=== PATIENT | male | born 1960 | race African-American/Black ===

== ENCOUNTER 2017-03-28 16:10 | Inpatient (IN) | payer OTHER ==
[2017-03-28 16:56] VITALS: BMI 30.6
[2017-03-28] MEDS ORDERED: guaiFENesin/D-METHORPHAN HB 10 ML UNIT-DOSE CUPS PO PRN (17:16)
[2017-03-28] MEDS ORDERED: MAGNESIUM HYDROX 2400MG/30ML ORAL SUSPENSION 30 ML CUP PO PRN (17:16)
[2017-03-28] MEDS ORDERED: chlordiazePOXIDE HCL 25 MG CAPSULE PO PRN (17:16)
[2017-03-28] MEDS ORDERED: MAGNESIUM CITRATE 300 ML BOTTLE PO PRN (17:16)
[2017-03-28] MEDS ORDERED: MAG HYDROX/AL HYDROX/SIMETH 30 ML UNIT-DOSE CUP PO PRN (17:16)
[2017-03-28] MEDS ORDERED: chlordiazePOXIDE HCL 25 MG CAPSULE PO ONE (17:16)
[2017-03-28] MEDS ORDERED: IBUPROFEN 400 MG TABLET (FP) PO PRN (17:16)
[2017-03-28] MEDS ORDERED: ACETAMINOPHEN 325 MG TABLET (FP) PO PRN (17:16)
[2017-03-28] MEDS ORDERED: P-EPHED 60MG/TRIPROLIDI 2.5MG TABLET PO PRN (17:16)
[2017-03-28] MEDS ORDERED: LOPERAMIDE HCL 2 MG CAPSULE PO PRN (17:16)
[2017-03-28] MEDS ORDERED: hydrOXYzine PAMOATE 50 MG CAPSULE (FP) PO PRN (17:16)
[2017-03-28] MEDS ORDERED: MENTHOL/PHENOL 1 EACH UD MM PRN (17:16)
--- NOTE | 2017-03-28 17:27 | HP ---
CIWA Score - CIWA Score Nausea/Vomitin Muscle Tremors: 4-Moderate,w/Arms Extend Anxiety: 4-Mod. Anxious/Guarded Agitation: 4-Moderately Restless Paroxysmal Sweats: 3 Orientation: 0-Oriented Tacttile Disturbances: 0-None Auditory Disturbances: 0-None Visual Disturbances: 0-None Headache: 0-None Present CIWA-Ar Total Score: 18 Admission ROS BHS - HPI Chief Complaint: Withdrawal sx. Allergies/Adverse Reactions: Allergies Allergy/AdvReac Type Severity Reaction Status Date / Time Penicillins Allergy Severe Rash Verified 07/05/14 11:50 History of Present Illness: 56 y/o man with a long hx. of alcoholism is admitted for detox. Pt. has been in previous detox, reports 3 yrs. sobriety which included residential. Exam Limitations: No Limitations - Ebola screening Have you traveled outside of the country in the last 21 days: No (N) Have you had contact with anyone from an Ebola affected area: No Have you been sick,other than usual withdrawal symptoms: No Do you have a fever: No - Review of Systems Constitutional: Diaphoresis EENT: reports: No Symptoms Reported Respiratory: reports: No Symptoms reported Cardiac: reports: No Symptoms Reported GI: reports: Nausea, Abdominal cramping : reports: No Symptoms Reported Musculoskeletal: reports: Joint Pain Integumentary: reports: Sweating Neuro: reports: Tingling, Tremors Endocrine: reports: No Symptoms Reported Hematology: reports: No Symptoms Reported Psychiatric: reports: No Sypmtoms Reported Other Systems: Reviewed and Negative Patient History - Patient Medical History Hx Anemia: No Hx Asthma: No Hx Chronic Obstructive Pulmonary Disease (COPD): No Hx Cancer: No Hx Cardiac Disorders: No Hx Congestive Heart Failure: No Hx Hypertension: Yes (ON NORVASC) Hx Hypercholesterolemia: No Hx Pacemaker: No HX Cerebrovascular Accident: No Hx Seizures: No Hx Dementia: No Hx Diabetes: No Hx Gastrointestinal Disorders: No Hx Liver Disease: No Hx Genitourinary Disorders: No Hx Sexually Transmitted Disorders: No Hx Renal Disease (ESRD): No Hx Thyroid Disease: No Hx Human Immunodeficiency Virus (HIV): No Hx Hepatitis C: No Hx Depression: No Hx Suicide Attempt: No Hx Bipolar Disorder: No Hx Schizophrenia: No - Patient Surgical History Past Surgical History: No Hx Neurologic Surgery: No Hx Cataract Extraction: No Hx Cardiac Surgery: No Hx Lung Surgery: No Hx Breast Surgery: No Hx Breast Biopsy: No Hx Abdominal Surgery: No Hx Appendectomy: No Hx Cholecystectomy: No Hx Genitourinary Surgery: No Hx Section: No Hx Orthopedic Surgery: No - PPD History Previous Implant?: Yes Documented Results: Negative w/proof Implanted On Prior [facility] Admission?: Yes Date: 07/07/14 Results: 0 mm PPD to be Administered?: Yes - Smoking Cessation Smoking history: Former smoker (quit 30 yrs. ago) Have you smoked in the past 12 months: No Hx Chewing Tobacco Use: No Initiated information on smoking cessation: No - Substance & Tx. History Hx Alcohol Use: Yes Hx Substance Use: No Substance Use Type: Alcohol Hx Substance Use Treatment: Yes (Detox 11/2014) - Substances Abused Alcohol Route: Oral Frequency: Daily Amount used: vodka 1-2 pints Age of first use: 16 Date of Last Use: 03/28/17 Family Disease History - Family Disease History Family Disease History: Diabetes: Mother Admission Physical Exam [facility] - Vital Signs Vital Signs: Vital Signs - 24 hr 03/28/17 16:53 Temperature 98.2 F Pulse Rate 90 Respiratory 20 Rate Blood Pressure 155/85 - Physical General Appearance: Yes: Tremorous, Irritable, Sweating, Anxious HEENTM: Yes: Within Normal Limits Respiratory: Yes: Chest Non-Tender, Lungs Clear, Normal Breath Sounds Neck: Yes: Supple Breast: Yes: Breast Exam Deferred Cardiology: Yes: Regular Rhythm, Regular Rate, S1, S2 Abdominal: Yes: Normal Bowel Sounds, Non Tender, Flat Genitourinary: Yes: Within Normal Limits Back: Yes: Within Normal Limits Musculoskeletal: Yes: Within Normal Limits Extremities: Yes: Tremors Neurological: Yes: Fully Oriented, Alert Integumentary: Yes: Diaphoresis Lymphatic: Yes: Within Normal Limits - Diagnostic (1) Alcohol dependence with uncomplicated withdrawal Current Visit: Yes Status: Acute (2) Arthritis of both knees Current Visit: Yes Status: Acute (3) Essential hypertension Current Visit: Yes Status: Chronic Cleared for Admission [facility] - Detox or Rehab [facility] Level of Care: Medically Managed Detox Regimen/Protocol: Librium [facility] Breath Alcohol Content Breath Alcohol Content: 0 Urine Drug Screen - Results Drug Screen Negative: Yes Urine Drug Screen Results: BZO-Benzodiazepines
[2017-03-28] MEDS: amLODIPine BESYLATE 10 MG TABLET (FP) PO SCH (19:31)
[2017-03-28] MEDS: THIAMINE HCL 100 MG TABLET (FP) PO SCH (22:36)
[2017-03-28] MEDS: chlordiazePOXIDE HCL 25 MG CAPSULE PO SCH (22:36)
[2017-03-29] MEDS: chlordiazePOXIDE HCL 25 MG CAPSULE PO SCH ×4 (05:58→22:42)
[2017-03-29 10:32] LABS: HEMATOCRIT 38.6 % (35.4-49); HEMOGLOBIN 12.1 GM/dL (11.7-16.9); MCH 21.8 pg (25.7-33.7); MCHC 31.2 g/dl (32.0-35.9); MEAN CELL VOLUME 69.7 fl (80-96); MEAN PLT VOLUME 9.1 fl (7.5-11.1); PLATELET COUNT 176 K/MM3 (134-434); RBC 5.54 M/mm3 (4.00-5.60); RDW 17.3 % (11.9-15.9); WHITE BLOOD COUNT 4.2 K/mm3 (4.0-10.0)
[2017-03-29 10:34] LABS: ALBUMIN 3.5 g/dl (3.4-5.0); ANION GAP 8 (8-16); BLOOD UREA NITROGEN 20 mg/dL (7-18); CALCIUM 8.3 mg/dL (8.5-10.1); CHLORIDE 104 mmol/L (98-107); CO2 26 mmol/L (21-32); CREATININE 0.9 mg/dL (0.7-1.3); GLUCOSE,RANDOM 73 mg/dL (74-106); POTASSIUM 3.7 mmol/L (3.5-5.1); SGOT/AST 51 U/L (15-37); SGPT/ALT 72 U/L (12-78); SODIUM 138 mmol/L (136-145)
[2017-03-29 10:35] LABS: ALK PHOS 74 U/L (45-117); BILIRUBIN,TOTAL 0.4 mg/dL (0.2-1.0); TOT PROT 7.1 g/dl (6.4-8.2)
[2017-03-29] MEDS: amLODIPine BESYLATE 10 MG TABLET (FP) PO SCH (10:38)
[2017-03-29] MEDS: PRENATAL VITAMINS W/ FOLIC ACID TABLET (FP) PO SCH (10:38)
[2017-03-29 12:33] LABS: URINE APPEARANCE CLEAR; URINE BILIRUBIN NEGATIVE (NEGATIVE); URINE BLOOD NEGATIVE (NEGATIVE); URINE COLOR LTYELLOW; URINE GLUCOSE (UA) NEGATIVE (NEGATIVE); URINE KETONE NEGATIVE (NEGATIVE); URINE LEUK ESTERASE NEGATIVE (NEGATIVE); URINE NITRITE NEGATIVE (NEGATIVE); URINE PROTEIN NEGATIVE (NEGATIVE); URINE UROBILINOGEN NEGATIVE mg/dL (0.2-1.0)
--- NOTE | 2017-03-29 12:51 | EKG ---
Test Reason : Blood Pressure : / mmHG Vent. Rate : 090 BPM Atrial Rate : 090 BPM P-R Int : 182 ms QRS Dur : 088 ms QT Int : 362 ms P-R-T Axes : 059 005 036 degrees QTc Int : 442 ms NORMAL SINUS RHYTHM NORMAL ECG NO PREVIOUS ECGS AVAILABLE Confirmed by Yohannes Coe ([id number]) on 03/29/2017 12:51:20 PM Referred By: Confirmed By:Yohannes Coe
--- NOTE | 2017-03-29 17:05 | PN ---
[facility] CIWA - CIWA Score Nausea/Vomitin Muscle Tremors: 3 Anxiety: 3 Agitation: 3 Paroxysmal Sweats: 3 Orientation: 0-Oriented Tacttile Disturbances: 1-Very Mild Itch/Numbness Auditory Disturbances: 0-None Visual Disturbances: 0-None Headache: 0-None Present CIWA-Ar Total Score: 15 [facility] Progress Note (SOAP) Subjective: Sweating, nausea, anxious, interrupted sleep Objective: 03/29/17 17:02 Last Vital Signs Temp Pulse Resp BP Pulse Ox 98.6 F 84 18 126/83 03/29/17 13:32 03/29/17 13:32 03/29/17 13:32 03/29/17 13:32 Laboratory Tests 03/29/17 03/29/17 03/29/17 07:40 07:40 07:40 WBC 4.2 D RBC 5.54 Hgb 12.1 Hct 38.6 MCV 69.7 L MCH 21.8 L MCHC 31.2 L RDW 17.3 H Plt Count 176 MPV 9.1 Sodium 138 Potassium 3.7 Chloride 104 Carbon Dioxide 26 Anion Gap 8 BUN 20 H D Creatinine 0.9 Creat Clearance w eGFR > 60 Random Glucose 73 L D Calcium 8.3 L Total Bilirubin 0.4 D AST 51 H D ALT 72 D Alkaline Phosphatase 74 Total Protein 7.1 Albumin 3.5 Urine Color Urine Appearance Urine pH Ur Specific [place] Urine Protein Urine Glucose (UA) Urine Ketones Urine Blood Urine Nitrite Urine Bilirubin Urine Urobilinogen Ur Leukocyte Esterase RPR Titer Nonreactive 03/29/17 10:56 WBC RBC Hgb Hct MCV MCH MCHC RDW Plt Count MPV Sodium Potassium Chloride Carbon Dioxide Anion Gap BUN Creatinine Creat Clearance w eGFR Random Glucose Calcium Total Bilirubin AST ALT Alkaline Phosphatase Total Protein Albumin Urine Color Ltyellow Urine Appearance Clear Urine pH 6.0 Ur Specific [place] 1.019 Urine Protein Negative Urine Glucose (UA) Negative Urine Ketones Negative Urine Blood Negative Urine Nitrite Negative Urine Bilirubin Negative Urine Urobilinogen Negative Ur Leukocyte Esterase Negative RPR Titer Labs noted: bun 20 Assessment: 03/29/17 17:04 Withdrawal symptoms Noted with azotemia Plan: Continue detox Azotemia: encouraged to drink lots of water
[2017-03-29] MEDS: THIAMINE HCL 100 MG TABLET (FP) PO SCH (22:42)
[2017-03-30] MEDS: chlordiazePOXIDE HCL 25 MG CAPSULE PO SCH ×3 (05:51→17:31)
[2017-03-30] MEDS: amLODIPine BESYLATE 10 MG TABLET (FP) PO SCH (10:35)
[2017-03-30] MEDS: PRENATAL VITAMINS W/ FOLIC ACID TABLET (FP) PO SCH (10:35)
--- NOTE | 2017-03-30 12:23 | PN ---
[facility] CIWA - CIWA Score Nausea/Vomitin-No Nausea/No Vomiting Muscle Tremors: 4-Moderate,w/Arms Extend Anxiety: 4-Mod. Anxious/Guarded Agitation: 3 Paroxysmal Sweats: 1-Minimal Palms Moist Orientation: 0-Oriented Tacttile Disturbances: 3-Moderate Itch/Numb/Burn Auditory Disturbances: 0-None Visual Disturbances: 0-None Headache: 0-None Present CIWA-Ar Total Score: 15 [facility] Progress Note (SOAP) Subjective: SLIGHT ANXIETY,SWEATS,FATIGUE. Objective: 03/30/17 12:22 Vital Signs Temperature 98.2 F 03/30/17 09:48 Pulse Rate 91 H 03/30/17 09:48 Respiratory Rate 18 03/30/17 09:48 Blood Pressure 123/79 03/30/17 09:48 O2 Sat by Pulse Oximetry (%) Laboratory Last Values WBC 4.2 K/mm3 (4.0-10.0) D 03/29/17 07:40 RBC 5.54 M/mm3 (4.00-5.60) 03/29/17 07:40 Hgb 12.1 GM/dL (11.7-16.9) 03/29/17 07:40 Hct 38.6 % (35.4-49) 03/29/17 07:40 MCV 69.7 fl (80-96) L 03/29/17 07:40 MCH 21.8 pg (25.7-33.7) L 03/29/17 07:40 MCHC 31.2 g/dl (32.0-35.9) L 03/29/17 07:40 RDW 17.3 % (11.9-15.9) H 03/29/17 07:40 Plt Count 176 K/MM3 (134-434) 03/29/17 07:40 MPV 9.1 fl (7.5-11.1) 03/29/17 07:40 Sodium 138 mmol/L (136-145) 03/29/17 07:40 Potassium 3.7 mmol/L (3.5-5.1) 03/29/17 07:40 Chloride 104 mmol/L (98-107) 03/29/17 07:40 Carbon Dioxide 26 mmol/L (21-32) 03/29/17 07:40 Anion Gap 8 (8-16) 03/29/17 07:40 BUN 20 mg/dL (7-18) H D 03/29/17 07:40 Creatinine 0.9 mg/dL (0.7-1.3) 03/29/17 07:40 Creat Clearance w eGFR > 60 (>60) 03/29/17 07:40 Random Glucose 73 mg/dL (74-106) L D 03/29/17 07:40 Calcium 8.3 mg/dL (8.5-10.1) L 03/29/17 07:40 Total Bilirubin 0.4 mg/dL (0.2-1.0) D 03/29/17 07:40 AST 51 U/L (15-37) H D 03/29/17 07:40 ALT 72 U/L (12-78) D 03/29/17 07:40 Alkaline Phosphatase 74 U/L (45-117) 03/29/17 07:40 Total Protein 7.1 g/dl (6.4-8.2) 03/29/17 07:40 Albumin 3.5 g/dl (3.4-5.0) 03/29/17 07:40 Urine Color Ltyellow 03/29/17 10:56 Urine Appearance Clear 03/29/17 10:56 Urine pH 6.0 (5.0-8.0) 03/29/17 10:56 Ur Specific [place] 1.019 (1.001-1.035) 03/29/17 10:56 Urine Protein Negative (NEGATIVE) 03/29/17 10:56 Urine Glucose (UA) Negative (NEGATIVE) 03/29/17 10:56 Urine Ketones Negative (NEGATIVE) 03/29/17 10:56 Urine Blood Negative (NEGATIVE) 03/29/17 10:56 Urine Nitrite Negative (NEGATIVE) 03/29/17 10:56 Urine Bilirubin Negative (NEGATIVE) 03/29/17 10:56 Urine Urobilinogen Negative mg/dL (0.2-1.0) 03/29/17 10:56 Ur Leukocyte Esterase Negative (NEGATIVE) 03/29/17 10:56 RPR Titer Nonreactive (NONREACTIVE) 03/29/17 07:40 Assessment: 03/30/17 12:22 WITHDRAWAL SX Plan: CONTINUE DETOX.
--- NOTE | 2017-03-30 12:24 | CONSULT ---
[facility] Psychiatric Consult - Data Date of interview: 03/30/17 Admission source: [facility] Identifying data: Pt. is a 56 year old male, single, father of two, currently working and collecting SSI. [facility] Pt. admitted to for Alcohol dependence. Substance Abuse History: - Substance & Tx. History. Hx Alcohol Use: Yes. Hx Substance Use: No. Substance Use Type: Alcohol. Hx Substance Use Treatment: Yes (Detox 11/2014). - Substances Abused. Alcohol. Route: Oral. Frequency : Daily. Amount used: vodka 1-2 pints. Age of first use: 16. Date of Last Use : Medical History: Hypertension. Psychiatric History: Pt. reports approximately 12 psychiatric hospitalizations, most recently hospitalized at [facility] in 2015 for depression and at [facility] in 2014. Pt. has also been hospitalized at [place] and at [facility] in [place]. States he has a diagnosis of Bipolar disorder and schizophrenia but is Medication nonadherent. Reports previously taking seroquel 3-4 months ago. Pt. denies OPC. States his PCP prescribes him xanax and ambien. Pt. denies h/o suicide attempt. Physical/Sexual Abuse/Trauma History: Denies. Mental Status Exam - Mental Status Exam Alert and Oriented to: Time, Place, Person Cognitive Function: Good Patient Appearance: Well Groomed Mood: Hopeful Affect: Mood Congruent Patient Behavior: Appropriate, Cooperative Speech Pattern: Clear, Appropriate Voice Loudness: Normal Thought Process: Goal Oriented Thought Disorder: Not Present Hallucinations: Denies Suicidal Ideation: Denies Homicidal Ideation: Denies Insight/Judgement: Poor Sleep: Poorly Appetite: Good Muscle strength/Tone: Normal Gait/Station: Normal Psychiatric Findings - Problem List (Gilbert 1, 2,3) (1) Alcohol dependence with uncomplicated withdrawal Current Visit: Yes Status: Acute (2) Insomnia Current Visit: Yes Status: Acute (3) Bipolar disorder Current Visit: No Status: Chronic Comment: Self reports. (4) Schizophrenia Current Visit: No Status: Chronic Comment: Self reports. - Initial Treatment Plan Initial Treatment Plan: Psychoeducation provided. Detoxification in progress. Ambien 10mg qhs prn ordered. Verbal consent given. Benefits and side effects ( sleep walking) discussed. Will continue to monitor patient.
[2017-03-30] MEDS: chlordiazePOXIDE 5 MG CAPSULE PO SCH (22:37)
[2017-03-30] MEDS: ZOLPIDEM TARTRATE 10 MG TABLET (PARK CARE ONLY) PO PRN (22:37)
[2017-03-30] MEDS: THIAMINE HCL 100 MG TABLET (FP) PO SCH (22:38)
[2017-03-31] MEDS: chlordiazePOXIDE 5 MG CAPSULE PO SCH ×3 (05:42→17:21)
[2017-03-31] MEDS: amLODIPine BESYLATE 10 MG TABLET (FP) PO SCH (10:50)
[2017-03-31] MEDS: PRENATAL VITAMINS W/ FOLIC ACID TABLET (FP) PO SCH (10:50)
--- NOTE | 2017-03-31 15:33 | PN ---
S Progress Note (SOAP) Subjective: OOB AMBULATING WITH STEADY GAIT. NAD. SLIGHT ANXIETY BUT REPORTS DETOX PROCEEDING WELL. Objective: 03/31/17 15:33 Vital Signs Temperature 98.7 F 03/31/17 13:54 Pulse Rate 87 03/31/17 13:54 Respiratory Rate 18 03/31/17 13:54 Blood Pressure 145/99 03/31/17 13:54 O2 Sat by Pulse Oximetry (%) Laboratory Last Values WBC 4.2 K/mm3 (4.0-10.0) D 03/29/17 07:40 RBC 5.54 M/mm3 (4.00-5.60) 03/29/17 07:40 Hgb 12.1 GM/dL (11.7-16.9) 03/29/17 07:40 Hct 38.6 % (35.4-49) 03/29/17 07:40 MCV 69.7 fl (80-96) L 03/29/17 07:40 MCH 21.8 pg (25.7-33.7) L 03/29/17 07:40 MCHC 31.2 g/dl (32.0-35.9) L 03/29/17 07:40 RDW 17.3 % (11.9-15.9) H 03/29/17 07:40 Plt Count 176 K/MM3 (134-434) 03/29/17 07:40 MPV 9.1 fl (7.5-11.1) 03/29/17 07:40 Sodium 138 mmol/L (136-145) 03/29/17 07:40 Potassium 3.7 mmol/L (3.5-5.1) 03/29/17 07:40 Chloride 104 mmol/L (98-107) 03/29/17 07:40 Carbon Dioxide 26 mmol/L (21-32) 03/29/17 07:40 Anion Gap 8 (8-16) 03/29/17 07:40 BUN 20 mg/dL (7-18) H D 03/29/17 07:40 Creatinine 0.9 mg/dL (0.7-1.3) 03/29/17 07:40 Creat Clearance w eGFR > 60 (>60) 03/29/17 07:40 Random Glucose 73 mg/dL (74-106) L D 03/29/17 07:40 Calcium 8.3 mg/dL (8.5-10.1) L 03/29/17 07:40 Total Bilirubin 0.4 mg/dL (0.2-1.0) D 03/29/17 07:40 AST 51 U/L (15-37) H D 03/29/17 07:40 ALT 72 U/L (12-78) D 03/29/17 07:40 Alkaline Phosphatase 74 U/L (45-117) 03/29/17 07:40 Total Protein 7.1 g/dl (6.4-8.2) 03/29/17 07:40 Albumin 3.5 g/dl (3.4-5.0) 03/29/17 07:40 Urine Color Ltyellow 03/29/17 10:56 Urine Appearance Clear 03/29/17 10:56 Urine pH 6.0 (5.0-8.0) 03/29/17 10:56 Ur Specific [place] 1.019 (1.001-1.035) 03/29/17 10:56 Urine Protein Negative (NEGATIVE) 03/29/17 10:56 Urine Glucose (UA) Negative (NEGATIVE) 03/29/17 10:56 Urine Ketones Negative (NEGATIVE) 03/29/17 10:56 Urine Blood Negative (NEGATIVE) 03/29/17 10:56 Urine Nitrite Negative (NEGATIVE) 03/29/17 10:56 Urine Bilirubin Negative (NEGATIVE) 03/29/17 10:56 Urine Urobilinogen Negative mg/dL (0.2-1.0) 03/29/17 10:56 Ur Leukocyte Esterase Negative (NEGATIVE) 03/29/17 10:56 RPR Titer Nonreactive (NONREACTIVE) 03/29/17 07:40 Assessment: 03/31/17 15:33 WITHDRAWAL SX Plan: CONTINUE DETOX
[2017-03-31] MEDS: THIAMINE HCL 100 MG TABLET (FP) PO SCH (22:25)
[2017-03-31] MEDS: ZOLPIDEM TARTRATE 10 MG TABLET (PARK CARE ONLY) PO PRN (22:25)
[2017-03-31 22:26] VITALS: PULSE 93
[2017-03-31] MEDS: chlordiazePOXIDE HCL 10 MG CAPSULE PO SCH (22:27)
[2017-04-01] MEDS: chlordiazePOXIDE HCL 10 MG CAPSULE PO SCH (05:23)
[2017-04-01 06:20] VITALS: BP 156/94; TEMP 97.8
--- NOTE | 2017-04-01 08:32 | DS ---
[facility] Detox Discharge Summary Admission Date: 03/28/17 Discharge Date: 04/01/17 - History Present History: Alcohol Dependence Additional Comments: DETOX COMPLETED. ALERT O X3. NAD. PT REPORTS HAS OWN PMD AND HAS APPOINTMENT IN 2 WEEKS.. INSTRUCTED PT TO FOLLOW UP WITH PMD NEEDED. NORVASC 10 MG PO DAILY RX FOR #30 SENT TO PT'SPHARMACY TILL HE CAN GET TO HIS DOCTOR. Pertinent Past History: HTN ARTHRITIS - Physical Exam Results Vital Signs: Vital Signs Temperature 97.8 F 04/01/17 06:19 Pulse Rate 93 H 04/01/17 06:19 Respiratory Rate 18 04/01/17 06:19 Blood Pressure 156/94 04/01/17 06:19 O2 Sat by Pulse Oximetry (%) Pertinent Admission Physical Exam Findings: WITHDRAWAL SX Laboratory Last Values WBC 4.2 K/mm3 (4.0-10.0) D 03/29/17 07:40 RBC 5.54 M/mm3 (4.00-5.60) 03/29/17 07:40 Hgb 12.1 GM/dL (11.7-16.9) 03/29/17 07:40 Hct 38.6 % (35.4-49) 03/29/17 07:40 MCV 69.7 fl (80-96) L 03/29/17 07:40 MCH 21.8 pg (25.7-33.7) L 03/29/17 07:40 MCHC 31.2 g/dl (32.0-35.9) L 03/29/17 07:40 RDW 17.3 % (11.9-15.9) H 03/29/17 07:40 Plt Count 176 K/MM3 (134-434) 03/29/17 07:40 MPV 9.1 fl (7.5-11.1) 03/29/17 07:40 Sodium 138 mmol/L (136-145) 03/29/17 07:40 Potassium 3.7 mmol/L (3.5-5.1) 03/29/17 07:40 Chloride 104 mmol/L (98-107) 03/29/17 07:40 Carbon Dioxide 26 mmol/L (21-32) 03/29/17 07:40 Anion Gap 8 (8-16) 03/29/17 07:40 BUN 20 mg/dL (7-18) H D 03/29/17 07:40 Creatinine 0.9 mg/dL (0.7-1.3) 03/29/17 07:40 Creat Clearance w eGFR > 60 (>60) 03/29/17 07:40 Random Glucose 73 mg/dL (74-106) L D 03/29/17 07:40 Calcium 8.3 mg/dL (8.5-10.1) L 03/29/17 07:40 Total Bilirubin 0.4 mg/dL (0.2-1.0) D 03/29/17 07:40 AST 51 U/L (15-37) H D 03/29/17 07:40 ALT 72 U/L (12-78) D 03/29/17 07:40 Alkaline Phosphatase 74 U/L (45-117) 03/29/17 07:40 Total Protein 7.1 g/dl (6.4-8.2) 03/29/17 07:40 Albumin 3.5 g/dl (3.4-5.0) 03/29/17 07:40 Urine Color Ltyellow 03/29/17 10:56 Urine Appearance Clear 03/29/17 10:56 Urine pH 6.0 (5.0-8.0) 03/29/17 10:56 Ur Specific [place] 1.019 (1.001-1.035) 03/29/17 10:56 Urine Protein Negative (NEGATIVE) 03/29/17 10:56 Urine Glucose (UA) Negative (NEGATIVE) 03/29/17 10:56 Urine Ketones Negative (NEGATIVE) 03/29/17 10:56 Urine Blood Negative (NEGATIVE) 03/29/17 10:56 Urine Nitrite Negative (NEGATIVE) 03/29/17 10:56 Urine Bilirubin Negative (NEGATIVE) 03/29/17 10:56 Urine Urobilinogen Negative mg/dL (0.2-1.0) 03/29/17 10:56 Ur Leukocyte Esterase Negative (NEGATIVE) 03/29/17 10:56 RPR Titer Nonreactive (NONREACTIVE) 03/29/17 07:40 - Treatment Hospital Course: Detox Protocol Followed, Detoxed Safely, Responded well, Discharged Condition Good - Medication Discharge Medications: Ambulatory Orders Amlodipine Besylate [Norvasc -] 10 mg PO DAILY #30 tablet 04/01/17 - Diagnosis (1) Alcohol dependence with uncomplicated withdrawal Status: Acute (2) Arthritis of both knees Status: Chronic (3) Essential hypertension Status: Chronic - AMA Did Patient Leave Against Medical Advice: No
== END 2017-04-01 08:38 | disposition home or self-care (01) | DRG 897 ==
LOC: YASAS 16:10 → Y3N 17:11
PROVIDERS: ADMIT Internal Medicine; ATTEND Internal Medicine
PROC: HZ2ZZZZ Detoxification Services for Substance Abuse Treatment (ICD-10-PCS; principal; 2017-03-28)
DX: F10.230 Alcohol dependence with withdrawal, uncomplicated (principal); F31.9 Bipolar disorder, unspecified; F20.9 Schizophrenia, unspecified; I10 Essential (primary) hypertension; M13.862 Other specified arthritis, left knee; M13.861 Other specified arthritis, right knee; G47.00 Insomnia, unspecified; R79.89 Other specified abnormal findings of blood chemistry; Z88.0 Allergy status to penicillin; Z87.891 Personal history of nicotine dependence
CPT/HCPCS: 36415; 80053; 81003; 85027; 86593; 93005; 93010

== ENCOUNTER 2017-05-24 18:04 | Inpatient (IN) | payer MEDICARE, OTHER ==
[2017-05-24 18:29] VITALS: BMI 30.7
--- NOTE | 2017-05-24 20:26 | HP ---
CIWA Score - CIWA Score Nausea/Vomitin Muscle Tremors: 4-Moderate,w/Arms Extend Anxiety: 4-Mod. Anxious/Guarded Agitation: 4-Moderately Restless Paroxysmal Sweats: 1-Minimal Palms Moist Orientation: 0-Oriented Tacttile Disturbances: 1-Very Mild Itch/Numbness Auditory Disturbances: 0-None Visual Disturbances: 0-None Headache: 0-None Present CIWA-Ar Total Score: 17 Admission ROS S - HPI Chief Complaint: Alcohol withdrawal symptoms Allergies/Adverse Reactions: Allergies Allergy/AdvReac Type Severity Reaction Status Date / Time Penicillins Allergy Severe Rash Verified 07/05/14 11:50 History of Present Illness: 56 years old male with a long history of alcohol dependence is seeking admission to detox. Patient has been in previous detox, last at [facility] 2017 - 04/01/2017 and he reports insignificant period of sobriety. Patient has medical history of HTN, depression and arthritis of both knees. He denies suicide attempt and suicidal ideation at this point. Exam Limitations: No Limitations - Ebola screening Have you traveled outside of the country in the last 21 days: No Have you had contact with anyone from an Ebola affected area: No Have you been sick,other than usual withdrawal symptoms: No Do you have a fever: No - Review of Systems Constitutional: Chills, Loss of Appetite, Malaise, Night Sweats, Changes in sleep EENT: reports: No Symptoms Reported Respiratory: reports: Cough Cardiac: reports: No Symptoms Reported GI: reports: Nausea, Poor Appetite, Poor Fluid Intake, Abdominal cramping : reports: No Symptoms Reported Musculoskeletal: reports: Back Pain, Joint Pain, Joint Stiffness Integumentary: reports: Dryness, Flushing Endocrine: reports: Flushing Hematology: reports: No Symptoms Reported Psychiatric: reports: Orientated x3, Anxious Other Systems: Reviewed and Negative Patient History - Patient Medical History Hx Anemia: No Hx Asthma: No Hx Chronic Obstructive Pulmonary Disease (COPD): No Hx Cancer: No Hx Cardiac Disorders: No Hx Congestive Heart Failure: No Hx Hypertension: Yes (Amlodipine ) Hx Hypercholesterolemia: No Hx Pacemaker: No HX Cerebrovascular Accident: No Hx Seizures: No Hx Dementia: No Hx Diabetes: No Hx Gastrointestinal Disorders: No Hx Liver Disease: No Hx Genitourinary Disorders: No Hx Sexually Transmitted Disorders: No Hx Renal Disease (ESRD): No Hx Thyroid Disease: No Hx Human Immunodeficiency Virus (HIV): No (Negative 2017) Hx Hepatitis C: No (Negative 2017) Hx Depression: Yes (Not on medication) Hx Suicide Attempt: No (Denies suicidal ideation at this time) Hx Bipolar Disorder: No Hx Schizophrenia: No Other Medical History: Insomnia -on Ambien; Arthritis of both knees - not on medication - Patient Surgical History Past Surgical History: No Hx Neurologic Surgery: No Hx Cataract Extraction: No Hx Cardiac Surgery: No Hx Lung Surgery: No Hx Abdominal Surgery: No Hx Appendectomy: No Hx Cholecystectomy: No Hx Genitourinary Surgery: No Hx Orthopedic Surgery: No Anesthesia Reaction: No - PPD History Previous Implant?: Yes Documented Results: Negative w/o proof Implanted On Prior [facility] Admission?: Yes Date: 03/30/17 Results: 0 mm PPD to be Administered?: No - Reproductive History Patient is a Female of Child Bearing Age (11 -55 yrs old): No (MALE) - Smoking Cessation Smoking history: Former smoker Have you smoked in the past 12 months: No If you are a former smoker, when did you quit?: 10 YEARS Hx Chewing Tobacco Use: No Initiated information on smoking cessation: No - Substance & Tx. History Hx Alcohol Use: Yes Hx Substance Use: No Hx Substance Use Treatment: Yes ([facility] - 03/28/2015 - 04/01/2017) - Substances Abused Alcohol Route: Oral Frequency: Daily Amount used: 1QUART VODKA AND 4/16OZ BEER Age of first use: 16 Date of Last Use: 05/24/17 Family Disease History - Family Disease History Family Disease History: Diabetes: Mother Admission Physical Exam [facility] - Vital Signs Vital Signs: Vital Signs - 24 hr 05/24/17 18:04 Temperature 97.8 F Pulse Rate 99 H Respiratory 19 Rate Blood Pressure 138/79 - Physical General Appearance: Yes: Moderate Distress, Tremorous, Irritable, Sweating, Anxious HEENTM: Yes: EOMI, Normal ENT Inspection, Normal Voice, MARYSE, Other (partial upper and lower dentures) Respiratory: Yes: Lungs Clear, Normal Breath Sounds, No Respiratory Distress Neck: Yes: Supple Breast: Yes: Breast Exam Deferred Cardiology: Yes: Regular Rhythm, Regular Rate, S1, S2 Abdominal: Yes: Normal Bowel Sounds, Soft Genitourinary: Yes: Within Normal Limits Back: Yes: Normal Inspection Musculoskeletal: Yes: Back pain (lower), Joint Stiffness, Muscle Pain Extremities: Yes: Tremors Neurological: Yes: Alert, Normal Mood/Affect Integumentary: Yes: Warm Lymphatic: Yes: Within Normal Limits - Diagnostic (1) Depression Current Visit: Yes Status: Chronic (2) Alcohol dependence with uncomplicated withdrawal Current Visit: Yes Status: Chronic (3) Arthritis of both knees Current Visit: Yes Status: Chronic (4) Essential hypertension Current Visit: Yes Status: Chronic Cleared for Admission [facility] - Detox or Rehab [facility] Level of Care: Medically Managed Detox Regimen/Protocol: Librium [facility] Breath Alcohol Content Breath Alcohol Content: 0 Urine Drug Screen - Results Drug Screen Negative: No Urine Drug Screen Results: TCA-Tricyclic Antidepress
[2017-05-24] MEDS ORDERED: ACETAMINOPHEN 325 MG TABLET (FP) PO PRN (20:41)
[2017-05-24] MEDS ORDERED: chlordiazePOXIDE HCL 25 MG CAPSULE PO PRN (20:41)
[2017-05-24] MEDS ORDERED: MAGNESIUM HYDROX 2400MG/30ML ORAL SUSPENSION 30 ML CUP PO PRN (20:41)
[2017-05-24] MEDS ORDERED: IBUPROFEN 400 MG TABLET (FP) PO PRN (20:41)
[2017-05-24] MEDS ORDERED: P-EPHED 60MG/TRIPROLIDI 2.5MG TABLET PO PRN (20:41)
[2017-05-24] MEDS ORDERED: LOPERAMIDE HCL 2 MG CAPSULE PO PRN (20:41)
[2017-05-24] MEDS ORDERED: MAGNESIUM CITRATE 300 ML BOTTLE PO PRN (20:41)
[2017-05-24] MEDS ORDERED: MAG HYDROX/AL HYDROX/SIMETH 30 ML UNIT-DOSE CUP PO PRN (20:41)
[2017-05-24] MEDS: THIAMINE HCL 100 MG TABLET (FP) PO SCH (22:09)
[2017-05-24] MEDS: chlordiazePOXIDE HCL 25 MG CAPSULE PO SCH (22:09)
[2017-05-24] MEDS: guaiFENesin/D-METHORPHAN HB 10 ML UNIT-DOSE CUPS PO PRN (22:10)
--- NOTE | 2017-05-24 23:00 | EKG ---
Test Reason : Blood Pressure : / mmHG Vent. Rate : 088 BPM Atrial Rate : 088 BPM P-R Int : 172 ms QRS Dur : 092 ms QT Int : 366 ms P-R-T Axes : 073 005 036 degrees QTc Int : 442 ms NORMAL SINUS RHYTHM NORMAL ECG WHEN COMPARED WITH ECG OF 28-MAR-2017 19:32, NO SIGNIFICANT CHANGE WAS FOUND Confirmed by DEDRA WILL MD ([id number]) on 05/24/2017 10:59:29 PM Referred By: Davi Shah Confirmed By:DEDRA WILL MD
[2017-05-25] MEDS: chlordiazePOXIDE HCL 25 MG CAPSULE PO SCH ×4 (05:02→22:16)
--- NOTE | 2017-05-25 10:11 | PN ---
S CIWA - CIWA Score Nausea/Vomitin-No Nausea/No Vomiting Muscle Tremors: 3 Anxiety: 4-Mod. Anxious/Guarded Agitation: 3 Paroxysmal Sweats: 2 Orientation: 0-Oriented Tacttile Disturbances: 1-Very Mild Itch/Numbness Auditory Disturbances: 0-None Visual Disturbances: 0-None Headache: 0-None Present CIWA-Ar Total Score: 13 [facility] Progress Note (SOAP) Subjective: ANXIETY,IRRITABILITY,SWEATS,INTERMITTENT SLEEP. Objective: 05/25/17 10:10 Vital Signs Temperature 96.8 F L 05/25/17 09:02 Pulse Rate 93 H 05/25/17 09:02 Respiratory Rate 20 05/25/17 09:02 Blood Pressure 133/81 05/25/17 09:02 O2 Sat by Pulse Oximetry (%) LABS PENDING Assessment: 05/25/17 10:11 WITHDRAWAL SX Plan: CONTINUE DETOX
[2017-05-25] MEDS: PRENATAL VITAMINS W/ FOLIC ACID TABLET (FP) PO SCH (10:27)
[2017-05-25] MEDS: amLODIPine BESYLATE 10 MG TABLET (FP) PO SCH (10:27)
[2017-05-25] MEDS: guaiFENesin/D-METHORPHAN HB 10 ML UNIT-DOSE CUPS PO PRN ×2 (10:28→17:13)
[2017-05-25 10:30] LABS: HEMOGLOBIN 10.6 GM/dL (11.7-16.9); MCH 21.3 pg (25.7-33.7); MEAN CELL VOLUME 66.7 fl (80-96); PLATELET COUNT 211 K/MM3 (134-434); RBC 4.96 M/mm3 (4.00-5.60); RDW 17.6 % (11.9-15.9); WHITE BLOOD COUNT 2.4 K/mm3 (4.0-10.0)
[2017-05-25 10:31] LABS: URINE APPEARANCE CLEAR; URINE BILIRUBIN NEGATIVE (NEGATIVE); URINE BLOOD NEGATIVE (NEGATIVE); URINE COLOR LTYELLOW; URINE GLUCOSE (UA) NEGATIVE (NEGATIVE); URINE KETONE NEGATIVE (NEGATIVE); URINE LEUK ESTERASE NEGATIVE (NEGATIVE); URINE NITRITE NEGATIVE (NEGATIVE); URINE PROTEIN NEGATIVE (NEGATIVE); URINE UROBILINOGEN 4.0 E.U/dl mg/dL (0.2-1.0)
[2017-05-25 10:38] LABS: ALBUMIN 3.2 g/dl (3.4-5.0); ALK PHOS 65 U/L (45-117); ANION GAP 10 (8-16); BILIRUBIN,TOTAL 0.4 mg/dL (0.2-1.0); BLOOD UREA NITROGEN 12 mg/dL (7-18); CALCIUM 8.1 mg/dL (8.5-10.1); CHLORIDE 101 mmol/L (98-107); CO2 29 mmol/L (21-32); CREATININE 0.8 mg/dL (0.7-1.3); GLUCOSE,RANDOM 95 mg/dL (74-106); POTASSIUM 3.5 mmol/L (3.5-5.1); SGOT/AST 28 U/L (15-37); SGPT/ALT 24 U/L (12-78); SODIUM 140 mmol/L (136-145); TOT PROT 6.6 g/dl (6.4-8.2)
--- NOTE | 2017-05-25 11:56 | CONSULT ---
[facility] Psychiatric Consult - Data Date of interview: 05/25/17 Admission source: [facility] Identifying data: Readmission to [facility] for this 56 y/o AA male seeking detox treatment on for alcohol dependence.Patient is ,a father of two,domiciled and currently employed (as per self-report). Substance Abuse History: Discussed in this session.Mr Vu admits to consuming one quart of vodka on a daily basis.Endorses a 40 year history of alcohol dependence. Further details in current [facility] report : Smoking history: Former smoker. Have you smoked in the past 12 months: No. If you are a former smoker, when did you quit?: 10 YEARS. Hx Chewing Tobacco Use: No. Initiated information on smoking cessation: No. - Substance & Tx. History. Hx Alcohol Use: Yes. Hx Substance Use: No. Hx Substance Use Treatment: Yes ([facility] - 2015 - 04/01/2017). - Substances Abused. Alcohol. Route: Oral. Frequency : Daily. Amount used: 1QUART VODKA AND 4/16OZ BEER. Age of first use: 16. Date of Last Use: 05/24/17 Medical History: Hypertension and arthritis of both knees. Psychiatric History: Patient denies history of psychiatric hospitalizations or OPD care.Mr Vu denies history of suicide attempts as well.However,a review of records indicates a different profile as evidenced by notes from previous [facility] clinicians reporting " a history of 12 psychiatric hospitalizations, most recently hospitalized at [facility] in 2016 for depression and at [facility] in 2015 ". According to existing records, the patient is also known to [facility] and [facility] in [facility].Reportedly diagnosed with " Bipolar disorder and Schizophrenia " and treated in the past with seroquel.Chronic non-adherence to medications has been reported. Past exposure to xanax and zolpidem (from his primary care physician).In this interview, the patient declares his disinterest for ambien and requests switch to hydroxyzine to address chronic insomnia. Physical/Sexual Abuse/Trauma History: Patient denies. Additional Comment: Urine Drug Screen Results: TCA-Tricyclic Antidepressant.Noted. Mental Status Exam - Mental Status Exam Alert and Oriented to: Time, Place, Person Cognitive Function: Good Patient Appearance: Well Groomed Mood: Hopeful, Euthymic Affect: Appropriate, Normal Range Patient Behavior: Appropriate, Cooperative Speech Pattern: Clear, Appropriate Voice Loudness: Normal Thought Process: Goal Oriented Thought Disorder: Not Present Hallucinations: Denies Suicidal Ideation: Denies Homicidal Ideation: Denies Insight/Judgement: Poor Sleep: Poorly, Difficulty falling asleep Appetite: Good Muscle strength/Tone: Normal Gait/Station: Normal Psychiatric Findings - Problem List ([place] 1, 2,3) (1) Alcohol dependence with uncomplicated withdrawal Current Visit: Yes Status: Acute (2) Bipolar disorder Current Visit: Yes Status: Chronic Comment: As per records.Denied by patient in this encounter.Not on medications.OPD care : none. (3) Insomnia Current Visit: Yes Status: Acute - Initial Treatment Plan Initial Treatment Plan: Psychoeducation.Records are revisited.Sleep hygiene.Detoxification in progress.Patient is made aware of the benefits of psychopharmacotherapy + OPD care and the risks that he takes by abstaining from treatment.Mr Vu stood by his decision to take only vistail at bedtime.Side effects/benefits discussed.Vistaril 50 mg po hs prn.Observation.
[2017-05-25] MEDS: THIAMINE HCL 100 MG TABLET (FP) PO SCH (22:16)
[2017-05-25] MEDS: hydrOXYzine PAMOATE 50 MG CAPSULE (FP) PO PRN (22:17)
[2017-05-26] MEDS: chlordiazePOXIDE HCL 25 MG CAPSULE PO SCH ×3 (05:58→17:19)
[2017-05-26] MEDS: PRENATAL VITAMINS W/ FOLIC ACID TABLET (FP) PO SCH (10:06)
[2017-05-26] MEDS: amLODIPine BESYLATE 10 MG TABLET (FP) PO SCH (10:06)
--- NOTE | 2017-05-26 10:46 | PN ---
[facility] CIWA - CIWA Score Nausea/Vomitin-No Nausea/No Vomiting Muscle Tremors: 2 Anxiety: 4-Mod. Anxious/Guarded Agitation: 3 Paroxysmal Sweats: 1-Minimal Palms Moist Orientation: 0-Oriented Tacttile Disturbances: 3-Moderate Itch/Numb/Burn Auditory Disturbances: 0-None Visual Disturbances: 0-None Headache: 0-None Present CIWA-Ar Total Score: 13 BHS Progress Note (SOAP) Subjective: PT C/O SLIGHT ANXIETY,COUGH WITH BROWN SPUTUM. Objective: 05/26/17 10:44 Vital Signs Temperature 98.9 F 05/26/17 09:13 Pulse Rate 110 H 05/26/17 09:13 Respiratory Rate 18 05/26/17 09:13 Blood Pressure 152/87 05/26/17 09:13 O2 Sat by Pulse Oximetry (%) Laboratory Last Values WBC 2.4 K/mm3 (4.0-10.0) L D 05/25/17 07:00 RBC 4.96 M/mm3 (4.00-5.60) 05/25/17 07:00 Hgb 10.6 GM/dL (11.7-16.9) L D 05/25/17 07:00 Hct 33.0 % (35.4-49) L 05/25/17 07:00 MCV 66.7 fl (80-96) L 05/25/17 07:00 MCH 21.3 pg (25.7-33.7) L 05/25/17 07:00 MCHC 32.0 g/dl (32.0-35.9) 05/25/17 07:00 RDW 17.6 % (11.9-15.9) H 05/25/17 07:00 Plt Count 211 K/MM3 (134-434) 05/25/17 07:00 MPV 9.0 fl (7.5-11.1) 05/25/17 07:00 Sodium 140 mmol/L (136-145) 05/25/17 07:00 Potassium 3.5 mmol/L (3.5-5.1) 05/25/17 07:00 Chloride 101 mmol/L (98-107) 05/25/17 07:00 Carbon Dioxide 29 mmol/L (21-32) 05/25/17 07:00 Anion Gap 10 (8-16) 05/25/17 07:00 BUN 12 mg/dL (7-18) D 05/25/17 07:00 Creatinine 0.8 mg/dL (0.7-1.3) 05/25/17 07:00 Creat Clearance w eGFR > 60 (>60) 05/25/17 07:00 Random Glucose 95 mg/dL (74-106) D 05/25/17 07:00 Calcium 8.1 mg/dL (8.5-10.1) L 05/25/17 07:00 Total Bilirubin 0.4 mg/dL (0.2-1.0) 05/25/17 07:00 AST 28 U/L (15-37) D 05/25/17 07:00 ALT 24 U/L (12-78) D 05/25/17 07:00 Alkaline Phosphatase 65 U/L (45-117) 05/25/17 07:00 Total Protein 6.6 g/dl (6.4-8.2) 05/25/17 07:00 Albumin 3.2 g/dl (3.4-5.0) L 05/25/17 07:00 Urine Color Ltyellow 05/25/17 08:30 Urine Appearance Clear 05/25/17 08:30 Urine pH 7.0 (5.0-8.0) 05/25/17 08:30 Ur Specific [place] 1.013 (1.001-1.035) 05/25/17 08:30 Urine Protein Negative (NEGATIVE) 05/25/17 08:30 Urine Glucose (UA) Negative (NEGATIVE) 05/25/17 08:30 Urine Ketones Negative (NEGATIVE) 05/25/17 08:30 Urine Blood Negative (NEGATIVE) 05/25/17 08:30 Urine Nitrite Negative (NEGATIVE) 05/25/17 08:30 Urine Bilirubin Negative (NEGATIVE) 05/25/17 08:30 Urine Urobilinogen 4.0 e.u/dl mg/dL (0.2-1.0) 05/25/17 08:30 Ur Leukocyte Esterase Negative (NEGATIVE) 05/25/17 08:30 RPR Titer Nonreactive (NONREACTIVE) 05/25/17 07:00 Assessment: 05/26/17 10:45 SLIGHT WITHDRAWAL SX Plan: CONTINUE DETOX ROBITUSSIN DM PRN INCREASE PO FLUIDS
[2017-05-26] MEDS: guaiFENesin/D-METHORPHAN HB 10 ML UNIT-DOSE CUPS PO PRN (20:32)
[2017-05-26] MEDS: chlordiazePOXIDE 5 MG CAPSULE PO SCH (22:29)
[2017-05-26] MEDS: THIAMINE HCL 100 MG TABLET (FP) PO SCH (22:29)
[2017-05-26] MEDS: hydrOXYzine PAMOATE 50 MG CAPSULE (FP) PO PRN (22:30)
[2017-05-27] MEDS: chlordiazePOXIDE 5 MG CAPSULE PO SCH ×3 (05:07→18:14)
[2017-05-27] MEDS: guaiFENesin/D-METHORPHAN HB 10 ML UNIT-DOSE CUPS PO PRN (05:07)
[2017-05-27] MEDS: MENTHOL/PHENOL 1 EACH UD MM PRN (05:08)
[2017-05-27] MEDS: amLODIPine BESYLATE 10 MG TABLET (FP) PO SCH (10:07)
[2017-05-27] MEDS: PRENATAL VITAMINS W/ FOLIC ACID TABLET (FP) PO SCH (10:07)
--- NOTE | 2017-05-27 12:34 | PN ---
S Progress Note (SOAP) Subjective: REPORTS DETOX PROCEEDING WELL. DECREASED ANXIETY,SWEATS. Objective: 05/27/17 12:33 Vital Signs Temperature 98.3 F 05/27/17 09:28 Pulse Rate 93 H 05/27/17 09:28 Respiratory Rate 16 05/27/17 09:28 Blood Pressure 131/83 05/27/17 09:28 O2 Sat by Pulse Oximetry (%) Laboratory Last Values WBC 2.4 K/mm3 (4.0-10.0) L D 05/25/17 07:00 RBC 4.96 M/mm3 (4.00-5.60) 05/25/17 07:00 Hgb 10.6 GM/dL (11.7-16.9) L D 05/25/17 07:00 Hct 33.0 % (35.4-49) L 05/25/17 07:00 MCV 66.7 fl (80-96) L 05/25/17 07:00 MCH 21.3 pg (25.7-33.7) L 05/25/17 07:00 MCHC 32.0 g/dl (32.0-35.9) 05/25/17 07:00 RDW 17.6 % (11.9-15.9) H 05/25/17 07:00 Plt Count 211 K/MM3 (134-434) 05/25/17 07:00 MPV 9.0 fl (7.5-11.1) 05/25/17 07:00 Sodium 140 mmol/L (136-145) 05/25/17 07:00 Potassium 3.5 mmol/L (3.5-5.1) 05/25/17 07:00 Chloride 101 mmol/L (98-107) 05/25/17 07:00 Carbon Dioxide 29 mmol/L (21-32) 05/25/17 07:00 Anion Gap 10 (8-16) 05/25/17 07:00 BUN 12 mg/dL (7-18) D 05/25/17 07:00 Creatinine 0.8 mg/dL (0.7-1.3) 05/25/17 07:00 Creat Clearance w eGFR > 60 (>60) 05/25/17 07:00 Random Glucose 95 mg/dL (74-106) D 05/25/17 07:00 Calcium 8.1 mg/dL (8.5-10.1) L 05/25/17 07:00 Total Bilirubin 0.4 mg/dL (0.2-1.0) 05/25/17 07:00 AST 28 U/L (15-37) D 05/25/17 07:00 ALT 24 U/L (12-78) D 05/25/17 07:00 Alkaline Phosphatase 65 U/L (45-117) 05/25/17 07:00 Total Protein 6.6 g/dl (6.4-8.2) 05/25/17 07:00 Albumin 3.2 g/dl (3.4-5.0) L 05/25/17 07:00 Urine Color Ltyellow 05/25/17 08:30 Urine Appearance Clear 05/25/17 08:30 Urine pH 7.0 (5.0-8.0) 05/25/17 08:30 Ur Specific [place] 1.013 (1.001-1.035) 05/25/17 08:30 Urine Protein Negative (NEGATIVE) 05/25/17 08:30 Urine Glucose (UA) Negative (NEGATIVE) 05/25/17 08:30 Urine Ketones Negative (NEGATIVE) 05/25/17 08:30 Urine Blood Negative (NEGATIVE) 05/25/17 08:30 Urine Nitrite Negative (NEGATIVE) 05/25/17 08:30 Urine Bilirubin Negative (NEGATIVE) 05/25/17 08:30 Urine Urobilinogen 4.0 e.u/dl mg/dL (0.2-1.0) 05/25/17 08:30 Ur Leukocyte Esterase Negative (NEGATIVE) 05/25/17 08:30 RPR Titer Nonreactive (NONREACTIVE) 05/25/17 07:00 Assessment: 05/27/17 12:34 NAD Plan: CONTINUE DETOX
[2017-05-27] MEDS: THIAMINE HCL 100 MG TABLET (FP) PO SCH (22:11)
[2017-05-27] MEDS: chlordiazePOXIDE HCL 10 MG CAPSULE PO SCH (22:11)
[2017-05-27] MEDS: hydrOXYzine PAMOATE 50 MG CAPSULE (FP) PO PRN (22:11)
[2017-05-28] MEDS: chlordiazePOXIDE HCL 10 MG CAPSULE PO SCH (05:29)
[2017-05-28] MEDS: MENTHOL/PHENOL 1 EACH UD MM PRN (05:29)
[2017-05-28 06:22] VITALS: BP 120/78; PULSE 76; TEMP 97
--- NOTE | 2017-05-28 12:41 | DS ---
[facility] Detox Discharge Summary Admission Date: 05/24/17 Discharge Date: 05/28/17 - History Present History: Alcohol Dependence Additional Comments: DETOX COMPLETED. - Physical Exam Results Vital Signs: Vital Signs Temperature 97.0 F L 05/28/17 06:22 Pulse Rate 76 05/28/17 06:22 Respiratory Rate 19 05/28/17 06:22 Blood Pressure 120/78 05/28/17 06:22 O2 Sat by Pulse Oximetry (%) - Treatment Hospital Course: Detox Protocol Followed, Detoxed Safely, Responded well, Discharged Condition Good - Medication Discharge Medications: Ambulatory Orders Amlodipine Besylate [Norvasc -] 10 mg PO DAILY #30 tablet 04/01/17 - Diagnosis (1) Alcohol dependence with uncomplicated withdrawal Status: Acute (2) Arthritis of both knees Status: Chronic (3) Essential hypertension Status: Chronic - AMA Did Patient Leave Against Medical Advice: No
--- NOTE | 2017-05-28 12:42 | PN ---
BHS Progress Note (SOAP) Subjective: DETOX COMPLETED. Objective: 05/28/17 12:42 Vital Signs Temperature 97.0 F L 05/28/17 06:22 Pulse Rate 76 05/28/17 06:22 Respiratory Rate 19 05/28/17 06:22 Blood Pressure 120/78 05/28/17 06:22 O2 Sat by Pulse Oximetry (%) Laboratory Last Values WBC 2.4 K/mm3 (4.0-10.0) L D 05/25/17 07:00 RBC 4.96 M/mm3 (4.00-5.60) 05/25/17 07:00 Hgb 10.6 GM/dL (11.7-16.9) L D 05/25/17 07:00 Hct 33.0 % (35.4-49) L 05/25/17 07:00 MCV 66.7 fl (80-96) L 05/25/17 07:00 MCH 21.3 pg (25.7-33.7) L 05/25/17 07:00 MCHC 32.0 g/dl (32.0-35.9) 05/25/17 07:00 RDW 17.6 % (11.9-15.9) H 05/25/17 07:00 Plt Count 211 K/MM3 (134-434) 05/25/17 07:00 MPV 9.0 fl (7.5-11.1) 05/25/17 07:00 Sodium 140 mmol/L (136-145) 05/25/17 07:00 Potassium 3.5 mmol/L (3.5-5.1) 05/25/17 07:00 Chloride 101 mmol/L (98-107) 05/25/17 07:00 Carbon Dioxide 29 mmol/L (21-32) 05/25/17 07:00 Anion Gap 10 (8-16) 05/25/17 07:00 BUN 12 mg/dL (7-18) D 05/25/17 07:00 Creatinine 0.8 mg/dL (0.7-1.3) 05/25/17 07:00 Creat Clearance w eGFR > 60 (>60) 05/25/17 07:00 Random Glucose 95 mg/dL (74-106) D 05/25/17 07:00 Calcium 8.1 mg/dL (8.5-10.1) L 05/25/17 07:00 Total Bilirubin 0.4 mg/dL (0.2-1.0) 05/25/17 07:00 AST 28 U/L (15-37) D 05/25/17 07:00 ALT 24 U/L (12-78) D 05/25/17 07:00 Alkaline Phosphatase 65 U/L (45-117) 05/25/17 07:00 Total Protein 6.6 g/dl (6.4-8.2) 05/25/17 07:00 Albumin 3.2 g/dl (3.4-5.0) L 05/25/17 07:00 Urine Color Ltyellow 05/25/17 08:30 Urine Appearance Clear 05/25/17 08:30 Urine pH 7.0 (5.0-8.0) 05/25/17 08:30 Ur Specific [place] 1.013 (1.001-1.035) 05/25/17 08:30 Urine Protein Negative (NEGATIVE) 05/25/17 08:30 Urine Glucose (UA) Negative (NEGATIVE) 05/25/17 08:30 Urine Ketones Negative (NEGATIVE) 05/25/17 08:30 Urine Blood Negative (NEGATIVE) 05/25/17 08:30 Urine Nitrite Negative (NEGATIVE) 05/25/17 08:30 Urine Bilirubin Negative (NEGATIVE) 05/25/17 08:30 Urine Urobilinogen 4.0 e.u/dl mg/dL (0.2-1.0) 05/25/17 08:30 Ur Leukocyte Esterase Negative (NEGATIVE) 05/25/17 08:30 RPR Titer Nonreactive (NONREACTIVE) 05/25/17 07:00 Assessment: 05/28/17 12:42 DETOX PROCEEDED WELL Plan: PT D/C'D TODAY
== END 2017-05-28 09:25 | disposition home or self-care (01) | DRG 897 ==
LOC: YASAS 18:04 → Y3N 20:11
PROVIDERS: ADMIT Internal Medicine; ATTEND Internal Medicine
PROC: HZ2ZZZZ Detoxification Services for Substance Abuse Treatment (ICD-10-PCS; principal; 2017-05-24)
DX: F10.230 Alcohol dependence with withdrawal, uncomplicated (principal); F31.9 Bipolar disorder, unspecified; G47.00 Insomnia, unspecified; I10 Essential (primary) hypertension; M13.862 Other specified arthritis, left knee; M13.861 Other specified arthritis, right knee
CPT/HCPCS: 36415; 80053; 81003; 85027; 86593; 93005; 93010

== ENCOUNTER 2017-06-15 21:55 | Inpatient (IN) | payer MEDICARE, OTHER ==
[2017-06-15 23:47] VITALS: BMI 29.9
--- NOTE | 2017-06-16 00:57 | HP ---
CIWA Score - CIWA Score Nausea/Vomitin Muscle Tremors: 4-Moderate,w/Arms Extend Anxiety: 3 Agitation: 4-Moderately Restless Paroxysmal Sweats: 1-Minimal Palms Moist Orientation: 1-Uncertain about Date Tacttile Disturbances: 0-None Auditory Disturbances: 0-None Visual Disturbances: 0-None Headache: 2-Mild CIWA-Ar Total Score: 18 Admission ROS BHS - HPI Chief Complaint: Alcohol withdrawal symptoms Allergies/Adverse Reactions: Allergies Allergy/AdvReac Type Severity Reaction Status Date / Time Penicillins Allergy Severe Rash Verified 06/16/17 02:13 History of Present Illness: 56 years old male with a long history of alcohol dependence is seeking admission to detox. Patient has been in previous detox and reports insignificant period of sobriety. He has medical history of HTN, arthritis of both knees, and depression. Denies suicidal ideation at this time. Exam Limitations: No Limitations - Ebola screening Have you traveled outside of the country in the last 21 days: No Have you had contact with anyone from an Ebola affected area: No Have you been sick,other than usual withdrawal symptoms: No Do you have a fever: No - Review of Systems Constitutional: Chills, Malaise, Night Sweats, Changes in sleep EENT: reports: No Symptoms Reported Respiratory: reports: No Symptoms reported Cardiac: reports: No Symptoms Reported GI: reports: Nausea, Poor Fluid Intake : reports: No Symptoms Reported Musculoskeletal: reports: Back Pain Integumentary: reports: Dryness Neuro: reports: Tingling, Tremors Endocrine: reports: No Symptoms Reported Hematology: reports: No Symptoms Reported Psychiatric: reports: Agitated, Anxious Other Systems: Reviewed and Negative Patient History - Patient Medical History Hx Anemia: No Hx Asthma: No Hx Chronic Obstructive Pulmonary Disease (COPD): No Hx Cancer: No Hx Cardiac Disorders: No Hx Congestive Heart Failure: No Hx Hypertension: Yes (Amlodipine ) Hx Hypercholesterolemia: No Hx Pacemaker: No HX Cerebrovascular Accident: No Hx Seizures: No Hx Dementia: No Hx Diabetes: No Hx Gastrointestinal Disorders: No Hx Liver Disease: No Hx Genitourinary Disorders: No Hx Sexually Transmitted Disorders: No Hx Renal Disease (ESRD): No Hx Thyroid Disease: No Hx Human Immunodeficiency Virus (HIV): No (Negative 2017) Hx Hepatitis C: No (Negative 2017) Hx Depression: Yes (Not on medication) Hx Suicide Attempt: No (Denies suicidal ideation at this time) Hx Bipolar Disorder: No Hx Schizophrenia: No Other Medical History: arthritis of both knees- Not on medication - Patient Surgical History Past Surgical History: No Hx Neurologic Surgery: No Hx Cataract Extraction: No Hx Cardiac Surgery: No Hx Lung Surgery: No Hx Abdominal Surgery: No Hx Appendectomy: No Hx Cholecystectomy: No Hx Genitourinary Surgery: No Hx Orthopedic Surgery: No Anesthesia Reaction: No - PPD History Previous Implant?: Yes Documented Results: Negative w/proof Implanted On Prior [facility] Admission?: Yes Date: 03/30/17 Results: 0 mm PPD to be Administered?: No - Reproductive History Patient is a Female of Child Bearing Age (11 -55 yrs old): No (Male) - Smoking Cessation Smoking history: Former smoker Have you smoked in the past 12 months: No Aproximately how many cigarettes per day: 2 If you are a former smoker, when did you quit?: 10 YEARS Hx Chewing Tobacco Use: No Initiated information on smoking cessation: No - Substance & Tx. History Hx Alcohol Use: Yes Hx Substance Use: Yes Substance Use Type: Cocaine Hx Substance Use Treatment: Yes ([facility]) - Substances Abused Alcohol Route: Smoking Frequency: Daily Amount used: VODKA - 1 QUART, BEER- 4 x 16 oz. CAN Age of first use: 16 Date of Last Use: 06/15/17 Cocaine Route: Inhalation Frequency: Daily Amount used: $5 Age of first use: 16 Date of Last Use: 06/12/17 Family Disease History - Family Disease History Family Disease History: Diabetes: Mother Admission Physical Exam [facility] - Vital Signs Vital Signs: Vital Signs - 24 hr 06/15/17 23:44 Temperature 97.7 F Pulse Rate 106 H Respiratory 18 Rate Blood Pressure 137/60 - Physical General Appearance: Yes: Moderate Distress, Tremorous, Irritable, Sweating HEENTM: Yes: EOMI, Normal ENT Inspection, Normocephalic, Normal Voice, MARYSE Respiratory: Yes: Lungs Clear, Normal Breath Sounds, No Respiratory Distress Neck: Yes: Supple Breast: Yes: Breast Exam Deferred Cardiology: Yes: Tachycardia Abdominal: Yes: Normal Bowel Sounds, Soft Genitourinary: Yes: Within Normal Limits Back: Yes: Normal Inspection Musculoskeletal: Yes: Back pain Extremities: Yes: Tremors Neurological: Yes: Alert, Normal Mood/Affect Integumentary: Yes: Warm Lymphatic: Yes: Within Normal Limits - Diagnostic (1) Alcohol dependence with uncomplicated withdrawal Current Visit: Yes Status: Chronic (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 (3) Arthritis of both knees Current Visit: Yes Status: Chronic (4) Depression Current Visit: Yes Status: Chronic Qualifiers: Depression Type: unspecified Qualified Code(s): F32.9 - Major depressive disorder, single episode, unspecified (5) Hypertension Current Visit: Yes Status: Chronic Cleared for Admission [facility] - Detox or Rehab [facility] Level of Care: Medically Managed Detox Regimen/Protocol: Librium [facility] Breath Alcohol Content Breath Alcohol Content: 0.189 Urine Drug Screen - Results Drug Screen Negative: No Urine Drug Screen Results: GABRIEL-Cocaine, BZO-Benzodiazepines
[2017-06-16] MEDS ORDERED: IBUPROFEN 400 MG TABLET (FP) PO PRN (01:07)
[2017-06-16] MEDS ORDERED: MAG HYDROX/AL HYDROX/SIMETH 30 ML UNIT-DOSE CUP PO PRN (01:07)
[2017-06-16] MEDS ORDERED: P-EPHED 60MG/TRIPROLIDI 2.5MG TABLET PO PRN (01:07)
[2017-06-16] MEDS ORDERED: LOPERAMIDE HCL 2 MG CAPSULE PO PRN (01:07)
[2017-06-16] MEDS ORDERED: MAGNESIUM CITRATE 300 ML BOTTLE PO PRN (01:07)
[2017-06-16] MEDS ORDERED: ACETAMINOPHEN 325 MG TABLET (FP) PO PRN (01:07)
[2017-06-16] MEDS ORDERED: MAGNESIUM HYDROX 2400MG/30ML ORAL SUSPENSION 30 ML CUP PO PRN (01:07)
[2017-06-16] MEDS ORDERED: chlordiazePOXIDE HCL 25 MG CAPSULE PO ONE (01:07)
[2017-06-16] MEDS ORDERED: guaiFENesin/D-METHORPHAN HB 10 ML UNIT-DOSE CUPS PO PRN (01:07)
[2017-06-16] MEDS ORDERED: MENTHOL/PHENOL 1 EACH UD MM PRN (01:07)
[2017-06-16] MEDS: chlordiazePOXIDE HCL 25 MG CAPSULE PO SCH ×4 (05:59→22:59)
[2017-06-16] MEDS ORDERED: PRENATAL VITAMINS W/ FOLIC ACID TABLET (FP) PO SCH (10:00)
[2017-06-16 10:23] LABS: URINE APPEARANCE CLEAR; URINE BILIRUBIN NEGATIVE (<2.0 mg/dL); URINE BLOOD 1+ (NEGATIVE); URINE COLOR LTYELLOW; URINE GLUCOSE (UA) NEGATIVE (NEGATIVE); URINE KETONE NEGATIVE (NEGATIVE); URINE LEUK ESTERASE NEGATIVE (NEGATIVE); URINE NITRITE NEGATIVE (NEGATIVE)
[2017-06-16 10:25] LABS: URINE PROTEIN 1+ (NEGATIVE)
[2017-06-16 10:26] LABS: EPI CELLS RARE /HPF (FEW); URINE BACTERIA RARE /hpf (NONE SEEN); URINE MUCUS RARE
[2017-06-16 10:41] LABS: HEMOGLOBIN 9.8 GM/dL (11.7-16.9); MCH 21.4 pg (25.7-33.7); MCHC 32.5 g/dl (32.0-35.9); MEAN CELL VOLUME 65.9 fl (80-96); MEAN PLT VOLUME 9.1 fl (7.5-11.1); PLATELET COUNT 207 K/MM3 (134-434); RBC 4.55 M/mm3 (4.00-5.60); WHITE BLOOD COUNT 3.2 K/mm3 (4.0-10.0)
--- NOTE | 2017-06-16 10:41 | EKG ---
Test Reason : Blood Pressure : / mmHG Vent. Rate : 094 BPM Atrial Rate : 094 BPM P-R Int : 180 ms QRS Dur : 094 ms QT Int : 356 ms P-R-T Axes : 061 -01 031 degrees QTc Int : 445 ms NORMAL SINUS RHYTHM NORMAL ECG WHEN COMPARED WITH ECG OF 24-MAY-2017 20:09, NO SIGNIFICANT CHANGE WAS FOUND Confirmed by MD Gaytan Daniel ([id number]) on 06/16/2017 10:40:54 AM Referred By: Confirmed By:Red Gaytan MD
--- NOTE | 2017-06-16 10:48 | PN ---
S CIWA - CIWA Score Nausea/Vomitin-No Nausea/No Vomiting Muscle Tremors: 3 Anxiety: 4-Mod. Anxious/Guarded Agitation: 3 Paroxysmal Sweats: 3 Orientation: 0-Oriented Tacttile Disturbances: 2-Mild Itch/Numbness/Burn Auditory Disturbances: 0-None Visual Disturbances: 0-None Headache: 3-Moderate CIWA-Ar Total Score: 18 BHS Progress Note (SOAP) Subjective: Tremors, Sweating, H/A, Body Aches. Objective: PATIENT A & O X 3, OBSERVED AMBULATING ON UNIT. NO ACUTE DISTRESS. 06/16/17 10:45 Vital Signs Temperature 97.4 F L 06/16/17 09:23 Pulse Rate 94 H 06/16/17 09:23 Respiratory Rate 20 06/16/17 09:23 Blood Pressure 157/73 06/16/17 09:23 O2 Sat by Pulse Oximetry (%) Laboratory Tests 06/16/17 08:40 Urine Color Ltyellow Urine Appearance Clear Urine pH 6.0 Ur Specific [place] 1.019 Urine Protein 1+ H Urine Glucose (UA) Negative Urine Ketones Negative Urine Blood 1+ H Urine Nitrite Negative Urine Bilirubin Negative Urine Urobilinogen 2.0 Ur Leukocyte Esterase Negative Urine WBC (Auto) 1 Urine RBC (Auto) 1 Ur Epithelial Cells Rare Urine Bacteria Rare Urine Mucus Rare UA RESULTS NOTED. OTHER ADMISSION LAB RESULTS PENDING. 06/16/17 10:46 Assessment: 06/16/17 10:47 WITHDRAWAL SYMPTOMS. Plan: CONTINUE DETOX. INCREASE DAILY PO FLUID INTAKE.
[2017-06-16 10:50] LABS: ALBUMIN 3.2 g/dl (3.4-5.0); ANION GAP 14 (8-16); BLOOD UREA NITROGEN 14 mg/dL (7-18); CALCIUM 7.9 mg/dL (8.5-10.1); CHLORIDE 103 mmol/L (98-107); CO2 26 mmol/L (21-32); CREATININE 0.9 mg/dL (0.7-1.3); GLUCOSE,RANDOM 92 mg/dL (74-106); POTASSIUM 3.6 mmol/L (3.5-5.1); SGOT/AST 34 U/L (15-37); SGPT/ALT 24 U/L (12-78); SODIUM 143 mmol/L (136-145)
[2017-06-16 10:52] LABS: ALK PHOS 66 U/L (45-117); BILIRUBIN,TOTAL 0.5 mg/dL (0.2-1.0); TOT PROT 6.5 g/dl (6.4-8.2)
[2017-06-16] MEDS ORDERED: amLODIPine BESYLATE 10 MG TABLET (FP) PO SCH (11:35)
--- NOTE | 2017-06-16 12:22 | CONSULT ---
[facility] Psychiatric Consult - Data Date of interview: 06/16/17 Admission source: [facility] Identifying data: Another admission to [facility] for this 56 y/o AA male seeking detox treatment on for alcohol and cocaine dependence.Patient is ,a father of two,domiciled and currently employed (part-time). Substance Abuse History: Confirmed by patient in this interview.Details in current [facility] report : Smoking history: Former smoker. Have you smoked in the past 12 months: No. Aproximately how many cigarettes per day: 2. If you are a former smoker, when did you quit?: 10 YEARS. Hx Chewing Tobacco Use: No. Initiated information on smoking cessation: No. - Substance & Tx. History. Hx Alcohol Use: Yes. Hx Substance Use: Yes. Substance Use Type: Cocaine. Hx Substance Use Treatment: Yes ([facility]). - Substances Abused. Alcohol. Route: Smoking. Frequency: Daily. Amount used: VODKA - 1 QUART, BEER- 4 x 16 oz. CAN. Age of first use: 16. Date of Last Use: 06/15/17. Cocaine. Route: Inhalation. Frequency: Daily. Amount used: $5. Age of first use: 16. Date of Last Use: 06/12/17 Medical History: Hypertension and arthritis of both knees. Psychiatric History: Patient confirms a history of 5-7 psychiatric hospitalizations ([facility] in [place] + [facility] + [facility] in [place], [place] and [facility] in [facility]) .Diagnosed with Bipolar disorder.No formal psychiatric OPD care.Mr Vu reports that he sees his primary care physician for scripts for zolpidem and xanax to addres insomnia and anxiety.Patient denies history of suicide attempts. Physical/Sexual Abuse/Trauma History: No history. Additional Comment: Urine Drug Screen Results: GABRIEL-Cocaine, BZO- Benzodiazepines.Noted. Mental Status Exam - Mental Status Exam Alert and Oriented to: Time, Place, Person Cognitive Function: Good Patient Appearance: Well Groomed Mood: Euthymic Affect: Normal Range Patient Behavior: Fatigued, Cooperative Speech Pattern: Clear, Appropriate Voice Loudness: Normal Thought Process: Goal Oriented Thought Disorder: Not Present Hallucinations: Denies Suicidal Ideation: Denies Homicidal Ideation: Denies Insight/Judgement: Poor Sleep: Poorly, Difficulty falling asleep (wants ambien) Appetite: Good Muscle strength/Tone: Normal Gait/Station: Normal Psychiatric Findings - Problem List ([place] 1, 2,3) (1) Alcohol dependence with uncomplicated withdrawal Current Visit: Yes Status: Acute (2) Cocaine dependence Current Visit: Yes Status: Acute (3) Bipolar disorder Current Visit: Yes Status: Chronic Comment: By history.No symptoms elicited.Patient is chronically non-adherent to OPD care and medications. (4) Insomnia Current Visit: Yes Status: Acute - Initial Treatment Plan Initial Treatment Plan: Psychoeducation.Sleep hygiene.Detoxification.Patient is advised to re-enlist in OPD treatment for wellness.Declines.Mr Vu consents only to ambien at bedtime + current detox protocol.Ordered : ambien 5 mg po hs prn.Patient is made aware of risk of parasomnias (sleep-walking).Observation.
[2017-06-16] MEDS: chlordiazePOXIDE HCL 25 MG CAPSULE PO PRN ×2 (13:12→20:57)
[2017-06-16] MEDS: FERROUS SO4 325 MG TABLET (FP) PO SCH (17:16)
[2017-06-16] MEDS ORDERED: THIAMINE HCL 100 MG TABLET (FP) PO SCH (22:00)
[2017-06-16] MEDS ORDERED: ZOLPIDEM TARTRATE 5 MG TABLET PO PRN (22:00)
[2017-06-16] MEDS ORDERED: MELATONIN 5 MG TABLETS PO PRN (22:00)
[2017-06-17] MEDS ORDERED: chlordiazePOXIDE HCL 25 MG CAPSULE PO SCH (05:00)
[2017-06-17 06:25] VITALS: BP 122/69; PULSE 73; TEMP 96.4
[2017-06-17] MEDS: FERROUS SO4 325 MG TABLET (FP) PO SCH (07:28)
--- NOTE | 2017-06-17 14:00 | PN ---
[facility] CIWA - CIWA Score Nausea/Vomitin-No Nausea/No Vomiting Muscle Tremors: 2 Anxiety: 4-Mod. Anxious/Guarded Agitation: 4-Moderately Restless Paroxysmal Sweats: 3 Orientation: 0-Oriented Tacttile Disturbances: 1-Very Mild Itch/Numbness Auditory Disturbances: 0-None Visual Disturbances: 1-Very Mild Sensitivity Headache: 0-None Present CIWA-Ar Total Score: 15 BHS Progress Note (SOAP) Subjective: Anxious, Body Aches, Tremors, Sweating. Objective: PATIENT A & O X 3, OBSERVED AMBULATING ON UNIT. NO ACUTE DISTRESS. 06/17/17 14:01 Vital Signs Temperature 96.4 F L 06/17/17 06:24 Pulse Rate 73 06/17/17 06:24 Respiratory Rate 18 06/17/17 06:24 Blood Pressure 122/69 06/17/17 06:24 O2 Sat by Pulse Oximetry (%) Laboratory Tests 06/16/17 06/16/17 06/16/17 07:00 07:00 08:40 WBC 3.2 L D RBC 4.55 Hgb 9.8 L Hct 30.0 L MCV 65.9 L MCH 21.4 L MCHC 32.5 RDW 20.0 H D Plt Count 207 MPV 9.1 Sodium 143 Potassium 3.6 Chloride 103 Carbon Dioxide 26 Anion Gap 14 BUN 14 Creatinine 0.9 Creat Clearance w eGFR > 60 Random Glucose 92 Calcium 7.9 L Total Bilirubin 0.5 D AST 34 D ALT 24 Alkaline Phosphatase 66 Total Protein 6.5 Albumin 3.2 L Urine Color Ltyellow Urine Appearance Clear Urine pH 6.0 Ur Specific [place] 1.019 Urine Protein 1+ H Urine Glucose (UA) Negative Urine Ketones Negative Urine Blood 1+ H Urine Nitrite Negative Urine Bilirubin Negative Urine Urobilinogen 2.0 Ur Leukocyte Esterase Negative Urine WBC (Auto) 1 Urine RBC (Auto) 1 Ur Epithelial Cells Rare Urine Bacteria Rare Urine Mucus Rare LABS NOTED. RPR RESULT PENDING. 06/17/17 14:03 Assessment: 06/17/17 14:02 WITHDRAWAL SYMPTOMS. ANEMIA. LEUKOPENIA. 06/17/17 14:03 Plan: CONTINUE DETOX.
--- NOTE | 2017-06-17 14:05 | DS ---
[facility] Detox Discharge Summary Admission Date: 06/15/17 Discharge Date: 06/17/17 - History Present History: Alcohol Dependence, Cocaine Dependence Additional Comments: PATIENT HAS PERSONAL ISSUE TO ATTEND TO AND DOES NOT WISH TO STAY TO COMPLETE DETOX REGIMEN. RISKS OF LEAVING DETOX UNIT AGAINST MEDICAL ADVICE AND PRIOR TO COMPLETION OF DETOX REGIMEN EXPLAINED TO PATIENT. PATIENT ADVISED TO GO IMMEDIATELY TO NEAREST ER SHOULD ANY INTOLERABLE DETOX SYMPTOMS DEVELOP AT ANY TIME. PATIENT LEFT DETOX UNIT IN STABLE MEDICAL CONDITION. Pertinent Past History: Depression, HTN, Bipolar Disorder, Insomnia, Schizophrenia, Arthritis of Both Knees. - Physical Exam Results Vital Signs: Vital Signs Temperature 96.4 F L 06/17/17 06:24 Pulse Rate 73 06/17/17 06:24 Respiratory Rate 18 06/17/17 06:24 Blood Pressure 122/69 06/17/17 06:24 O2 Sat by Pulse Oximetry (%) Pertinent Admission Physical Exam Findings: WITHDRAWAL SYMPTOMS. Laboratory Tests 06/16/17 06/16/17 06/16/17 07:00 07:00 08:40 WBC 3.2 L D RBC 4.55 Hgb 9.8 L Hct 30.0 L MCV 65.9 L MCH 21.4 L MCHC 32.5 RDW 20.0 H D Plt Count 207 MPV 9.1 Sodium 143 Potassium 3.6 Chloride 103 Carbon Dioxide 26 Anion Gap 14 BUN 14 Creatinine 0.9 Creat Clearance w eGFR > 60 Random Glucose 92 Calcium 7.9 L Total Bilirubin 0.5 D AST 34 D ALT 24 Alkaline Phosphatase 66 Total Protein 6.5 Albumin 3.2 L Urine Color Ltyellow Urine Appearance Clear Urine pH 6.0 Ur Specific [place] 1.019 Urine Protein 1+ H Urine Glucose (UA) Negative Urine Ketones Negative Urine Blood 1+ H Urine Nitrite Negative Urine Bilirubin Negative Urine Urobilinogen 2.0 Ur Leukocyte Esterase Negative Urine WBC (Auto) 1 Urine RBC (Auto) 1 Ur Epithelial Cells Rare Urine Bacteria Rare Urine Mucus Rare LABS NOTED. - Treatment Hospital Course: Detoxed Safely - Medication Discharge Medications: Ambulatory Orders Amlodipine Besylate [Norvasc -] 10 mg PO DAILY #30 tablet 04/01/17 - Diagnosis (1) Alcohol dependence with uncomplicated withdrawal Status: Acute (2) Alcohol-induced anxiety disorder Status: Chronic (3) Arthritis of both knees Status: Chronic (4) Depression Status: Chronic Qualifiers: Depression Type: unspecified Qualified Code(s): F32.9 - Major depressive disorder, single episode, unspecified (5) Hypertension Status: Chronic Qualifiers: Hypertension type: unspecified Qualified Code(s): I10 - Essential (primary ) hypertension (6) Cocaine dependence Status: Acute Qualifiers: Substance use status: uncomplicated Qualified Code(s): F14.20 - Cocaine dependence, uncomplicated (7) Insomnia Status: Acute Qualifiers: Insomnia type: unspecified Qualified Code(s): G47.00 - Insomnia, unspecified (8) Bipolar disorder Status: Chronic Qualifiers: Active/Remission status: remission status unspecified Qualified Code(s): F31.9 - Bipolar disorder, unspecified - AMA Did Patient Leave Against Medical Advice: Yes (PT HAS PERSONAL ISSUE AND DOES NOT WISH TO STAY TO COMPLETE DETOX REGIMEN.)
[2017-06-18] MEDS ORDERED: chlordiazePOXIDE 5 MG CAPSULE PO SCH (05:00)
[2017-06-19] MEDS ORDERED: chlordiazePOXIDE HCL 10 MG CAPSULE PO SCH (05:00)
== END 2017-06-17 09:05 | disposition left against medical advice (07) | DRG 894 ==
LOC: YASAS 21:55 → Y3N 23:53
PROVIDERS: ADMIT Internal Medicine; ATTEND Internal Medicine
PROC: HZ2ZZZZ Detoxification Services for Substance Abuse Treatment (ICD-10-PCS; principal; 2017-06-15)
DX: F10.230 Alcohol dependence with withdrawal, uncomplicated (principal); F14.20 Cocaine dependence, uncomplicated; F31.9 Bipolar disorder, unspecified; F20.9 Schizophrenia, unspecified; F10.982 Alcohol use, unspecified with alcohol-induced sleep disorder; F10.980 Alcohol use, unspecified with alcohol-induced anxiety disorder; M13.862 Other specified arthritis, left knee; M13.861 Other specified arthritis, right knee
CPT/HCPCS: 36415; 80053; 81003; 81015; 85027; 86593; 93005; 93010

== ENCOUNTER 2017-07-21 11:34 | Inpatient (IN) | payer OTHER ==
[2017-07-21 13:23] VITALS: BMI 31.2
--- NOTE | 2017-07-21 14:58 | HP ---
CIWA Score - CIWA Score Nausea/Vomitin-No Nausea/No Vomiting Muscle Tremors: 4-Moderate,w/Arms Extend Anxiety: 4-Mod. Anxious/Guarded Agitation: 4-Moderately Restless Paroxysmal Sweats: 1-Minimal Palms Moist Orientation: 0-Oriented Tacttile Disturbances: 0-None Auditory Disturbances: 0-None Visual Disturbances: 0-None Headache: 0-None Present CIWA-Ar Total Score: 13 Admission ROS BHS - HPI Chief Complaint: ALCOHOL WITHDRAWAL SX. Allergies/Adverse Reactions: Allergies Allergy/AdvReac Type Severity Reaction Status Date / Time Penicillins Allergy Severe Rash Verified 07/21/17 13:59 History of Present Illness: 57 Y/O AA/MALE WITH A HX OF ALCOHOL DEPENDENCE SEEKING DETOX [place]. Exam Limitations: No Limitations - Ebola screening Have you traveled outside of the country in the last 21 days: No Have you had contact with anyone from an Ebola affected area: No Have you been sick,other than usual withdrawal symptoms: No Do you have a fever: No - Review of Systems Constitutional: Chills, Night Sweats, Changes in sleep EENT: reports: Blurred Vision (WEARS GLASSES), Dental Problems (UPPER/LOWER PARTIAL DENTURES) Respiratory: reports: Shortness of Breath (HX ASTHMA/BRONCHITIS-MDI), Wheezing Cardiac: reports: No Symptoms Reported GI: reports: Poor Fluid Intake : reports: No Symptoms Reported Musculoskeletal: reports: Back Pain, Joint Pain, Muscle Pain Integumentary: reports: No Symptoms Reported Neuro: reports: Numbness, Tingling (HX NUEROPATHY FINGERS AND TOES), Tremors Endocrine: reports: No Symptoms Reported Hematology: reports: No Symptoms Reported Psychiatric: reports: Anxious (ON XANAX FOR ANXIETY AND AMBIEN FOR SLEEP.), Depressed Other Systems: Reviewed and Negative Patient History - Patient Medical History Hx Anemia: No Hx Asthma: Yes (NOT CURRENTLY ON MEDICATION) Hx Chronic Obstructive Pulmonary Disease (COPD): No Hx Cancer: No Hx Cardiac Disorders: No Hx Congestive Heart Failure: No Hx Hypertension: Yes (Amlodipine ) Hx Hypercholesterolemia: No Hx Pacemaker: No HX Cerebrovascular Accident: No Hx Seizures: No Hx Dementia: No Hx Diabetes: No Hx Gastrointestinal Disorders: No Hx Liver Disease: No Hx Genitourinary Disorders: No Hx Sexually Transmitted Disorders: No Hx Renal Disease (ESRD): No Hx Thyroid Disease: No Hx Human Immunodeficiency Virus (HIV): No (Negative 2017) Hx Hepatitis C: No (Negative 2017) Hx Depression: No (Not on medication) Hx Suicide Attempt: No (Denies suicidal ideation at this time) Hx Bipolar Disorder: No Hx Schizophrenia: No Other Medical History: ANXIETY DISORDER-- TAKES RX XANAX - Patient Surgical History Past Surgical History: No Hx Neurologic Surgery: No Hx Cataract Extraction: No Hx Cardiac Surgery: No Hx Lung Surgery: No Hx Breast Surgery: No Hx Breast Biopsy: No Hx Abdominal Surgery: No Hx Appendectomy: No Hx Cholecystectomy: No Hx Genitourinary Surgery: No Hx Orthopedic Surgery: No Anesthesia Reaction: No - PPD History Previous Implant?: Yes Documented Results: Negative w/proof Implanted On Prior [facility] Admission?: Yes Date: 03/30/17 Results: negative PPD to be Administered?: No - Reproductive History Patient is a Female of Child Bearing Age (11 -55 yrs old): No (MALE) - Smoking Cessation Smoking history: Current some day smoker Have you smoked in the past 12 months: Yes Aproximately how many cigarettes per day: 2 Hx Chewing Tobacco Use: No Initiated information on smoking cessation: Yes 'Breaking Loose' booklet given: 07/21/17 - Substance & Tx. History Hx Alcohol Use: Yes (VODKA) Hx Substance Use: No (DENIES) Substance Use Type: Alcohol Hx Substance Use Treatment: Yes (LAST TX AT [facility]) - Substances Abused Alcohol Route: Oral Frequency: Daily Amount used: 1 QUART A DAY VODKA Age of first use: 16 Date of Last Use: 07/21/17 Family Disease History - Family Disease History Family Disease History: Diabetes: Mother Admission Physical Exam [facility] - Vital Signs Vital Signs: Vital Signs - 24 hr 07/21/17 13:21 Temperature 98.1 F Pulse Rate 94 H Respiratory 20 Rate Blood Pressure 158/86 - Physical General Appearance: Yes: Moderate Distress, Irritable, Anxious HEENTM: Yes: EOMI, Normocephalic, MARYSE, Pharynx Normal Respiratory: Yes: Chest Non-Tender, Lungs Clear, Normal Breath Sounds, No Respiratory Distress Neck: Yes: No masses,lesions,Nodules, Supple, Trachea in good position Breast: Yes: Breast Exam Deferred Cardiology: Yes: Regular Rhythm, Regular Rate, S1, S2 Abdominal: Yes: Normal Bowel Sounds, Non Tender, Soft Genitourinary: Yes: Other (N/C) Back: Yes: Within Normal Limits Musculoskeletal: Yes: full range of Motion, Gait Steady Extremities: Yes: Normal Range of Motion, Non-Tender 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 NML intact, Fully Oriented, Alert, Motor Strength 5/5 Integumentary: Yes: Dry, Warm Lymphatic: Yes: Within Normal Limits - Diagnostic (1) Alcohol dependence with uncomplicated withdrawal Current Visit: Yes Status: Acute (2) Arthritis of both knees Current Visit: Yes Status: Chronic (3) Essential hypertension Current Visit: Yes Status: Chronic (4) History of anxiety disorder Current Visit: Yes Status: Chronic (5) Asthma Current Visit: Yes Status: Acute Qualifiers: Asthma severity: mild Asthma persistence: unspecified Asthma complication type: uncomplicated Qualified Code(s): J45.909 - Unspecified asthma, uncomplicated Cleared for Admission [facility] - Detox or Rehab [facility] Level of Care: Medically Managed Detox Regimen/Protocol: Librium [facility] Breath Alcohol Content Breath Alcohol Content: 0.015 Urine Drug Screen - Results Drug Screen Negative: No Urine Drug Screen Results: BZO-Benzodiazepines
[2017-07-21] MEDS ORDERED: LOPERAMIDE HCL 2 MG CAPSULE PO PRN (15:16)
[2017-07-21] MEDS ORDERED: P-EPHED 60MG/TRIPROLIDI 2.5MG TABLET PO PRN (15:16)
[2017-07-21] MEDS ORDERED: MAG HYDROX/AL HYDROX/SIMETH 30 ML UNIT-DOSE CUP PO PRN (15:16)
[2017-07-21] MEDS ORDERED: MENTHOL/PHENOL 1 EACH UD MM PRN (15:16)
[2017-07-21] MEDS ORDERED: MAGNESIUM HYDROX 2400MG/30ML ORAL SUSPENSION 30 ML CUP PO PRN (15:16)
[2017-07-21] MEDS ORDERED: ACETAMINOPHEN 325 MG TABLET (FP) PO PRN (15:16)
[2017-07-21] MEDS ORDERED: IBUPROFEN 400 MG TABLET (FP) PO PRN (15:16)
[2017-07-21] MEDS ORDERED: guaiFENesin/D-METHORPHAN HB 10 ML UNIT-DOSE CUPS PO PRN (15:16)
[2017-07-21] MEDS ORDERED: MAGNESIUM CITRATE 300 ML BOTTLE PO PRN (15:16)
[2017-07-21] MEDS ORDERED: hydrOXYzine PAMOATE 50 MG CAPSULE (FP) PO PRN (15:16)
[2017-07-21] MEDS ORDERED: ALBUTEROL SO4 18 GM HFA INHALER IH PRN (15:23)
[2017-07-21] MEDS ORDERED: chlordiazePOXIDE HCL 25 MG CAPSULE PO ONE (16:00)
[2017-07-21] MEDS: chlordiazePOXIDE HCL 25 MG CAPSULE PO SCH ×2 (16:50→22:09)
[2017-07-21] MEDS: amLODIPine BESYLATE 10 MG TABLET (FP) PO SCH (16:50)
[2017-07-21] MEDS ORDERED: MELATONIN 5 MG TABLETS PO PRN (22:00)
[2017-07-21] MEDS: THIAMINE HCL 100 MG TABLET (FP) PO SCH (22:09)
[2017-07-21 23:23] LABS: URINE APPEARANCE CLEAR; URINE BILIRUBIN NEGATIVE (<2.0 mg/dL); URINE COLOR LTYELLOW; URINE GLUCOSE (UA) NEGATIVE (NEGATIVE); URINE KETONE NEGATIVE (NEGATIVE); URINE LEUK ESTERASE NEGATIVE (NEGATIVE); URINE NITRITE NEGATIVE (NEGATIVE); URINE PROTEIN NEGATIVE (NEGATIVE); URINE UROBILINOGEN NEGATIVE mg/dL (0.2-1.0)
[2017-07-22] MEDS: chlordiazePOXIDE HCL 25 MG CAPSULE PO SCH ×4 (05:11→22:23)
[2017-07-22] MEDS: PRENATAL VITAMINS W/ FOLIC ACID TABLET (FP) PO SCH (10:04)
[2017-07-22] MEDS: amLODIPine BESYLATE 10 MG TABLET (FP) PO SCH (10:04)
[2017-07-22 10:23] LABS: CHLORIDE 103 mmol/L (98-107); POTASSIUM 4.2 mmol/L (3.5-5.1); SODIUM 138 mmol/L (136-145)
--- NOTE | 2017-07-22 10:48 | PN ---
S CIWA - CIWA Score Nausea/Vomitin-Mild Nausea/No Vomiting Muscle Tremors: 4-Moderate,w/Arms Extend Anxiety: 3 Agitation: 2 Paroxysmal Sweats: 1-Minimal Palms Moist Orientation: 0-Oriented Tacttile Disturbances: 1-Very Mild Itch/Numbness Auditory Disturbances: 0-None Visual Disturbances: 0-None Headache: 0-None Present CIWA-Ar Total Score: 12 BHS Progress Note (SOAP) Subjective: sweat tremor trouble sleep at night anxiety restlessness Objective: 07/22/17 10:47 Vital Signs Temperature 97.9 F 07/22/17 10:17 Pulse Rate 91 H 07/22/17 10:17 Respiratory Rate 20 07/22/17 10:17 Blood Pressure 129/79 07/22/17 10:17 O2 Sat by Pulse Oximetry (%) Laboratory Last Values Urine Color Ltyellow 07/21/17 23:03 Urine Appearance Clear 07/21/17 23:03 Urine pH 6.0 (5.0-8.0) 07/21/17 23:03 Ur Specific [place] 1.014 (1.001-1.035) 07/21/17 23:03 Urine Protein Negative (NEGATIVE) 07/21/17 23:03 Urine Glucose (UA) Negative (NEGATIVE) 07/21/17 23:03 Urine Ketones Negative (NEGATIVE) 07/21/17 23:03 Urine Blood Negative (NEGATIVE) 07/21/17 23:03 Urine Nitrite Negative (NEGATIVE) 07/21/17 23:03 Urine Bilirubin Negative (<2.0 mg/dL) 07/21/17 23:03 Urine Urobilinogen Negative mg/dL (0.2-1.0) 07/21/17 23:03 Ur Leukocyte Esterase Negative (NEGATIVE) 07/21/17 23:03 lab noted Assessment: 07/22/17 10:47 withdrawal sx Plan: continue detox
[2017-07-22 10:51] LABS: ALBUMIN 3.6 g/dl (3.4-5.0); ALK PHOS 67 U/L (45-117); ANION GAP 9 (8-16); BILIRUBIN,TOTAL 1.1 mg/dL (0.2-1.0); BLOOD UREA NITROGEN 10 mg/dL (7-18); CALCIUM 8.3 mg/dL (8.5-10.1); CO2 26 mmol/L (21-32); GLUCOSE,RANDOM 90 mg/dL (74-106); SGOT/AST 34 U/L (15-37); SGPT/ALT 31 U/L (12-78); TOT PROT 7.4 g/dl (6.4-8.2)
[2017-07-22 11:00] LABS: HEMATOCRIT 35.3 % (35.4-49); HEMOGLOBIN 11.2 GM/dL (11.7-16.9); MCH 20.8 pg (25.7-33.7); MCHC 31.6 g/dl (32.0-35.9); MEAN CELL VOLUME 65.9 fl (80-96); MEAN PLT VOLUME 9.3 fl (7.5-11.1); PLATELET COUNT 222 K/MM3 (134-434); RBC 5.36 M/mm3 (4.00-5.60); RDW 21.6 % (11.9-15.9); WHITE BLOOD COUNT 3.5 K/mm3 (4.0-10.0)
[2017-07-22 11:40] LABS: ANISOCYTOSIS 2+
--- NOTE | 2017-07-22 12:03 | EKG ---
Test Reason : Blood Pressure : / mmHG Vent. Rate : 067 BPM Atrial Rate : 067 BPM P-R Int : 174 ms QRS Dur : 100 ms QT Int : 426 ms P-R-T Axes : 061 001 019 degrees QTc Int : 450 ms NORMAL SINUS RHYTHM POSSIBLE LEFT ATRIAL ENLARGEMENT BORDERLINE ECG WHEN COMPARED WITH ECG OF 16-JUN-2017 02:30, NO SIGNIFICANT CHANGE WAS FOUND Confirmed by TODD WILSON MD ([id number]) on 07/22/2017 12:03:21 PM Referred By: Confirmed By:TODD WILSON MD
[2017-07-22 12:50] LABS: ADD RBC MORPHOLOGY YES
--- NOTE | 2017-07-22 15:54 | CONSULT ---
[facility] Psychiatric Consult - Data Date of interview: 07/22/17 Admission source: [facility] Identifying data: This is one of several admissions to [facility] for this 57 y/ o AA male seeking detox treatment on for alcohol and cocaine dependence.Patient is ,a father of two,domiciled and currently employed (part-time). Substance Abuse History: Confirmed by patient in this interview.Smoking history : Current some day smoker. Have you smoked in the past 12 months: Yes. Aproximately how many cigarettes per day: 2. Hx Chewing Tobacco Use: No. Initiated information on smoking cessation: Yes. 'Breaking Loose' booklet given : 07/21/17. - Substance & Tx. History. Hx Alcohol Use: Yes (VODKA). Hx Substance Use: No (DENIES). Substance Use Type: Alcohol. Hx Substance Use Treatment: Yes (LAST TX AT [facility]). - Substances Abused. Alcohol. Route: Oral. Frequency: Daily. Amount used: 1 QUART A DAY VODKA. Age of first use: 16. Date of Last Use: 07/21/17 Medical History: Hypertension and arthritis of both knees. Psychiatric History: History of multiple psychiatric hospitalizations ([facility] in [place] + [facility] + [facility] in [place], [place] and [facility] in [facility]).Diagnosed with Bipolar disorder.Patient is still without contact with a psychiatric OPD care provider.Mr Vu states that he prefers to rely on his primary care physician for scripts for zolpidem and xanax.Patient denies history of suicide attempts. Physical/Sexual Abuse/Trauma History: Patient denies. Additional Comment: Urine Drug Screen Results: BZO-Benzodiazepines.Noted. Mental Status Exam - Mental Status Exam Alert and Oriented to: Time, Place, Person Cognitive Function: Good Patient Appearance: Well Groomed Mood: Hopeful, Euthymic Affect: Appropriate, Normal Range Patient Behavior: Appropriate, Cooperative Speech Pattern: Clear Voice Loudness: Normal Thought Process: Intact, Goal Oriented Thought Disorder: Not Present Hallucinations: Denies Suicidal Ideation: Denies Homicidal Ideation: Denies Insight/Judgement: Poor Sleep: Poorly, Difficulty falling asleep Appetite: Good Muscle strength/Tone: Normal Gait/Station: Normal Psychiatric Findings - Problem List ([place] 1, 2,3) (1) Alcohol dependence with uncomplicated withdrawal Current Visit: Yes Status: Acute (2) Bipolar disorder Current Visit: Yes Status: Chronic Qualifiers: Active/Remission status: remission status unspecified Qualified Code(s): F31.9 - Bipolar disorder, unspecified Comment: By history.No symptoms elicited.Patient is chronically non-adherent to OPD care and medications. (3) Insomnia Current Visit: Yes Status: Acute Qualifiers: Insomnia type: unspecified Qualified Code(s): G47.00 - Insomnia, unspecified - Initial Treatment Plan Initial Treatment Plan: Psychoeducation.Sleep hygiene.Detoxification in progress.Patient is advised to consider coverage with mood stabilzers.He declines.Requests ambien for his insomnia.ordered : ambien 10 mg po hs prn.Patient made aware of potential for parasomnas.Agrees [facility] careplan.Observation.
[2017-07-22] MEDS: THIAMINE HCL 100 MG TABLET (FP) PO SCH (22:23)
[2017-07-22] MEDS: ZOLPIDEM TARTRATE 10 MG TABLET (PARK CARE ONLY) PO PRN (22:23)
[2017-07-23] MEDS: chlordiazePOXIDE HCL 25 MG CAPSULE PO PRN ×2 (01:24→15:33)
[2017-07-23] MEDS: chlordiazePOXIDE HCL 25 MG CAPSULE PO SCH ×2 (05:31→11:08)
--- NOTE | 2017-07-23 09:34 | PN ---
[facility] CIWA - CIWA Score Nausea/Vomitin-Mild Nausea/No Vomiting Muscle Tremors: 3 Anxiety: 2 Agitation: 3 Paroxysmal Sweats: 1-Minimal Palms Moist Orientation: 0-Oriented Tacttile Disturbances: 1-Very Mild Itch/Numbness Auditory Disturbances: 0-None Visual Disturbances: 0-None Headache: 0-None Present CIWA-Ar Total Score: 11 BHS Progress Note (SOAP) Subjective: sweat tremor anxiety restlessness trouble sleeping a night Objective: 07/23/17 09:32 Vital Signs Temperature 97.9 F 07/23/17 06:38 Pulse Rate 69 07/23/17 06:38 Respiratory Rate 18 07/23/17 06:38 Blood Pressure 125/72 07/23/17 06:38 O2 Sat by Pulse Oximetry (%) Laboratory Last Values WBC 3.5 K/mm3 (4.0-10.0) L 07/22/17 06:00 RBC 5.36 M/mm3 (4.00-5.60) 07/22/17 06:00 Hgb 11.2 GM/dL (11.7-16.9) L D 07/22/17 06:00 Hct 35.3 % (35.4-49) L D 07/22/17 06:00 MCV 65.9 fl (80-96) L 07/22/17 06:00 MCH 20.8 pg (25.7-33.7) L 07/22/17 06:00 MCHC 31.6 g/dl (32.0-35.9) L 07/22/17 06:00 RDW 21.6 % (11.9-15.9) H 07/22/17 06:00 Plt Count 222 K/MM3 (134-434) 07/22/17 06:00 MPV 9.3 fl (7.5-11.1) 07/22/17 06:00 Hypochromia 3+ 07/22/17 06:00 Platelet Comment Few large plts 07/22/17 06:00 Anisocytosis 2+ 07/22/17 06:00 Microcytosis 1+ 07/22/17 06:00 Robb Cells 1+ 07/22/17 06:00 Sodium 138 mmol/L (136-145) 07/22/17 06:00 Potassium 4.2 mmol/L (3.5-5.1) 07/22/17 06:00 Chloride 103 mmol/L (98-107) 07/22/17 06:00 Carbon Dioxide 26 mmol/L (21-32) 07/22/17 06:00 Anion Gap 9 (8-16) 07/22/17 06:00 BUN 10 mg/dL (7-18) D 07/22/17 06:00 Creatinine 1.0 mg/dL (0.7-1.3) 07/22/17 06:00 Creat Clearance w eGFR > 60 (>60) 07/22/17 06:00 Random Glucose 90 mg/dL (74-106) 07/22/17 06:00 Calcium 8.3 mg/dL (8.5-10.1) L 07/22/17 06:00 Total Bilirubin 1.1 mg/dL (0.2-1.0) H D 07/22/17 06:00 AST 34 U/L (15-37) 07/22/17 06:00 ALT 31 U/L (12-78) D 07/22/17 06:00 Alkaline Phosphatase 67 U/L (45-117) 07/22/17 06:00 Total Protein 7.4 g/dl (6.4-8.2) 07/22/17 06:00 Albumin 3.6 g/dl (3.4-5.0) 07/22/17 06:00 Urine Color Ltyellow 07/21/17 23:03 Urine Appearance Clear 07/21/17 23:03 Urine pH 6.0 (5.0-8.0) 07/21/17 23:03 Ur Specific [place] 1.014 (1.001-1.035) 07/21/17 23:03 Urine Protein Negative (NEGATIVE) 07/21/17 23:03 Urine Glucose (UA) Negative (NEGATIVE) 07/21/17 23:03 Urine Ketones Negative (NEGATIVE) 07/21/17 23:03 Urine Blood Negative (NEGATIVE) 07/21/17 23:03 Urine Nitrite Negative (NEGATIVE) 07/21/17 23:03 Urine Bilirubin Negative (<2.0 mg/dL) 07/21/17 23:03 Urine Urobilinogen Negative mg/dL (0.2-1.0) 07/21/17 23:03 Ur Leukocyte Esterase Negative (NEGATIVE) 07/21/17 23:03 RPR Titer Nonreactive (NONREACTIVE) 07/22/17 06:00 lab noted Assessment: 07/23/17 09:33 withdrawal sx Plan: continue detox
[2017-07-23] MEDS: amLODIPine BESYLATE 10 MG TABLET (FP) PO SCH (11:08)
[2017-07-23] MEDS: PRENATAL VITAMINS W/ FOLIC ACID TABLET (FP) PO SCH (11:08)
[2017-07-23] MEDS: chlordiazePOXIDE 5 MG CAPSULE PO SCH ×2 (17:22→22:20)
[2017-07-23] MEDS: THIAMINE HCL 100 MG TABLET (FP) PO SCH (22:20)
[2017-07-23] MEDS: ZOLPIDEM TARTRATE 10 MG TABLET (PARK CARE ONLY) PO PRN (22:20)
[2017-07-24] MEDS: chlordiazePOXIDE 5 MG CAPSULE PO SCH ×2 (05:21→10:26)
[2017-07-24] MEDS: PRENATAL VITAMINS W/ FOLIC ACID TABLET (FP) PO SCH (10:26)
[2017-07-24] MEDS: amLODIPine BESYLATE 10 MG TABLET (FP) PO SCH (10:26)
--- NOTE | 2017-07-24 12:33 | PN ---
S Progress Note (SOAP) Subjective: feeling better no sweat no tremor social in day room with peers slept better at night Objective: 07/24/17 12:32 Vital Signs Temperature 98.1 F 07/24/17 09:49 Pulse Rate 94 H 07/24/17 09:49 Respiratory Rate 18 07/24/17 09:49 Blood Pressure 145/88 07/24/17 09:49 O2 Sat by Pulse Oximetry (%) Laboratory Last Values WBC 3.5 K/mm3 (4.0-10.0) L 07/22/17 06:00 RBC 5.36 M/mm3 (4.00-5.60) 07/22/17 06:00 Hgb 11.2 GM/dL (11.7-16.9) L D 07/22/17 06:00 Hct 35.3 % (35.4-49) L D 07/22/17 06:00 MCV 65.9 fl (80-96) L 07/22/17 06:00 MCH 20.8 pg (25.7-33.7) L 07/22/17 06:00 MCHC 31.6 g/dl (32.0-35.9) L 07/22/17 06:00 RDW 21.6 % (11.9-15.9) H 07/22/17 06:00 Plt Count 222 K/MM3 (134-434) 07/22/17 06:00 MPV 9.3 fl (7.5-11.1) 07/22/17 06:00 Hypochromia 3+ 07/22/17 06:00 Platelet Comment Few large plts 07/22/17 06:00 Anisocytosis 2+ 07/22/17 06:00 Microcytosis 1+ 07/22/17 06:00 Robb Cells 1+ 07/22/17 06:00 Sodium 138 mmol/L (136-145) 07/22/17 06:00 Potassium 4.2 mmol/L (3.5-5.1) 07/22/17 06:00 Chloride 103 mmol/L (98-107) 07/22/17 06:00 Carbon Dioxide 26 mmol/L (21-32) 07/22/17 06:00 Anion Gap 9 (8-16) 07/22/17 06:00 BUN 10 mg/dL (7-18) D 07/22/17 06:00 Creatinine 1.0 mg/dL (0.7-1.3) 07/22/17 06:00 Creat Clearance w eGFR > 60 (>60) 07/22/17 06:00 Random Glucose 90 mg/dL (74-106) 07/22/17 06:00 Calcium 8.3 mg/dL (8.5-10.1) L 07/22/17 06:00 Total Bilirubin 1.1 mg/dL (0.2-1.0) H D 07/22/17 06:00 AST 34 U/L (15-37) 07/22/17 06:00 ALT 31 U/L (12-78) D 07/22/17 06:00 Alkaline Phosphatase 67 U/L (45-117) 07/22/17 06:00 Total Protein 7.4 g/dl (6.4-8.2) 07/22/17 06:00 Albumin 3.6 g/dl (3.4-5.0) 07/22/17 06:00 Urine Color Ltyellow 07/21/17 23:03 Urine Appearance Clear 07/21/17 23:03 Urine pH 6.0 (5.0-8.0) 07/21/17 23:03 Ur Specific [place] 1.014 (1.001-1.035) 07/21/17 23:03 Urine Protein Negative (NEGATIVE) 07/21/17 23:03 Urine Glucose (UA) Negative (NEGATIVE) 07/21/17 23:03 Urine Ketones Negative (NEGATIVE) 07/21/17 23:03 Urine Blood Negative (NEGATIVE) 07/21/17 23:03 Urine Nitrite Negative (NEGATIVE) 07/21/17 23:03 Urine Bilirubin Negative (<2.0 mg/dL) 07/21/17 23:03 Urine Urobilinogen Negative mg/dL (0.2-1.0) 07/21/17 23:03 Ur Leukocyte Esterase Negative (NEGATIVE) 07/21/17 23:03 RPR Titer Nonreactive (NONREACTIVE) 07/22/17 06:00 lab noted Assessment: 07/24/17 12:32 mild withdrawal sx 07/24/17 12:33 hypertension Plan: medically supervised [facility] health teaching on hypertension and medication adherence and dietary regimen
[2017-07-24] MEDS: chlordiazePOXIDE HCL 10 MG CAPSULE PO SCH ×2 (17:50→22:24)
[2017-07-24] MEDS: THIAMINE HCL 100 MG TABLET (FP) PO SCH (22:24)
[2017-07-24] MEDS: ZOLPIDEM TARTRATE 10 MG TABLET (PARK CARE ONLY) PO PRN (22:24)
[2017-07-24 22:59] VITALS: TEMP 97.7
[2017-07-25] MEDS: chlordiazePOXIDE HCL 10 MG CAPSULE PO SCH (05:35)
[2017-07-25 06:45] VITALS: BP 143/91; PULSE 72
== END 2017-07-25 07:04 | disposition home or self-care (01) | DRG 897 ==
LOC: YASAS 11:34 → Y6N 15:35
PROVIDERS: ADMIT Surgery; ATTEND Surgery
PROC: HZ2ZZZZ Detoxification Services for Substance Abuse Treatment (ICD-10-PCS; principal; 2017-07-21)
DX: F10.230 Alcohol dependence with withdrawal, uncomplicated (principal); F31.9 Bipolar disorder, unspecified; F41.9 Anxiety disorder, unspecified; G47.00 Insomnia, unspecified; I10 Essential (primary) hypertension; J45.909 Unspecified asthma, uncomplicated
CPT/HCPCS: 36415; 80053; 81003; 85027; 86593; 93005; 93010

== ENCOUNTER 2017-11-14 12:04 | Inpatient (IN) | payer MEDICARE, OTHER ==
[2017-11-14 13:09] VITALS: BMI 30.9
--- NOTE | 2017-11-14 15:09 | HP ---
CIWA Score - CIWA Score Nausea/Vomitin-Mild Nausea/No Vomiting Muscle Tremors: 2 Anxiety: 2 Agitation: 2 Paroxysmal Sweats: 2 Orientation: 1-Uncertain about Date Tacttile Disturbances: 1-Very Mild Itch/Numbness Auditory Disturbances: 1-Very Mild Visual Disturbances: 1-Very Mild Sensitivity Headache: 1-Very Mild CIWA-Ar Total Score: 14 Admission ROS BHS - HPI Chief Complaint: WITHDRAWAL SYMPTOMS Allergies/Adverse Reactions: Allergies Allergy/AdvReac Type Severity Reaction Status Date / Time Penicillins Allergy Severe Rash Verified 11/14/17 14:28 History of Present Illness: 57 Y.O. MAN WITH AN EXTENSIVE HISTORY OF ALCOHOL DEPENDENCE IS HERE SEEKING DETOX. HE HAS HAD MULTIPLE ADMISSIONS HERE FOR DETOX WITH THE LAST BEING 09/13/17 -09/16/17. DOES NOT HAVE A SIGNIFICANT PERIOD OF SOBRIETY. Exam Limitations: No Limitations - Ebola screening Have you traveled outside of the country in the last 21 days: No (N) Have you had contact with anyone from an Ebola affected area: No Have you been sick,other than usual withdrawal symptoms: No Do you have a fever: No - Review of Systems Constitutional: Chills, Diaphoresis, Night Sweats EENT: reports: Blurred Vision, Tearing Respiratory: reports: No Symptoms reported Cardiac: reports: No Symptoms Reported GI: reports: No Symptoms Reported : reports: No Symptoms Reported Musculoskeletal: reports: Back Pain, Joint Pain (B/L KNEES) Integumentary: reports: No Symptoms Reported Neuro: reports: Tremors Endocrine: reports: No Symptoms Reported Hematology: reports: No Symptoms Reported Psychiatric: reports: Judgement Intact, Mood/Affect Appropiate, other (H/O INSOMNIA) Other Systems: Reviewed and Negative Patient History - Patient Medical History Hx Anemia: No Hx Asthma: No Hx Chronic Obstructive Pulmonary Disease (COPD): No Hx Cancer: No Hx Cardiac Disorders: No Hx Congestive Heart Failure: No Hx Hypertension: Yes Hx Hypercholesterolemia: No Hx Pacemaker: No HX Cerebrovascular Accident: No Hx Seizures: No Hx Dementia: No Hx Diabetes: No Hx Gastrointestinal Disorders: No Hx Liver Disease: No Hx Genitourinary Disorders: No Hx Sexually Transmitted Disorders: No Hx Renal Disease (ESRD): No Hx Thyroid Disease: No Hx Human Immunodeficiency Virus (HIV): No (Negative 2017) Hx Hepatitis C: No (Negative 2017) Hx Depression: No Hx Suicide Attempt: No Hx Bipolar Disorder: No Hx Schizophrenia: No - Patient Surgical History Past Surgical History: No Hx Neurologic Surgery: No Hx Cataract Extraction: No Hx Cardiac Surgery: No Hx Lung Surgery: No Hx Breast Surgery: No Hx Breast Biopsy: No Hx Abdominal Surgery: No Hx Appendectomy: No Hx Cholecystectomy: No Hx Genitourinary Surgery: No Hx Section: No Hx Orthopedic Surgery: No Anesthesia Reaction: No - PPD History Previous Implant?: Yes Documented Results: Negative w/proof Date: 08/17/17 Results: 0 MM PPD to be Administered?: No - Reproductive History Patient is a Female of Child Bearing Age (11 -55 yrs old): No - Smoking Cessation Smoking history: Former smoker Have you smoked in the past 12 months: Yes Aproximately how many cigarettes per day: 2 If you are a former smoker, when did you quit?: 30 YEARS Ago Hx Chewing Tobacco Use: No Initiated information on smoking cessation: Yes 'Breaking Loose' booklet given: 11/14/17 - Substance & Tx. History Hx Alcohol Use: Yes Hx Substance Use: No Substance Use Type: Alcohol Hx Substance Use Treatment: Yes (DETOX: 09/16/2017) - Substances Abused Alcohol Route: Oral Frequency: Daily Amount used: 1 Qt Vodka, (2) 16oz Beer Age of first use: 16 Date of Last Use: 11/14/17 Family Disease History - Family Disease History Family Disease History: Diabetes: Mother Admission Physical Exam BHS - Vital Signs Vital Signs: Vital Signs - 24 hr 11/14/17 13:07 Temperature 97.2 F L Pulse Rate 64 Respiratory 20 Rate Blood Pressure 132/91 - Physical General Appearance: Yes: Sweating, Anxious HEENTM: Yes: Hearing grossly Normal, Normal ENT Inspection, Normocephalic Respiratory: Yes: Chest Non-Tender, Lungs Clear, Normal Breath Sounds Neck: Yes: No masses,lesions,Nodules Breast: Yes: Breast Exam Deferred Cardiology: Yes: Regular Rhythm, Regular Rate Abdominal: Yes: Normal Bowel Sounds, Non Tender, Flat Genitourinary: Yes: Within Normal Limits Back: Yes: Normal Inspection Musculoskeletal: Yes: full range of Motion, Gait Steady, Pelvis Stable Extremities: Yes: Normal Capillary Refill, Normal Inspection, Normal Range of Motion, Non-Tender Neurological: Yes: Fully Oriented, Alert, Motor Strength 5/5, Normal Mood/Affect , Normal Response Integumentary: Yes: Normal Color, Dry, Warm - Diagnostic (1) Alcohol dependence with uncomplicated withdrawal Current Visit: Yes Status: Chronic (2) Asthma Current Visit: Yes Status: Chronic Qualifiers: Asthma severity: mild Asthma persistence: unspecified Asthma complication type: uncomplicated Qualified Code(s): J45.909 - Unspecified asthma, uncomplicated (3) Hypertension Current Visit: Yes Status: Chronic Qualifiers: Hypertension type: unspecified Qualified Code(s): I10 - Essential (primary ) hypertension Cleared for Admission BHS - Detox or Rehab [facility] Level of Care: Medically Managed Detox Regimen/Protocol: Librium [facility] Breath Alcohol Content Breath Alcohol Content: 0 Urine Drug Screen - Results Drug Screen Negative: No Urine Drug Screen Results: BZO-Benzodiazepines
[2017-11-14] MEDS ORDERED: ALBUTEROL SO4 8 GM HFA INHALER IH PRN (18:34)
[2017-11-14] MEDS ORDERED: LOPERAMIDE HCL 2 MG CAPSULE PO PRN (18:35)
[2017-11-14] MEDS ORDERED: P-EPHED 60MG/TRIPROLIDI 2.5MG TABLET PO PRN (18:35)
[2017-11-14] MEDS ORDERED: guaiFENesin/D-METHORPHAN HB 10 ML UNIT-DOSE CUPS PO PRN (18:35)
[2017-11-14] MEDS ORDERED: MAGNESIUM HYDROX 2400MG/30ML ORAL SUSPENSION 30 ML CUP PO PRN (18:35)
[2017-11-14] MEDS ORDERED: chlordiazePOXIDE HCL 25 MG CAPSULE PO PRN (18:35)
[2017-11-14] MEDS ORDERED: MAGNESIUM CITRATE 300 ML BOTTLE PO PRN (18:35)
[2017-11-14] MEDS ORDERED: hydrOXYzine PAMOATE 50 MG CAPSULE (FP) PO PRN (18:35)
[2017-11-14] MEDS ORDERED: NICOTINE POLACRILEX 2 MG GUM BC PRN (18:35)
[2017-11-14] MEDS ORDERED: MENTHOL/PHENOL 1 EACH UD MM PRN (18:35)
[2017-11-14] MEDS ORDERED: ACETAMINOPHEN 325 MG TABLET (FP) PO PRN (18:35)
[2017-11-14] MEDS ORDERED: MAG HYDROX/AL HYDROX/SIMETH 30 ML UNIT-DOSE CUP PO PRN (18:35)
[2017-11-14] MEDS ORDERED: IBUPROFEN 400 MG TABLET (FP) PO PRN (18:35)
[2017-11-14] MEDS: amLODIPine BESYLATE 10 MG TABLET (FP) PO SCH (18:42)
[2017-11-14] MEDS ORDERED: MELATONIN 5 MG TABLETS PO PRN (22:00)
[2017-11-14] MEDS: chlordiazePOXIDE HCL 25 MG CAPSULE PO SCH (23:09)
[2017-11-14] MEDS: THIAMINE HCL 100 MG TABLET (FP) PO SCH (23:09)
[2017-11-15] MEDS: chlordiazePOXIDE HCL 25 MG CAPSULE PO SCH ×4 (05:16→22:30)
[2017-11-15] MEDS: PRENATAL VITAMINS W/ FOLIC ACID TABLET (FP) PO SCH (10:50)
[2017-11-15] MEDS: amLODIPine BESYLATE 10 MG TABLET (FP) PO SCH (10:50)
[2017-11-15 11:05] LABS: HEMATOCRIT 37.3 % (35.4-49); HEMOGLOBIN 11.8 GM/dL (11.7-16.9); MCH 21.7 pg (25.7-33.7); MCHC 31.6 g/dl (32.0-35.9); MEAN CELL VOLUME 68.6 fl (80-96); MEAN PLT VOLUME 9.1 fl (7.5-11.1); PLATELET COUNT 190 K/MM3 (134-434); RBC 5.44 M/mm3 (4.00-5.60); RDW 18.5 % (11.9-15.9); WHITE BLOOD COUNT 2.4 K/mm3 (4.0-10.0)
[2017-11-15 11:07] LABS: CHLORIDE 105 mmol/L (98-107); POTASSIUM 3.9 mmol/L (3.5-5.1); SODIUM 142 mmol/L (136-145)
--- NOTE | 2017-11-15 11:16 | CONSULT ---
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 Refer to addiction counselor's summary for further information Medical History: Significant for hypertension and arthritis of both knees. Psychiatric History: Patient reports being diagnosed with Bipolar/Schizophrenia in 1986. Reports history of multiple psychiatric hospitalizations ([facility] in [place], [facility] in [place], [place] and [facility] in [facility] Reports no OPD care but he is prescribed Ambien 10 mg po HS and Xanax 1 mg po BID by his primary care physician. Reports that he has been on Seroquel, Prozac and Buspar in the past. Patient denies history of suicide attempts. At present, reorts feeling anxious and sleeping poorly Physical/Sexual Abuse/Trauma History: Denies history of emotional, physical or sexual abuse as well as DV relationship. No service Additional Comment: Denies criminal history Mental Status Exam - Mental Status Exam Alert and Oriented to: Time, Place, Person Cognitive Function: Fair Patient Appearance: Well Groomed Mood: Anxious Affect: Appropriate Patient Behavior: Cooperative Speech Pattern: Clear Voice Loudness: Normal Thought Process: Intact, Goal Oriented Hallucinations: Denies Suicidal Ideation: Denies Homicidal Ideation: Denies Insight/Judgement: Poor Sleep: Poorly Appetite: Good Muscle strength/Tone: Normal Gait/Station: Normal Psychiatric Findings - Problem List ([place] 1, 2,3) (1) Schizoaffective disorder Current Visit: Yes Status: Chronic (2) Alcohol-induced anxiety disorder Current Visit: Yes Status: Acute (3) Alcohol-induced sleep disorder Current Visit: Yes Status: Acute (4) Alcohol dependence with uncomplicated withdrawal Current Visit: Yes Status: Chronic (5) Hypertension Current Visit: Yes Status: Chronic Qualifiers: Hypertension type: unspecified Qualified Code(s): I10 - Essential (primary ) hypertension (6) Arthritis of both knees Current Visit: No Status: Chronic - Initial Treatment Plan Initial Treatment Plan: 1) Start Vistaril 50 mg po Q 4 hrs prn for anxiety and insomnia. 2) Continue inpatient detoxification
[2017-11-15 11:24] LABS: ALBUMIN 3.2 g/dl (3.4-5.0); ALK PHOS 61 U/L (45-117); ANION GAP 10 MMOL/L (8-16); BILIRUBIN,TOTAL 0.4 mg/dL (0.2-1.0); BLOOD UREA NITROGEN 11 mg/dL (7-18); CALCIUM 8.4 mg/dL (8.5-10.1); CO2 27 mmol/L (21-32); CREATININE 0.8 mg/dL (0.7-1.3); GLUCOSE,RANDOM 95 mg/dL (74-106); SGOT/AST 34 U/L (15-37); SGPT/ALT 31 U/L (12-78); TOT PROT 6.5 g/dl (6.4-8.2)
[2017-11-15 11:35] LABS: URINE APPEARANCE TURBID; URINE BILIRUBIN NEGATIVE (<2.0 mg/dL); URINE GLUCOSE (UA) NEGATIVE (NEGATIVE); URINE KETONE NEGATIVE (NEGATIVE); URINE LEUK ESTERASE NEGATIVE (NEGATIVE); URINE NITRITE NEGATIVE (NEGATIVE); URINE PROTEIN NEGATIVE (NEGATIVE)
[2017-11-15 11:47] LABS: URINE COLOR YELLOW
--- NOTE | 2017-11-15 16:54 | PN ---
S CIWA - CIWA Score Nausea/Vomitin Muscle Tremors: 3 Anxiety: 3 Agitation: 3 Paroxysmal Sweats: 3 Orientation: 0-Oriented Tacttile Disturbances: 1-Very Mild Itch/Numbness Auditory Disturbances: 0-None Visual Disturbances: 0-None Headache: 1-Very Mild CIWA-Ar Total Score: 17 [facility] Progress Note (SOAP) Subjective: Sweating, tremor, interrupted sleep Objective: 11/15/17 16:53 Last Vital Signs Temp Pulse Resp BP Pulse Ox 97.1 F L 76 18 111/75 11/15/17 13:15 11/15/17 13:15 11/15/17 13:15 11/15/17 13:15 Laboratory Tests 11/15/17 11/15/17 11/15/17 08:00 08:00 08:00 WBC 2.4 L RBC 5.44 Hgb 11.8 Hct 37.3 MCV 68.6 L MCH 21.7 L MCHC 31.6 L RDW 18.5 H Plt Count 190 MPV 9.1 Sodium 142 Potassium 3.9 Chloride 105 Carbon Dioxide 27 D Anion Gap 10 BUN 11 Creatinine 0.8 Creat Clearance w eGFR > 60 Random Glucose 95 D Calcium 8.4 L Total Bilirubin 0.4 AST 34 D ALT 31 Alkaline Phosphatase 61 Total Protein 6.5 Albumin 3.2 L Urine Color Urine Appearance Urine pH Ur Specific [place] Urine Protein Urine Glucose (UA) Urine Ketones Urine Blood Urine Nitrite Urine Bilirubin Urine Urobilinogen Ur Leukocyte Esterase RPR Titer HIV 1&2 Antibody Screen Negative HIV P24 Antigen Negative 11/15/17 11/15/17 08:00 09:00 WBC RBC Hgb Hct MCV MCH MCHC RDW Plt Count MPV Sodium Potassium Chloride Carbon Dioxide Anion Gap BUN Creatinine Creat Clearance w eGFR Random Glucose Calcium Total Bilirubin AST ALT Alkaline Phosphatase Total Protein Albumin Urine Color Yellow Urine Appearance Turbid Urine pH 5.0 D Ur Specific [place] 1.027 Urine Protein Negative Urine Glucose (UA) Negative Urine Ketones Negative Urine Blood Negative Urine Nitrite Negative Urine Bilirubin Negative Urine Urobilinogen 2.0 Ur Leukocyte Esterase Negative RPR Titer Nonreactive HIV 1&2 Antibody Screen HIV P24 Antigen Labs reviewed Assessment: 11/15/17 16:54 Withdrawal symptoms Plan: Continue detox
[2017-11-15] MEDS: THIAMINE HCL 100 MG TABLET (FP) PO SCH (22:30)
[2017-11-16] MEDS: chlordiazePOXIDE HCL 25 MG CAPSULE PO SCH ×3 (05:38→17:01)
[2017-11-16] MEDS: amLODIPine BESYLATE 10 MG TABLET (FP) PO SCH (10:19)
[2017-11-16] MEDS: PRENATAL VITAMINS W/ FOLIC ACID TABLET (FP) PO SCH (10:19)
--- NOTE | 2017-11-16 11:24 | EKG ---
Test Reason : Blood Pressure : / mmHG Vent. Rate : 058 BPM Atrial Rate : 058 BPM P-R Int : 178 ms QRS Dur : 092 ms QT Int : 436 ms P-R-T Axes : 054 003 023 degrees QTc Int : 428 ms SINUS BRADYCARDIA SEPTAL INFARCT , AGE UNDETERMINED ABNORMAL ECG WHEN COMPARED WITH ECG OF 14-SEP-2017 14:54, VENT. RATE HAS DECREASED BY 34 BPM SEPTAL INFARCT IS NOW PRESENT Confirmed by PEEWEE GILL, PHYLLIS ([id number]) on 11/16/2017 11:24:23 AM Referred By: Confirmed By:PHYLLIS VIDES MD
[2017-11-16 13:21] VITALS: BP 133/88; PULSE 80; TEMP 98.8
--- NOTE | 2017-11-16 15:31 | PN ---
S CIWA - CIWA Score Nausea/Vomitin Muscle Tremors: 3 Anxiety: 2 Agitation: 2 Paroxysmal Sweats: 3 Orientation: 0-Oriented Tacttile Disturbances: 0-None Auditory Disturbances: 0-None Visual Disturbances: 0-None Headache: 0-None Present CIWA-Ar Total Score: 12 [facility] Progress Note (SOAP) Subjective: sleep disturbance sweats Objective: 11/16/17 15:30 A & O x 3 no distress noted Vital Signs Temperature 98.8 F 11/16/17 13:20 Pulse Rate 80 11/16/17 13:20 Respiratory Rate 18 11/16/17 13:20 Blood Pressure 133/88 11/16/17 13:20 O2 Sat by Pulse Oximetry (%) Assessment: 11/16/17 15:30 withdrawal sx Plan: continue detox
--- NOTE | 2017-11-16 21:16 | DS ---
[facility] Detox Discharge Summary Admission Date: 11/14/17 Discharge Date: 11/16/17 - History Present History: Alcohol Dependence Additional Comments: Admitted for alcohol withdrawal symptoms. Pertinent Past History: Long history alcohol use disorder with multiple treatment attempts. - Physical Exam Results Vital Signs: Vital Signs Temperature 98.8 F 11/16/17 13:20 Pulse Rate 80 11/16/17 13:20 Respiratory Rate 18 11/16/17 13:20 Blood Pressure 133/88 11/16/17 13:20 O2 Sat by Pulse Oximetry (%) Pertinent Admission Physical Exam Findings: Admitted for alcohol withdrawal symptoms. Laboratory Tests 11/15/17 11/15/17 11/15/17 08:00 08:00 08:00 WBC 2.4 L RBC 5.44 Hgb 11.8 Hct 37.3 MCV 68.6 L MCH 21.7 L MCHC 31.6 L RDW 18.5 H Plt Count 190 MPV 9.1 Sodium 142 Potassium 3.9 Chloride 105 Carbon Dioxide 27 D Anion Gap 10 BUN 11 Creatinine 0.8 Creat Clearance w eGFR > 60 Random Glucose 95 D Calcium 8.4 L Total Bilirubin 0.4 AST 34 D ALT 31 Alkaline Phosphatase 61 Total Protein 6.5 Albumin 3.2 L Urine Color Urine Appearance Urine pH Ur Specific [place] Urine Protein Urine Glucose (UA) Urine Ketones Urine Blood Urine Nitrite Urine Bilirubin Urine Urobilinogen Ur Leukocyte Esterase RPR Titer HIV 1&2 Antibody Screen Negative HIV P24 Antigen Negative 11/15/17 11/15/17 08:00 09:00 WBC RBC Hgb Hct MCV MCH MCHC RDW Plt Count MPV Sodium Potassium Chloride Carbon Dioxide Anion Gap BUN Creatinine Creat Clearance w eGFR Random Glucose Calcium Total Bilirubin AST ALT Alkaline Phosphatase Total Protein Albumin Urine Color Yellow Urine Appearance Turbid Urine pH 5.0 D Ur Specific [place] 1.027 Urine Protein Negative Urine Glucose (UA) Negative Urine Ketones Negative Urine Blood Negative Urine Nitrite Negative Urine Bilirubin Negative Urine Urobilinogen 2.0 Ur Leukocyte Esterase Negative RPR Titer Nonreactive HIV 1&2 Antibody Screen HIV P24 Antigen Labs reviewed. - Treatment Hospital Course: Detox Protocol Followed (Patient did not complete detox protocol), Discharged Condition Good (Patient left alert and oriented. Steady gait.) - Medication Discharge Medications: Ambulatory Orders Zolpidem Tartrate [Ambien] 10 mg PO DAILY 07/21/17 Albuterol Sulfate Inhaler - [Ventolin HFA Inhaler -] 2 inh IH Q4H PRN #1 inhaler 07/24/17 Amlodipine Besylate [Norvasc -] 10 mg PO DAILY #30 tablet 07/24/17 - Diagnosis (1) Alcohol dependence with uncomplicated withdrawal Status: Acute - AMA Did Patient Leave Against Medical Advice: Yes (Despite encouragement to stay. )
--- NOTE | 2017-11-16 21:21 | PN ---
[facility] Progress Note Note: Patient left AMA despite discussion of medication management review and encouragement to stay. Patient is aware of relapse risks. Patient declined any referrals.
[2017-11-16] MEDS ORDERED: chlordiazePOXIDE 5 MG CAPSULE PO SCH (23:00)
[2017-11-17] MEDS ORDERED: chlordiazePOXIDE HCL 10 MG CAPSULE PO SCH (23:00)
== END 2017-11-16 17:55 | disposition home or self-care (01) | DRG 897 ==
LOC: YASAS 12:04 → Y3N 16:16
PROC: HZ2ZZZZ Detoxification Services for Substance Abuse Treatment (ICD-10-PCS; principal; 2017-11-14)
DX: F10.230 Alcohol dependence with withdrawal, uncomplicated (principal); F10.280 Alcohol dependence with alcohol-induced anxiety disorder; F10.282 Alcohol dependence with alcohol-induced sleep disorder; F31.9 Bipolar disorder, unspecified; F41.9 Anxiety disorder, unspecified; F25.9 Schizoaffective disorder, unspecified; I10 Essential (primary) hypertension; J45.909 Unspecified asthma, uncomplicated; M13.862 Other specified arthritis, left knee; M13.861 Other specified arthritis, right knee; Z88.0 Allergy status to penicillin
CPT/HCPCS: 36415; 80053; 81003; 85027; 86593; 87389; 93005; 93010

== ENCOUNTER 2018-11-16 20:10 | Inpatient (IN) | payer MEDICARE, OTHER ==
[2018-11-16 21:26] VITALS: BMI 29.9
--- NOTE | 2018-11-17 01:05 | HP ---
CIWA Score Nausea/Vomitin-Mild Nausea/No Vomiting Muscle Tremors: 3 Anxiety: 4-Mod. Anxious/Guarded Agitation: 2 Paroxysmal Sweats: 2 Orientation: 1-Uncertain about Date Tacttile Disturbances: 0-None Auditory Disturbances: 0-None Visual Disturbances: 0-None Headache: 3-Moderate CIWA-Ar Total Score: 16 - Admission Criteria [facility] Guidelines: Admission for Medically Managed Detox: Requires at least one of the followin. CIWA greater than 12 2. Seizures within the past 24 hours 3. Delirium tremens within the past 24 hours 4. Hallucinations within the past 24 hours 5. Acute intervention needed for co occurring medical disorder 6. Acute intervention needed for co occurring psychiatric disorder 7. Severe withdrawal that cannot be handled at a lower level of care (continued vomiting, continued diarrhea, abnormal vital signs) requiring intravenous medication and/or fluids 8. Admission ROS S - HPI Chief Complaint: Alcohol withdrawal symptoms Allergies/Adverse Reactions: Allergies Allergy/AdvReac Type Severity Reaction Status Date / Time Penicillins Allergy Severe Rash Verified 11/14/17 14:28 History of Present Illness: 58 years old male with a long history of alcohol dependence is seeking admission to detox. Patient reports insignificant period of sobriety. He has history of hypertension, depression and asthma. Patient denies suicidal ideation at this time. - Ebola screening Have you traveled outside of the country in the last 21 days: No (N) Have you had contact with anyone from an Ebola affected area: No Do you have a fever: No - Review of Systems Constitutional: Chills, Malaise, Changes in sleep EENT: reports: No Symptoms Reported Respiratory: reports: No Symptoms reported Cardiac: reports: No Symptoms Reported GI: reports: No Symptoms Reported, Diarrhea, Poor Appetite, Poor Fluid Intake, Abdominal cramping : reports: No Symptoms Reported Musculoskeletal: reports: Back Pain, Other (knee cookie) Integumentary: reports: Dryness, Flushing Neuro: reports: Tremors Endocrine: reports: No Symptoms Reported Hematology: reports: No Symptoms Reported Psychiatric: reports: Mood/Affect Appropiate Other Systems: Reviewed and Negative Patient History - Patient Medical History Hx Anemia: No Hx Asthma: Yes Hx Chronic Obstructive Pulmonary Disease (COPD): No Hx Cancer: No Hx Cardiac Disorders: No Hx Congestive Heart Failure: No Hx Hypertension: Yes Hx Hypercholesterolemia: No Hx Pacemaker: No HX Cerebrovascular Accident: No Hx Seizures: No Hx Dementia: No Hx Diabetes: No Hx Gastrointestinal Disorders: No Hx Liver Disease: No Hx Genitourinary Disorders: No Hx Sexually Transmitted Disorders: No Hx Renal Disease (ESRD): No Hx Thyroid Disease: No Hx Human Immunodeficiency Virus (HIV): No (Negative 2017) Hx Hepatitis C: No (Negative 2017) Hx Depression: No Hx Suicide Attempt: No Hx Bipolar Disorder: No Hx Schizophrenia: No - Patient Surgical History Past Surgical History: No Hx Neurologic Surgery: No Hx Cataract Extraction: No Hx Cardiac Surgery: No Hx Lung Surgery: No Hx Abdominal Surgery: No Hx Appendectomy: No Hx Cholecystectomy: No Hx Genitourinary Surgery: No Hx Orthopedic Surgery: No Anesthesia Reaction: No - PPD History Previous Implant?: Yes Documented Results: Negative w/proof Implanted On Prior [facility] Admission?: Yes Date: 08/17/17 Results: 0 MM PPD to be Administered?: Yes - Reproductive History Patient is a Female of Child Bearing Age (11 -55 yrs old): No (male) Patient : No - Smoking Cessation Smoking history: Former smoker Have you smoked in the past 12 months: Yes Aproximately how many cigarettes per day: 2 If you are a former smoker, when did you quit?: 30 YEARS Ago Hx Chewing Tobacco Use: No Initiated information on smoking cessation: No - Substance & Tx. History Hx Alcohol Use: Yes Hx Substance Use: No Substance Use Type: Alcohol Hx Substance Use Treatment: Yes ([facility]) - Substances abused Alcohol Substance route: Oral Frequency: Daily Amount used: 1/2 pint of vodka ,6 pack of beer Age of first use: 16 Date of last use: 11/16/18 Family Disease History - Family Disease History Family Disease History: Diabetes: Mother Admission Physical Exam S - Vital Signs Vital Signs: Vital Signs - 24 hr 11/16/18 21:22 Temperature 99 F Pulse Rate 82 Respiratory 19 Rate Blood Pressure 125/80 - Physical General Appearance: Yes: Moderate Distress, Tremorous, Irritable, Sweating, Anxious HEENTM: Yes: Within Normal Limits, MARYSE Respiratory: Yes: Lungs Clear, Normal Breath Sounds, No Respiratory Distress Neck: Yes: Supple Breast: Yes: Breast Exam Deferred Cardiology: Yes: Regular Rhythm, Regular Rate Abdominal: Yes: Normal Bowel Sounds Genitourinary: Yes: Within Normal Limits Back: Yes: Normal Inspection Musculoskeletal: Yes: Back pain, Muscle Pain Extremities: Yes: Tremors Neurological: Yes: Normal Mood/Affect Integumentary: Yes: Warm Lymphatic: Yes: Within Normal Limits - Diagnostic (1) Alcohol dependence with uncomplicated withdrawal Current Visit: No Status: Acute (2) Asthma Current Visit: No Status: Chronic Qualifiers: Asthma severity: mild Asthma persistence: unspecified Asthma complication type: uncomplicated Qualified Code(s): J45.909 - Unspecified asthma, uncomplicated (3) Depression Current Visit: No Status: Chronic Qualifiers: Depression Type: unspecified Qualified Code(s): F32.9 - Major depressive disorder, single episode, unspecified (4) Hypertension Current Visit: No Status: Chronic Qualifiers: Hypertension type: unspecified Qualified Code(s): I10 - Essential (primary ) hypertension Cleared for Admission S - Detox or Rehab [facility] Level of Care: Medically Managed Detox Regimen/Protocol: Librium Screened but not Admitted - Documentation of Visit Screened but not Admitted: No Breathalyzer - Breathalyzer Breathalyzer: 0 Urine Drug Screen - Test Device Lot number: [id number] Expiration date: 08/06/20 - Control Is test valid?: Yes - Results Drug screen NEGATIVE: Yes Inpatient Rehab Admission - Rehab Decision to Admit Inpatient rehab admission?: No
[2018-11-17] MEDS ORDERED: MENTHOL/PHENOL 1 EACH UD MM PRN (01:16)
[2018-11-17] MEDS ORDERED: hydrOXYzine PAMOATE 25 MG CAPSULE (FP) PO PRN (01:16)
[2018-11-17] MEDS ORDERED: METHOCARBAMOL 500 MG TABLET PO PRN (01:16)
[2018-11-17] MEDS ORDERED: ACETAMINOPHEN 325 MG TABLET (FP) PO PRN ×2 (01:16)
[2018-11-17] MEDS ORDERED: IBUPROFEN 400 MG TABLET (FP) PO PRN (01:16)
[2018-11-17] MEDS ORDERED: BISMUTH SUBSALICYLATE 524 MG/30 ML UD PO PRN (01:16)
[2018-11-17] MEDS ORDERED: NICOTINE POLACRILEX 2 MG GUM BUC PRN (01:16)
[2018-11-17] MEDS ORDERED: MAG HYDROX/AL HYDROX/SIMETH 30 ML UNIT-DOSE CUP PO PRN (01:16)
[2018-11-17] MEDS ORDERED: MELATONIN 5 MG TABLETS PO PRN (01:16)
[2018-11-17] MEDS ORDERED: MAGNESIUM HYDROX 2400MG/30ML ORAL SUSPENSION 30 ML CUP PO PRN (01:16)
[2018-11-17] MEDS ORDERED: MAGNESIUM CITRATE 300 ML BOTTLE PO PRN (01:16)
[2018-11-17] MEDS ORDERED: ALBUTEROL SO4 8 GM HFA INHALER IH PRN (01:17)
[2018-11-17] MEDS: chlordiazePOXIDE HCL 25 MG CAPSULE PO PRN ×2 (01:55→14:49)
[2018-11-17] MEDS: chlordiazePOXIDE HCL 25 MG CAPSULE PO SCH ×4 (05:54→22:31)
--- NOTE | 2018-11-17 10:29 | PN ---
S CIWA - CIWA Score Nausea/Vomitin Muscle Tremors: 2 Anxiety: 3 Agitation: 3 Paroxysmal Sweats: 1-Minimal Palms Moist Orientation: 0-Oriented Tacttile Disturbances: 1-Very Mild Itch/Numbness Auditory Disturbances: 0-None Visual Disturbances: 0-None Headache: 2-Mild CIWA-Ar Total Score: 14 [facility] Progress Note (SOAP) Subjective: alert,irritable,anxious,interrupted sleep,tremor Objective: 11/17/18 10:27 Vital Signs Temperature 98.6 F 11/17/18 09:35 Pulse Rate 84 11/17/18 09:35 Respiratory Rate 18 11/17/18 09:35 Blood Pressure 139/78 11/17/18 09:35 O2 Sat by Pulse Oximetry (%) labs pending Assessment: 11/17/18 10:28 withdrawal symptom Plan: continue detox librium regimen
[2018-11-17] MEDS: NICOTINE 14 MG/24 HOURS TOPICAL PATCH TD SCH (10:38)
[2018-11-17] MEDS: amLODIPine BESYLATE 5 MG TABLET (FP) PO SCH (10:38)
[2018-11-17] MEDS: PRENATAL VITAMINS W/ FOLIC ACID TABLET (FP) PO SCH (10:38)
[2018-11-17 12:30] LABS: ALBUMIN 3.7 g/dl (3.4-5.0); BILIRUBIN,TOTAL 1.1 mg/dL (0.2-1); BLOOD UREA NITROGEN 10.7 mg/dL (7-18); CALCIUM 8.5 mg/dL (8.5-10.1); POTASSIUM 3.2 mmol/L (3.5-5.1)
[2018-11-17 12:35] LABS: HEMATOCRIT 37.2 % (35.4-49); MCH 22.3 pg (25.7-33.7); MCHC 32.3 g/dl (32.0-35.9); MEAN CELL VOLUME 69.2 fl (80-96); MEAN PLT VOLUME 9.3 fl (7.5-11.1); PLATELET COUNT 183 K/MM3 (134-434); RBC 5.38 M/mm3 (4.00-5.60); RDW 16.3 % (11.9-15.9); WHITE BLOOD COUNT 3.8 K/mm3 (4.0-10.0)
--- NOTE | 2018-11-17 13:28 | EKG ---
Test Reason : Blood Pressure : / mmHG Vent. Rate : 067 BPM Atrial Rate : 067 BPM P-R Int : 182 ms QRS Dur : 104 ms QT Int : 416 ms P-R-T Axes : 059 -06 020 degrees QTc Int : 439 ms NORMAL SINUS RHYTHM NORMAL ECG WHEN COMPARED WITH ECG OF 14-NOV-2017 17:36, NO SIGNIFICANT CHANGE WAS FOUND Confirmed by TODD WILSON MD ([id number]) on 11/17/2018 1:28:46 PM Referred By: Confirmed By:TODD WILSON MD
--- NOTE | 2018-11-17 14:04 | PN ---
[facility] Progress Note Note: mild hypokalemia 3.2; kdur 61ezir1 days ordered.
[2018-11-17] MEDS: POTASSIUM CHLORIDE TABS 20 MEQ TABLET.ER (FP) PO SCH (14:49)
[2018-11-17] MEDS ORDERED: THIAMINE HCL 100 MG TABLET (FP) PO SCH (22:00)
[2018-11-18] MEDS: chlordiazePOXIDE HCL 25 MG CAPSULE PO SCH ×2 (06:16→10:03)
[2018-11-18 09:26] VITALS: BP 134/71; PULSE 102; TEMP 97.3
[2018-11-18] MEDS: amLODIPine BESYLATE 5 MG TABLET (FP) PO SCH (10:02)
[2018-11-18] MEDS: POTASSIUM CHLORIDE TABS 20 MEQ TABLET.ER (FP) PO SCH (10:02)
[2018-11-18] MEDS: PRENATAL VITAMINS W/ FOLIC ACID TABLET (FP) PO SCH (10:02)
[2018-11-18] MEDS: NICOTINE 14 MG/24 HOURS TOPICAL PATCH TD SCH (10:03)
--- NOTE | 2018-11-18 12:13 | PN ---
S CIWA - CIWA Score Nausea/Vomitin Muscle Tremors: 2 Anxiety: 2 Agitation: 2 Paroxysmal Sweats: 1-Minimal Palms Moist Orientation: 0-Oriented Tacttile Disturbances: 0-None Auditory Disturbances: 0-None Visual Disturbances: 0-None Headache: 1-Very Mild CIWA-Ar Total Score: 10 S Progress Note (SOAP) Subjective: alert,irritable,anxious,interrupted sleep,pain in the body,knees,arthritis Objective: 11/18/18 12:10 Vital Signs Temperature 97.3 F L 11/18/18 09:26 Pulse Rate 102 H 11/18/18 09:26 Respiratory Rate 18 11/18/18 09:26 Blood Pressure 134/71 11/18/18 09:26 O2 Sat by Pulse Oximetry (%) Laboratory Last Values WBC 3.8 K/mm3 (4.0-10.0) L 11/17/18 09:00 RBC 5.38 M/mm3 (4.00-5.60) 11/17/18 09:00 Hgb 12.0 GM/dL (11.7-16.9) 11/17/18 09:00 Hct 37.2 % (35.4-49) 11/17/18 09:00 MCV 69.2 fl (80-96) L 11/17/18 09:00 MCH 22.3 pg (25.7-33.7) L 11/17/18 09:00 MCHC 32.3 g/dl (32.0-35.9) 11/17/18 09:00 RDW 16.3 % (11.9-15.9) H 11/17/18 09:00 Plt Count 183 K/MM3 (134-434) 11/17/18 09:00 MPV 9.3 fl (7.5-11.1) 11/17/18 09:00 Sodium 136 mmol/L (136-145) 11/17/18 09:00 Potassium 3.2 mmol/L (3.5-5.1) L 11/17/18 09:00 Chloride 99 mmol/L (98-107) 11/17/18 09:00 Carbon Dioxide 30 mmol/L (21-32) 11/17/18 09:00 Anion Gap 7 MMOL/L (8-16) L 11/17/18 09:00 BUN 10.7 mg/dL (7-18) 11/17/18 09:00 Creatinine 1.0 mg/dL (0.55-1.3) 11/17/18 09:00 Est GFR (CKD-EPI)AfAm 95.73 11/17/18 09:00 Est GFR (CKD-EPI)NonAf 82.60 11/17/18 09:00 Random Glucose 139 mg/dL (74-106) H 11/17/18 09:00 Calcium 8.5 mg/dL (8.5-10.1) 11/17/18 09:00 Total Bilirubin 1.1 mg/dL (0.2-1) H 11/17/18 09:00 AST 50 U/L (15-37) H 11/17/18 09:00 ALT 42 U/L (13-61) 11/17/18 09:00 Alkaline Phosphatase 72 U/L (45-117) 11/17/18 09:00 Total Protein 7.0 g/dl (6.4-8.2) 11/17/18 09:00 Albumin 3.7 g/dl (3.4-5.0) 11/17/18 09:00 RPR Titer Nonreactive (NONREACTIVE) 11/17/18 09:00 HIV 1&2 Antibody Screen Negative 11/17/18 09:00 HIV P24 Antigen Negative 11/17/18 09:00 Assessment: 11/18/18 12:10 withdrawal symptom Plan: continue detox,on k replacement,repeat cbc,cmp,fasting glucose in am
--- NOTE | 2018-11-18 12:31 | PN ---
[facility] Progress Note Note: patient did not want to complete treatment due to personal problem,the high risk of relapsing explained,patient understood, signed release AMA,state will see medical provider for follow up on medical issue and hyperglycemia, diet modification advise
--- NOTE | 2018-11-18 12:34 | DS ---
[facility] Detox Discharge Summary Admission Date: 11/17/18 Discharge Date: 11/18/18 - History Present History: Alcohol Dependence Additional Comments: patient signed release AMA Pertinent Past History: asthma hypertension depression - Physical Exam Results Vital Signs: Vital Signs Temperature 97.3 F L 11/18/18 09:26 Pulse Rate 102 H 11/18/18 09:26 Respiratory Rate 18 11/18/18 09:26 Blood Pressure 134/71 11/18/18 09:26 O2 Sat by Pulse Oximetry (%) Pertinent Admission Physical Exam Findings: withdrawal signs and symptom - Medication Discharge Medications: Ambulatory Orders Albuterol Sulfate Inhaler - [Ventolin HFA Inhaler -] 2 inh IH Q4H PRN #1 inhaler 07/24/17 Amlodipine Besylate [Norvasc -] 10 mg PO DAILY #30 tablet 07/24/17 - Diagnosis (1) Alcohol dependence with uncomplicated withdrawal Current Visit: No Status: Acute (2) Asthma Current Visit: No Status: Chronic Qualifiers: Asthma severity: mild Asthma persistence: unspecified Asthma complication type: uncomplicated Qualified Code(s): J45.909 - Unspecified asthma, uncomplicated (3) Depression Current Visit: No Status: Chronic Qualifiers: Depression Type: unspecified Qualified Code(s): F32.9 - Major depressive disorder, single episode, unspecified (4) Essential hypertension Current Visit: No Status: Chronic - AMA Did Patient Leave Against Medical Advice: Yes
[2018-11-19] MEDS ORDERED: chlordiazePOXIDE HCL 10 MG CAPSULE PO PRN
[2018-11-19] MEDS ORDERED: chlordiazePOXIDE HCL 10 MG CAPSULE PO SCH (05:00)
[2018-11-20] MEDS ORDERED: chlordiazePOXIDE HCL 10 MG CAPSULE PO SCH (05:00)
[2018-11-21] MEDS ORDERED: chlordiazePOXIDE HCL 10 MG CAPSULE PO ONE (05:00)
== END 2018-11-18 12:47 | disposition left against medical advice (07) | DRG 894 ==
LOC: YASAS 20:10 → Y6N 11-17 01:25
PROVIDERS: ADMIT Surgery; ATTEND Surgery
PROC: HZ2ZZZZ Detoxification Services for Substance Abuse Treatment (ICD-10-PCS; principal; 2018-11-17)
DX: F10.230 Alcohol dependence with withdrawal, uncomplicated (principal); F32.9 Major depressive disorder, single episode, unspecified; I10 Essential (primary) hypertension; J45.909 Unspecified asthma, uncomplicated; E87.6 Hypokalemia; Z87.891 Personal history of nicotine dependence; Z88.0 Allergy status to penicillin
CPT/HCPCS: 36415; 80053; 85027; 86480; 86593; 87389; 93005; 93010

== ENCOUNTER 2020-04-27 22:03 | Inpatient (IN) | payer MEDICARE, OTHER ==
[2020-04-27 22:43] VITALS: BMI 34.6
[2020-04-27] MEDS ORDERED: ONDANSETRON *ODT* 4 MG TABLET SL PRN (22:57)
[2020-04-27] MEDS ORDERED: ACETAMINOPHEN 325 MG TABLET (FP) PO PRN ×2 (22:57)
[2020-04-27] MEDS ORDERED: P-EPHED 60MG/TRIPROLIDI 2.5MG TABLET PO PRN (22:57)
[2020-04-27] MEDS ORDERED: MAG HYDROX/AL HYDROX/SIMETH 30 ML UNIT-DOSE CUP PO PRN (22:57)
[2020-04-27] MEDS ORDERED: BISMUTH SUBSALICYLATE 524 MG/30 ML UD PO PRN (22:57)
[2020-04-27] MEDS ORDERED: MAGNESIUM HYDROX 2400MG/30ML ORAL SUSPENSION 30 ML CUP PO PRN (22:57)
[2020-04-27] MEDS ORDERED: MAGNESIUM CITRATE 300 ML BOTTLE PO PRN (22:57)
[2020-04-27] MEDS ORDERED: DICYCLOMINE HCL 10 MG CAPSULE PO PRN (22:57)
[2020-04-27] MEDS ORDERED: METHOCARBAMOL 500 MG TABLET PO PRN (22:57)
[2020-04-27] MEDS ORDERED: guaiFENesin 200 MG/10 ML 10 ML UNIT-DOSE CUPS PO PRN (22:57)
[2020-04-27] MEDS ORDERED: MENTHOL/PHENOL 1 EACH UD MM PRN (22:57)
[2020-04-27] MEDS ORDERED: LORazepam 1 MG TABLET PO PRN (22:57)
[2020-04-28] MEDS: LORazepam 2 MG TABLET PO SCH ×5 (00:01→22:16)
[2020-04-28] MEDS: PRENATAL VITAMINS W/ FOLIC ACID TABLET (FP) PO SCH (10:03)
[2020-04-28] MEDS: IBUPROFEN 400 MG TABLET (FP) PO PRN (10:04)
[2020-04-28 13:12] LABS: POTASSIUM 3.1 mmol/L (3.5-5.1)
[2020-04-28 13:19] LABS: ALBUMIN 3.3 g/dl (3.4-5.0); BLOOD UREA NITROGEN 15.6 mg/dL (7-18); CALCIUM 7.9 mg/dL (8.5-10.1)
[2020-04-28 13:23] LABS: BILIRUBIN,TOTAL 0.7 mg/dL (0.2-1); CREATININE 0.9 mg/dL (0.55-1.3); TOT PROT 6.5 g/dl (6.4-8.2)
[2020-04-28 13:31] LABS: HEMATOCRIT 30.9 % (35.4-49); HEMOGLOBIN 10.1 GM/dL (11.7-16.9); MCH 21.7 pg (25.7-33.7); MCHC 32.8 g/dl (32.0-35.9); MEAN CELL VOLUME 66.2 fl (80-96); MEAN PLT VOLUME 9.3 fl (7.5-11.1); PLATELET COUNT 182 K/MM3 (134-434); RBC 4.66 M/mm3 (4.00-5.60); RDW 18.7 % (11.9-15.9); WHITE BLOOD COUNT 3.4 K/mm3 (4.0-10.0)
[2020-04-28] MEDS ORDERED: hydrOXYzine PAMOATE 50 MG CAPSULE (FP) PO PRN (13:45)
[2020-04-28] MEDS ORDERED: POTASSIUM CHLORIDE TABS 20 MEQ TABLET.ER (FP) PO ONE ×2 (14:45→21:00)
[2020-04-28 18:27] LABS: URINE APPEARANCE TURBID; URINE BILIRUBIN 1+ (NEGATIVE); URINE COLOR DK YELLOW; URINE GLUCOSE (UA) NEGATIVE (NEGATIVE); URINE KETONE TRACE (NEGATIVE); URINE LEUK ESTERASE NEGATIVE (NEGATIVE); URINE NITRITE NEGATIVE (NEGATIVE); URINE PROTEIN TRACE (NEGATIVE)
[2020-04-28] MEDS: MELATONIN 5 MG TABLETS PO SCH (22:17)
[2020-04-28] MEDS: THIAMINE HCL 100 MG TABLET (FP) PO SCH (22:17)
[2020-04-29] MEDS: LORazepam 1 MG TABLET PO SCH ×4 (06:11→22:12)
[2020-04-29] MEDS: PRENATAL VITAMINS W/ FOLIC ACID TABLET (FP) PO SCH (10:09)
[2020-04-29] MEDS: amLODIPine BESYLATE 10 MG TABLET (FP) PO SCH (10:56)
[2020-04-29] MEDS: IBUPROFEN 400 MG TABLET (FP) PO PRN (18:16)
[2020-04-29] MEDS: THIAMINE HCL 100 MG TABLET (FP) PO SCH (22:12)
[2020-04-29] MEDS: MELATONIN 5 MG TABLETS PO SCH (22:12)
[2020-04-30] MEDS ORDERED: LORazepam 0.5 MG TABLET PO PRN
[2020-04-30] MEDS: LORazepam 0.5 MG TABLET PO SCH ×2 (05:24→10:03)
[2020-04-30 09:10] VITALS: BP 133/81; PULSE 79; TEMP 96.9
[2020-04-30] MEDS: amLODIPine BESYLATE 10 MG TABLET (FP) PO SCH (10:03)
[2020-04-30] MEDS: PRENATAL VITAMINS W/ FOLIC ACID TABLET (FP) PO SCH (10:03)
[2020-05-01] MEDS ORDERED: LORazepam 0.5 MG TABLET PO ONE (05:00)
== END 2020-04-30 11:02 | disposition left against medical advice (07) | DRG 894 ==
LOC: YASAS 22:03 → Y3N 23:14
PROVIDERS: ADMIT Allergy & Immunology; ATTEND Allergy & Immunology
PROC: HZ2ZZZZ Detoxification Services for Substance Abuse Treatment (ICD-10-PCS; principal; 2020-04-27)
DX: F10.230 Alcohol dependence with withdrawal, uncomplicated (principal); F10.280 Alcohol dependence with alcohol-induced anxiety disorder; F10.282 Alcohol dependence with alcohol-induced sleep disorder; F31.9 Bipolar disorder, unspecified; F25.9 Schizoaffective disorder, unspecified; D64.9 Anemia, unspecified; G47.00 Insomnia, unspecified; I10 Essential (primary) hypertension; J45.909 Unspecified asthma, uncomplicated; K21.9 Gastro-esophageal reflux disease without esophagitis; M17.0 Bilateral primary osteoarthritis of knee; Z87.891 Personal history of nicotine dependence; Z86.69 Personal history of other diseases of the nervous system and sense organs; Z88.0 Allergy status to penicillin; Z56.0 Unemployment, unspecified; Z59.0 Homelessness; Z91.19 Patient's noncompliance with other medical treatment and regimen
CPT/HCPCS: 36415; 80053; 81003; 84132; 85027; 86780; 93005; 93010; C9803; U0003

== ENCOUNTER 2021-12-03 03:21 | Inpatient (IN) | payer MEDICARE, OTHER ==
[2021-12-03] MEDS ORDERED: MAGNESIUM CITRATE 300 ML BOTTLE PO PRN (04:23)
[2021-12-03] MEDS ORDERED: IBUPROFEN 400 MG TABLET (FP) PO PRN (04:23)
[2021-12-03] MEDS ORDERED: ALBUTEROL SO4 HFA INHALER IH PRN (04:23)
[2021-12-03] MEDS ORDERED: BENZOCAINE/MENTHOL (CHLORASEPTIC ) LOZENGE MM PRN (04:23)
[2021-12-03] MEDS ORDERED: P-EPHED 60MG/TRIPROLIDI 2.5MG TABLET PO PRN (04:23)
[2021-12-03] MEDS ORDERED: ONDANSETRON *ODT* 4 MG TABLET SL PRN (04:23)
[2021-12-03] MEDS ORDERED: BISMUTH SUBSALICYLATE 524 MG/30 ML PO PRN (04:23)
[2021-12-03] MEDS ORDERED: IBUPROFEN 600 MG TABLET (FP) PO PRN (04:23)
[2021-12-03] MEDS ORDERED: LOPERAMIDE HCL 2 MG CAPSULE PO PRN (04:23)
[2021-12-03] MEDS ORDERED: DICYCLOMINE HCL 10 MG CAPSULE PO PRN (04:23)
[2021-12-03] MEDS ORDERED: guaiFENesin 200 MG/10 ML 10 ML UNIT-DOSE CUPS PO PRN (04:23)
[2021-12-03] MEDS ORDERED: MAGNESIUM HYDROX 2400MG/30ML ORAL SUSPENSION 30 ML CUP PO PRN (04:23)
[2021-12-03] MEDS ORDERED: MAG HYDROX/AL HYDROX/SIMETH 30 ML UNIT-DOSE CUP PO PRN (04:23)
[2021-12-03] MEDS ORDERED: ACETAMINOPHEN 325 MG TABLET (FP) PO PRN ×2 (04:23)
[2021-12-03] MEDS ORDERED: NALOXONE HCL (KLOXXADO) 8 MG SPRAY NS PRN (04:23)
[2021-12-03 04:37] VITALS: BMI 29.9
[2021-12-03] MEDS: hydrOXYzine PAMOATE 25 MG CAPSULE (FP) PO PRN (06:54)
[2021-12-03] MEDS: METHOCARBAMOL 500 MG TABLET PO PRN (06:54)
[2021-12-03] MEDS: amLODIPine BESYLATE 5 MG TABLET (FP) PO SCH (09:50)
[2021-12-03] MEDS: PRENATAL VITAMINS W/ FOLIC ACID TABLET (FP) PO SCH (09:50)
[2021-12-03] MEDS ORDERED: diazePAM 5 MG TABLET PO PRN (13:12)
[2021-12-03] MEDS ORDERED: diphenhydrAMINE HCL 25 MG CAPSULE (FP) PO ONE (16:45)
[2021-12-03] MEDS: diazePAM 5 MG TABLET PO SCH ×2 (19:07→22:32)
[2021-12-03 19:35] LABS: HEMATOCRIT 39.2 % (35.4-49); HEMOGLOBIN 12.1 GM/dL (11.7-16.9); MCH 21.4 pg (25.7-33.7); MCHC 30.8 g/dl (32.0-35.9); MEAN CELL VOLUME 69.6 fl (80-96); MEAN PLT VOLUME 8.9 fl (7.5-11.1); PLATELET COUNT 184 10^3/uL (134-434); RBC 5.63 M/mm3 (4.00-5.60); WHITE BLOOD COUNT 3.5 K/mm3 (4.0-10.0)
[2021-12-03 19:46] LABS: ALBUMIN 3.6 g/dl (3.4-5.0); CALCIUM 8.6 mg/dL (8.5-10.1)
[2021-12-03 19:47] LABS: BLOOD UREA NITROGEN 13.6 mg/dL (7-18)
[2021-12-03 19:50] LABS: BILIRUBIN,TOTAL 0.6 mg/dL (0.2-1); TOT PROT 6.8 g/dl (6.4-8.2)
[2021-12-03] MEDS: THIAMINE HCL 100 MG TABLET (FP) PO SCH (22:32)
[2021-12-03] MEDS: MELATONIN 5 MG TABLETS PO SCH (22:32)
[2021-12-04] MEDS ORDERED: diphenhydrAMINE HCL 25 MG CAPSULE (FP) PO ONE (01:36)
[2021-12-04] MEDS: hydrOXYzine PAMOATE 25 MG CAPSULE (FP) PO PRN (02:03)
[2021-12-04] MEDS ORDERED: diazePAM 5 MG TABLET PO SCH (06:00)
[2021-12-04] MEDS ORDERED: diphenhydrAMINE HCL 50 MG CAPSULE PO SCH ×2 (10:00→11:17)
[2021-12-04] MEDS: PRENATAL VITAMINS W/ FOLIC ACID TABLET (FP) PO SCH (10:15)
[2021-12-04] MEDS: amLODIPine BESYLATE 5 MG TABLET (FP) PO SCH (10:15)
[2021-12-04] MEDS: LORazepam 0.5 MG TABLET PO SCH ×3 (10:16→23:27)
[2021-12-04] MEDS: METHOCARBAMOL 500 MG TABLET PO PRN (17:29)
[2021-12-04] MEDS: MELATONIN 5 MG TABLETS PO SCH (22:13)
[2021-12-04] MEDS: THIAMINE HCL 100 MG TABLET (FP) PO SCH (22:13)
[2021-12-04] MEDS: diphenhydrAMINE HCL 50 MG CAPSULE PO ONE ×2 (22:13→22:14)
[2021-12-05] MEDS: LORazepam 0.5 MG TABLET PO SCH ×3 (05:52→22:26)
[2021-12-05] MEDS ORDERED: diazePAM 5 MG TABLET PO SCH (06:00)
[2021-12-05] MEDS: PRENATAL VITAMINS W/ FOLIC ACID TABLET (FP) PO SCH (10:21)
[2021-12-05] MEDS: amLODIPine BESYLATE 5 MG TABLET (FP) PO SCH (10:21)
[2021-12-05] MEDS ORDERED: diphenhydrAMINE HCL 25 MG CAPSULE (FP) PO PRN (11:06)
[2021-12-05 15:19] LABS: PH,URINE >= 9.0 (5.0-8.0); URINE APPEARANCE CLEAR; URINE BILIRUBIN NEGATIVE (NEGATIVE); URINE COLOR YELLOW; URINE GLUCOSE (UA) NEGATIVE (NEGATIVE); URINE KETONE NEGATIVE (NEGATIVE); URINE LEUK ESTERASE NEGATIVE (NEGATIVE); URINE NITRITE NEGATIVE (NEGATIVE); URINE PROTEIN NEGATIVE (NEGATIVE); URINE UROBILINOGEN 0.2 mg/dL (0.2-1.0)
[2021-12-05] MEDS: METHOCARBAMOL 500 MG TABLET PO PRN (17:48)
[2021-12-05] MEDS: diphenhydrAMINE HCL 25 MG CAPSULE (FP) PO PRN ×2 (17:48→22:27)
[2021-12-05] MEDS: MELATONIN 5 MG TABLETS PO SCH (22:25)
[2021-12-05] MEDS: THIAMINE HCL 100 MG TABLET (FP) PO SCH (22:25)
[2021-12-06] MEDS: LORazepam 0.5 MG TABLET PO SCH ×2 (05:51→18:02)
[2021-12-06] MEDS ORDERED: diazePAM 5 MG TABLET PO ONE (06:00)
[2021-12-06] MEDS: amLODIPine BESYLATE 5 MG TABLET (FP) PO SCH (10:17)
[2021-12-06] MEDS: METHOCARBAMOL 500 MG TABLET PO PRN (10:17)
[2021-12-06] MEDS: PRENATAL VITAMINS W/ FOLIC ACID TABLET (FP) PO SCH (10:17)
[2021-12-06] MEDS: diphenhydrAMINE HCL 25 MG CAPSULE (FP) PO PRN ×2 (10:19→22:29)
[2021-12-06 18:19] VITALS: RESP 18
[2021-12-06] MEDS: MELATONIN 5 MG TABLETS PO SCH (22:27)
[2021-12-06] MEDS: THIAMINE HCL 100 MG TABLET (FP) PO SCH (22:27)
[2021-12-07] MEDS ORDERED: LORazepam 0.5 MG TABLET PO ONE (06:00)
[2021-12-07 07:08] VITALS: TEMP 97.1
[2021-12-07 09:05] VITALS: BP 135/82; PULSE 88
[2021-12-07] MEDS: amLODIPine BESYLATE 5 MG TABLET (FP) PO SCH (09:24)
[2021-12-07] MEDS: PRENATAL VITAMINS W/ FOLIC ACID TABLET (FP) PO SCH (09:24)
== END 2021-12-07 09:45 | disposition home or self-care (01) | DRG 897 ==
LOC: YASAS 03:21 → Y6N 05:05
PROVIDERS: ADMIT Allergy & Immunology; ATTEND Surgery
PROC: HZ2ZZZZ Detoxification Services for Substance Abuse Treatment (ICD-10-PCS; principal; 2021-12-03)
DX: F10.230 Alcohol dependence with withdrawal, uncomplicated (principal); F31.9 Bipolar disorder, unspecified; G47.00 Insomnia, unspecified; I10 Essential (primary) hypertension; J45.20 Mild intermittent asthma, uncomplicated; K21.9 Gastro-esophageal reflux disease without esophagitis; M17.0 Bilateral primary osteoarthritis of knee; Z86.2 Personal history of diseases of the blood and blood-forming organs and certain disorders involving the immune mechanism; Z87.891 Personal history of nicotine dependence; Z28.310 Unvaccinated for COVID-19; Z28.9 Immunization not carried out for unspecified reason; Z88.0 Allergy status to penicillin; Z88.8 Allergy status to other drugs, medicaments and biological substances
CPT/HCPCS: 36415; 80053; 81003; 85027; 86780; C9803-CS; U0003; U0005

== ENCOUNTER 2022-02-17 09:02 | Inpatient (IN) | payer MEDICARE, OTHER ==
[2022-02-17 09:36] VITALS: BMI 32.5
[2022-02-17] MEDS ORDERED: BENZOCAINE/MENTHOL (CHLORASEPTIC ) LOZENGE MM PRN (10:38)
[2022-02-17] MEDS ORDERED: IBUPROFEN 600 MG TABLET (FP) PO PRN (10:38)
[2022-02-17] MEDS ORDERED: DICYCLOMINE HCL 10 MG CAPSULE PO PRN (10:38)
[2022-02-17] MEDS ORDERED: LORazepam 1 MG TABLET PO PRN (10:38)
[2022-02-17] MEDS ORDERED: BISMUTH SUBSALICYLATE 524 MG/30 ML PO PRN (10:38)
[2022-02-17] MEDS ORDERED: ACETAMINOPHEN 325 MG TABLET (FP) PO PRN ×2 (10:38)
[2022-02-17] MEDS ORDERED: METHOCARBAMOL 500 MG TABLET PO PRN (10:38)
[2022-02-17] MEDS ORDERED: POLYETHYLENE GLYCOL (HEALTHYLAX) 3350 17 GM PACKET PO PRN (10:38)
[2022-02-17] MEDS ORDERED: IBUPROFEN 400 MG TABLET (FP) PO PRN (10:38)
[2022-02-17] MEDS ORDERED: NALOXONE HCL (KLOXXADO) 8 MG SPRAY NS PRN (10:38)
[2022-02-17] MEDS ORDERED: MAG HYDROX/AL HYDROX/SIMETH 30 ML UNIT-DOSE CUP PO PRN (10:38)
[2022-02-17] MEDS ORDERED: LOPERAMIDE HCL 2 MG CAPSULE PO PRN (10:38)
[2022-02-17] MEDS ORDERED: MAGNESIUM HYDROX 2400MG/30ML ORAL SUSPENSION 30 ML CUP PO PRN (10:38)
[2022-02-17] MEDS ORDERED: ONDANSETRON *ODT* 4 MG TABLET SL PRN (10:38)
[2022-02-17] MEDS: PRENATAL VITAMINS W/ FOLIC ACID TABLET (FP) PO SCH (11:59)
[2022-02-17 15:29] LABS: HEMATOCRIT 39.3 % (35.4-49); HEMOGLOBIN 12.2 GM/dL (11.7-16.9); MCH 21.5 pg (25.7-33.7); MEAN CELL VOLUME 69.4 fl (80-96); MEAN PLT VOLUME 8.9 fl (7.5-11.1); PLATELET COUNT 236 10^3/uL (134-434); RBC 5.66 M/mm3 (4.00-5.60); RDW 17.8 % (11.9-15.9); WHITE BLOOD COUNT 4.8 K/mm3 (4.0-10.0)
[2022-02-17 15:33] LABS: ALBUMIN 3.8 g/dl (3.4-5.0); BLOOD UREA NITROGEN 12.2 mg/dL (7-18); CALCIUM 9.4 mg/dL (8.5-10.1)
[2022-02-17 15:36] LABS: CREATININE 1.1 mg/dL (0.55-1.3)
[2022-02-17 15:38] LABS: BILIRUBIN,TOTAL 0.6 mg/dL (0.2-1); TOT PROT 7.3 g/dl (6.4-8.2)
[2022-02-17] MEDS: LORazepam 2 MG TABLET PO SCH ×2 (17:39→22:13)
[2022-02-17] MEDS: MELATONIN 5 MG TABLETS PO SCH (22:13)
[2022-02-17] MEDS: THIAMINE HCL 100 MG TABLET (FP) PO SCH (22:13)
[2022-02-18] MEDS: LORazepam 2 MG TABLET PO SCH ×4 (05:23→22:12)
[2022-02-18] MEDS ORDERED: ALBUTEROL SO4 HFA INHALER IH PRN (07:51)
[2022-02-18] MEDS: amLODIPine BESYLATE 10 MG TABLET (FP) PO SCH (10:18)
[2022-02-18] MEDS: PRENATAL VITAMINS W/ FOLIC ACID TABLET (FP) PO SCH (10:18)
[2022-02-18] MEDS: MELATONIN 5 MG TABLETS PO SCH (22:12)
[2022-02-18] MEDS: hydrOXYzine PAMOATE 25 MG CAPSULE (FP) PO PRN (22:12)
[2022-02-18] MEDS: THIAMINE HCL 100 MG TABLET (FP) PO SCH (22:12)
[2022-02-19] MEDS: LORazepam 1 MG TABLET PO SCH ×4 (05:19→22:26)
[2022-02-19] MEDS: amLODIPine BESYLATE 10 MG TABLET (FP) PO SCH (10:15)
[2022-02-19] MEDS: PRENATAL VITAMINS W/ FOLIC ACID TABLET (FP) PO SCH (10:15)
[2022-02-19] MEDS: MELATONIN 5 MG TABLETS PO SCH (22:25)
[2022-02-19] MEDS: THIAMINE HCL 100 MG TABLET (FP) PO SCH (22:25)
[2022-02-19] MEDS: hydrOXYzine PAMOATE 25 MG CAPSULE (FP) PO PRN (22:27)
[2022-02-20] MEDS ORDERED: LORazepam 0.5 MG TABLET PO PRN
[2022-02-20] MEDS: LORazepam 0.5 MG TABLET PO SCH ×4 (05:23→22:07)
[2022-02-20] MEDS: amLODIPine BESYLATE 10 MG TABLET (FP) PO SCH (10:17)
[2022-02-20] MEDS: PRENATAL VITAMINS W/ FOLIC ACID TABLET (FP) PO SCH (10:17)
[2022-02-20] MEDS: MELATONIN 5 MG TABLETS PO SCH (22:08)
[2022-02-20] MEDS: hydrOXYzine PAMOATE 25 MG CAPSULE (FP) PO PRN (22:08)
[2022-02-20] MEDS: THIAMINE HCL 100 MG TABLET (FP) PO SCH (22:08)
[2022-02-21] MEDS ORDERED: LORazepam 0.5 MG TABLET PO ONE (05:00)
[2022-02-21 06:01] VITALS: RESP 18
[2022-02-21 09:09] VITALS: BP 120/70; PULSE 78; TEMP 97.3
== END 2022-02-21 09:50 | disposition home or self-care (01) | DRG 897 ==
LOC: YASAS 09:02 → Y3N 11:35
PROVIDERS: ADMIT Allergy & Immunology; ATTEND Surgery
PROC: HZ2ZZZZ Detoxification Services for Substance Abuse Treatment (ICD-10-PCS; principal; 2022-02-17)
DX: F10.230 Alcohol dependence with withdrawal, uncomplicated (principal); F14.20 Cocaine dependence, uncomplicated; I10 Essential (primary) hypertension; J45.20 Mild intermittent asthma, uncomplicated; M17.0 Bilateral primary osteoarthritis of knee; G47.00 Insomnia, unspecified; Z28.310 Unvaccinated for COVID-19; Z86.59 Personal history of other mental and behavioral disorders; Z88.0 Allergy status to penicillin; Z88.8 Allergy status to other drugs, medicaments and biological substances; Z91.199 Patient's noncompliance with other medical treatment and regimen due to unspecified reason; Z87.891 Personal history of nicotine dependence; Z56.0 Unemployment, unspecified
CPT/HCPCS: 36415; 80053; 82140; 85027; 86780; C9803-CS; U0003; U0005

== ENCOUNTER 2022-04-26 09:40 | Inpatient (IN) | payer MEDICARE ==
[2022-04-26 10:26] VITALS: BMI 34.9
[2022-04-26] MEDS ORDERED: ONDANSETRON *ODT* 4 MG TABLET SL PRN (12:12)
[2022-04-26] MEDS ORDERED: NALOXONE HCL (KLOXXADO) 8 MG SPRAY NS PRN (12:12)
[2022-04-26] MEDS ORDERED: IBUPROFEN 600 MG TABLET (FP) PO PRN (12:12)
[2022-04-26] MEDS ORDERED: ACETAMINOPHEN 325 MG TABLET (FP) PO PRN ×2 (12:12)
[2022-04-26] MEDS ORDERED: LOPERAMIDE HCL 2 MG CAPSULE PO PRN (12:12)
[2022-04-26] MEDS ORDERED: MAG HYDROX/AL HYDROX/SIMETH 30 ML UNIT-DOSE CUP PO PRN (12:12)
[2022-04-26] MEDS ORDERED: MAGNESIUM HYDROX 2400MG/30ML ORAL SUSPENSION 30 ML CUP PO PRN (12:12)
[2022-04-26] MEDS ORDERED: BENZOCAINE/MENTHOL (CHLORASEPTIC ) LOZENGE MM PRN (12:12)
[2022-04-26] MEDS ORDERED: chlordiazePOXIDE HCL 25 MG CAPSULE PO PRN (12:12)
[2022-04-26] MEDS ORDERED: BISMUTH SUBSALICYLATE 524 MG/30 ML PO PRN (12:12)
[2022-04-26] MEDS ORDERED: IBUPROFEN 400 MG TABLET (FP) PO PRN (12:12)
[2022-04-26] MEDS ORDERED: DICYCLOMINE HCL 10 MG CAPSULE PO PRN (12:12)
[2022-04-26] MEDS ORDERED: POLYETHYLENE GLYCOL (HEALTHYLAX) 3350 17 GM PACKET PO PRN (12:12)
[2022-04-26] MEDS ORDERED: ALBUTEROL SO4 HFA INHALER IH PRN (12:14)
[2022-04-26] MEDS ORDERED: amLODIPine BESYLATE 5 MG TABLET (FP) ONE (15:30)
[2022-04-26] MEDS: amLODIPine BESYLATE 5 MG TABLET (FP) PO SCH (15:36)
[2022-04-26] MEDS: chlordiazePOXIDE HCL 25 MG CAPSULE PO SCH ×2 (17:24→22:03)
[2022-04-26] MEDS: MELATONIN 5 MG TABLETS PO SCH (22:02)
[2022-04-26] MEDS: THIAMINE HCL 100 MG TABLET (FP) PO SCH (22:02)
[2022-04-26] MEDS: METHOCARBAMOL 500 MG TABLET PO PRN (22:04)
[2022-04-27] MEDS ORDERED: diphenhydrAMINE HCL 25 MG CAPSULE (FP) PO ONE (00:55)
[2022-04-27] MEDS ORDERED: LORazepam 2 MG TABLET PO ONE (06:30)
[2022-04-27] MEDS ORDERED: LORazepam 1 MG TABLET PO PRN (06:30)
[2022-04-27] MEDS: PRENATAL VITAMINS W/ FOLIC ACID TABLET (FP) PO SCH (10:25)
[2022-04-27] MEDS: amLODIPine BESYLATE 5 MG TABLET (FP) PO SCH (10:25)
[2022-04-27] MEDS: LORazepam 2 MG TABLET PO SCH ×3 (10:27→22:28)
[2022-04-27 11:55] LABS: HEMATOCRIT 36.3 % (35.4-49); MCH 22.7 pg (25.7-33.7); MCHC 33.2 g/dl (32.0-35.9); MEAN CELL VOLUME 68.3 fl (80-96); MEAN PLT VOLUME 8.8 fl (7.5-11.1); PLATELET COUNT 208 10^3/uL (134-434); RBC 5.31 M/mm3 (4.00-5.60); RDW 16.3 % (11.9-15.9); WHITE BLOOD COUNT 3.3 K/mm3 (4.0-10.0)
[2022-04-27 12:11] LABS: CALCIUM 8.3 mg/dL (8.5-10.1)
[2022-04-27 12:12] LABS: ALBUMIN 3.1 g/dl (3.4-5.0); BLOOD UREA NITROGEN 10.2 mg/dL (7-18)
[2022-04-27 12:13] LABS: CREATININE 0.8 mg/dL (0.55-1.3)
[2022-04-27 12:14] LABS: BILIRUBIN,TOTAL 0.6 mg/dL (0.2-1); TOT PROT 6.2 g/dl (6.4-8.2)
[2022-04-27] MEDS: THIAMINE HCL 100 MG TABLET (FP) PO SCH (22:24)
[2022-04-27] MEDS: MELATONIN 5 MG TABLETS PO SCH (22:24)
[2022-04-27] MEDS: hydrOXYzine PAMOATE 50 MG CAPSULE (FP) PO PRN (22:26)
[2022-04-27] MEDS: METHOCARBAMOL 500 MG TABLET PO PRN (22:27)
[2022-04-27] MEDS: GABAPENTIN 300 MG CAPSULE PO SCH (22:44)
[2022-04-28] MEDS ORDERED: chlordiazePOXIDE HCL 25 MG CAPSULE PO SCH (05:00)
[2022-04-28] MEDS: LORazepam 2 MG TABLET PO SCH ×4 (05:49→22:11)
[2022-04-28] MEDS: GABAPENTIN 300 MG CAPSULE PO SCH ×3 (05:49→22:10)
[2022-04-28] MEDS: PRENATAL VITAMINS W/ FOLIC ACID TABLET (FP) PO SCH (10:22)
[2022-04-28] MEDS: amLODIPine BESYLATE 5 MG TABLET (FP) PO SCH (10:22)
[2022-04-28] MEDS: hydrOXYzine PAMOATE 50 MG CAPSULE (FP) PO PRN ×2 (10:23→22:11)
[2022-04-28] MEDS: MELATONIN 5 MG TABLETS PO SCH (22:10)
[2022-04-28] MEDS: METHOCARBAMOL 500 MG TABLET PO PRN (22:10)
[2022-04-28] MEDS: THIAMINE HCL 100 MG TABLET (FP) PO SCH (22:11)
[2022-04-29] MEDS ORDERED: chlordiazePOXIDE HCL 10 MG CAPSULE PO PRN
[2022-04-29] MEDS ORDERED: chlordiazePOXIDE HCL 10 MG CAPSULE PO SCH (05:00)
[2022-04-29] MEDS: GABAPENTIN 300 MG CAPSULE PO SCH ×2 (05:33→14:11)
[2022-04-29] MEDS: LORazepam 1 MG TABLET PO SCH ×3 (05:33→17:36)
[2022-04-29] MEDS: PRENATAL VITAMINS W/ FOLIC ACID TABLET (FP) PO SCH (10:28)
[2022-04-29] MEDS: amLODIPine BESYLATE 5 MG TABLET (FP) PO SCH (10:28)
[2022-04-29 17:07] VITALS: BP 109/62; PULSE 88; RESP 18; TEMP 98.7
[2022-04-30] MEDS ORDERED: LORazepam 0.5 MG TABLET PO PRN
[2022-04-30] MEDS ORDERED: LORazepam 0.5 MG TABLET PO SCH (05:00)
[2022-04-30] MEDS ORDERED: chlordiazePOXIDE HCL 10 MG CAPSULE PO SCH (05:00)
[2022-05-01] MEDS ORDERED: LORazepam 0.5 MG TABLET PO ONE (05:00)
[2022-05-01] MEDS ORDERED: chlordiazePOXIDE HCL 10 MG CAPSULE PO ONE (05:00)
== END 2022-04-29 18:31 | disposition home or self-care (01) | DRG 897 ==
LOC: YASAS 09:40 → Y3N 14:52
PROVIDERS: ADMIT Allergy & Immunology; ATTEND Surgery
PROC: HZ2ZZZZ Detoxification Services for Substance Abuse Treatment (ICD-10-PCS; principal; 2022-04-26)
DX: F10.230 Alcohol dependence with withdrawal, uncomplicated (principal); F10.282 Alcohol dependence with alcohol-induced sleep disorder; F31.9 Bipolar disorder, unspecified; F25.9 Schizoaffective disorder, unspecified; F41.9 Anxiety disorder, unspecified; G62.9 Polyneuropathy, unspecified; I10 Essential (primary) hypertension; J45.20 Mild intermittent asthma, uncomplicated; K21.9 Gastro-esophageal reflux disease without esophagitis; M17.0 Bilateral primary osteoarthritis of knee; Z87.891 Personal history of nicotine dependence; Z88.0 Allergy status to penicillin; Z88.8 Allergy status to other drugs, medicaments and biological substances
CPT/HCPCS: 36415; 80053; 85027; 86780; C9803-CS; U0003; U0005

== ENCOUNTER 2022-10-12 21:26 | Inpatient (IN) | payer MEDICARE, OTHER ==
[2022-10-12 21:55] VITALS: BMI 31.6
[2022-10-12] MEDS ORDERED: POLYETHYLENE GLYCOL (HEALTHYLAX) 3350 17 GM PACKET PO PRN (22:14)
[2022-10-12] MEDS ORDERED: LOPERAMIDE HCL 2 MG CAPSULE PO PRN (22:14)
[2022-10-12] MEDS ORDERED: BENZONATATE 200 MG CAPSULE PO PRN (22:14)
[2022-10-12] MEDS ORDERED: chlordiazePOXIDE HCL 25 MG CAPSULE PO PRN (22:14)
[2022-10-12] MEDS ORDERED: MAGNESIUM HYDROX 2400MG/30ML ORAL SUSPENSION 30 ML CUP PO PRN (22:14)
[2022-10-12] MEDS ORDERED: MAG HYDROX/AL HYDROX/SIMETH 30 ML UNIT-DOSE CUP PO PRN (22:14)
[2022-10-12] MEDS ORDERED: IBUPROFEN 600 MG TABLET (FP) PO PRN (22:14)
[2022-10-12] MEDS ORDERED: IBUPROFEN 400 MG TABLET (FP) PO PRN (22:14)
[2022-10-12] MEDS ORDERED: guaiFENesin 600 MG TABLET.ER (FP) PO PRN (22:14)
[2022-10-12] MEDS ORDERED: NALOXONE HCL (KLOXXADO) 8 MG SPRAY NS PRN (22:14)
[2022-10-12] MEDS ORDERED: DICYCLOMINE HCL 10 MG CAPSULE PO PRN (22:14)
[2022-10-12] MEDS ORDERED: BISMUTH SUBSALICYLATE 524 MG/30 ML PO PRN (22:14)
[2022-10-12] MEDS ORDERED: NALOXONE HCL 0.4 MG/ML VIAL IM PRN (22:14)
[2022-10-12] MEDS ORDERED: ACETAMINOPHEN 325 MG TABLET (FP) PO PRN (22:14)
[2022-10-12] MEDS ORDERED: BENZOCAINE/MENTHOL (CHLORASEPTIC ) LOZENGE MM PRN (22:14)
[2022-10-12] MEDS ORDERED: ONDANSETRON *ODT* 4 MG TABLET SL PRN (22:14)
[2022-10-12] MEDS ORDERED: chlordiazePOXIDE HCL 25 MG CAPSULE ONE (22:41)
[2022-10-12] MEDS: chlordiazePOXIDE HCL 25 MG CAPSULE PO SCH (22:45)
[2022-10-12] MEDS ORDERED: ALBUTEROL SO4 HFA INHALER IH PRN (22:56)
[2022-10-13] MEDS: GABAPENTIN 300 MG CAPSULE PO SCH ×3 (05:28→22:38)
[2022-10-13] MEDS: chlordiazePOXIDE HCL 25 MG CAPSULE PO SCH ×4 (05:28→22:38)
[2022-10-13] MEDS: PRENATAL VITAMINS W/ FOLIC ACID TABLET (FP) PO SCH (10:30)
[2022-10-13] MEDS: amLODIPine BESYLATE 10 MG TABLET (FP) PO SCH (10:30)
[2022-10-13 11:26] LABS: HEMATOCRIT 35.6 % (35.4-49); HEMOGLOBIN 11.6 GM/dL (11.7-16.9); MCH 21.7 pg (25.7-33.7); MCHC 32.7 g/dl (32.0-35.9); MEAN CELL VOLUME 66.4 fl (80-96); MEAN PLT VOLUME 8.6 fl (7.5-11.1); PLATELET COUNT 168 10^3/uL (134-434); RBC 5.37 M/mm3 (4.00-5.60); RDW 16.2 % (11.9-15.9); WHITE BLOOD COUNT 2.9 K/mm3 (4.0-10.0)
[2022-10-13 11:33] LABS: POTASSIUM 3.9 mmol/L (3.5-5.1)
[2022-10-13 11:35] LABS: CALCIUM 8.1 mg/dL (8.5-10.1)
[2022-10-13 11:36] LABS: ALBUMIN 3.2 g/dl (3.4-5.0); BLOOD UREA NITROGEN 10.8 mg/dL (7-18)
[2022-10-13 11:39] LABS: CREATININE 0.8 mg/dL (0.55-1.3)
[2022-10-13 11:41] LABS: BILIRUBIN,TOTAL 0.7 mg/dL (0.2-1); TOT PROT 6.3 g/dl (6.4-8.2)
[2022-10-13] MEDS: MELOXICAM 15 MG TABLET PO SCH (15:52)
[2022-10-13] MEDS ORDERED: MELATONIN 5 MG TABLETS PO SCH (22:00)
[2022-10-13] MEDS: ATORVASTATIN CA 10 MG TABLET (FP) PO SCH (22:38)
[2022-10-13] MEDS: MIRTAZAPINE 15 MG TABLET (FP) PO SCH (22:40)
[2022-10-13] MEDS: THIAMINE HCL 100 MG TABLET (FP) PO SCH (22:41)
[2022-10-14] MEDS: chlordiazePOXIDE HCL 25 MG CAPSULE PO SCH ×4 (05:33→22:42)
[2022-10-14] MEDS: GABAPENTIN 300 MG CAPSULE PO SCH ×3 (05:33→22:42)
[2022-10-14] MEDS: amLODIPine BESYLATE 10 MG TABLET (FP) PO SCH (10:22)
[2022-10-14] MEDS: PRENATAL VITAMINS W/ FOLIC ACID TABLET (FP) PO SCH (10:23)
[2022-10-14] MEDS: MELOXICAM 15 MG TABLET PO SCH (10:23)
[2022-10-14] MEDS: METHOCARBAMOL 500 MG TABLET PO PRN (17:33)
[2022-10-14] MEDS: hydrOXYzine PAMOATE 50 MG CAPSULE (FP) PO PRN (22:42)
[2022-10-14] MEDS: ATORVASTATIN CA 10 MG TABLET (FP) PO SCH (22:42)
[2022-10-14] MEDS: MIRTAZAPINE 15 MG TABLET (FP) PO SCH (22:42)
[2022-10-14] MEDS: THIAMINE HCL 100 MG TABLET (FP) PO SCH (22:42)
[2022-10-15] MEDS ORDERED: chlordiazePOXIDE HCL 10 MG CAPSULE PO PRN
[2022-10-15] MEDS: GABAPENTIN 300 MG CAPSULE PO SCH ×3 (05:49→22:28)
[2022-10-15] MEDS: chlordiazePOXIDE HCL 10 MG CAPSULE PO SCH ×4 (05:49→22:29)
[2022-10-15] MEDS: METHOCARBAMOL 500 MG TABLET PO PRN (09:02)
[2022-10-15] MEDS: MELOXICAM 15 MG TABLET PO SCH (10:07)
[2022-10-15] MEDS: amLODIPine BESYLATE 10 MG TABLET (FP) PO SCH (10:07)
[2022-10-15] MEDS: PRENATAL VITAMINS W/ FOLIC ACID TABLET (FP) PO SCH (10:07)
[2022-10-15] MEDS: LIDOCAINE 5% TOPICAL PATCH TP SCH ×2 (10:10→13:35)
[2022-10-15] MEDS: HYDROCORTISONE 1% TOPICAL CREAM 30 GM TUBE TP SCH ×2 (11:00→22:36)
[2022-10-15] MEDS: THIAMINE HCL 100 MG TABLET (FP) PO SCH (22:29)
[2022-10-15] MEDS: ATORVASTATIN CA 10 MG TABLET (FP) PO SCH (22:30)
[2022-10-15] MEDS: hydrOXYzine PAMOATE 50 MG CAPSULE (FP) PO PRN (22:31)
[2022-10-15] MEDS: METHYL SALICYLATE/MENTHOL OINT 30 GM TUBE TP SCH (22:32)
[2022-10-15] MEDS: MIRTAZAPINE 15 MG TABLET (FP) PO SCH (22:36)
[2022-10-15] MEDS: LIDOCAINE PATCH REMOVAL MC SCH ×2 (22:36)
[2022-10-16] MEDS: chlordiazePOXIDE HCL 10 MG CAPSULE PO SCH ×2 (05:12→17:39)
[2022-10-16] MEDS: METHOCARBAMOL 500 MG TABLET PO PRN (05:12)
[2022-10-16] MEDS: GABAPENTIN 300 MG CAPSULE PO SCH ×3 (05:12→22:55)
[2022-10-16] MEDS: amLODIPine BESYLATE 10 MG TABLET (FP) PO SCH (10:36)
[2022-10-16] MEDS: HYDROCORTISONE 1% TOPICAL CREAM 30 GM TUBE TP SCH ×2 (10:36→23:00)
[2022-10-16] MEDS: PRENATAL VITAMINS W/ FOLIC ACID TABLET (FP) PO SCH (10:36)
[2022-10-16] MEDS: MELOXICAM 15 MG TABLET PO SCH (10:36)
[2022-10-16] MEDS: LIDOCAINE 5% TOPICAL PATCH TP SCH ×2 (10:38)
[2022-10-16 21:29] VITALS: TEMP 97.8
[2022-10-16] MEDS: ATORVASTATIN CA 10 MG TABLET (FP) PO SCH (22:55)
[2022-10-16] MEDS: THIAMINE HCL 100 MG TABLET (FP) PO SCH (22:55)
[2022-10-16] MEDS: LIDOCAINE PATCH REMOVAL MC SCH ×2 (22:56)
[2022-10-16] MEDS: MIRTAZAPINE 15 MG TABLET (FP) PO SCH (22:57)
[2022-10-16] MEDS: hydrOXYzine PAMOATE 50 MG CAPSULE (FP) PO PRN (22:59)
[2022-10-16] MEDS: METHYL SALICYLATE/MENTHOL OINT 30 GM TUBE TP SCH (23:00)
[2022-10-17] MEDS ORDERED: chlordiazePOXIDE HCL 10 MG CAPSULE PO ONE (05:00)
[2022-10-17] MEDS: GABAPENTIN 300 MG CAPSULE PO SCH (06:11)
[2022-10-17] MEDS: hydrOXYzine PAMOATE 50 MG CAPSULE (FP) PO PRN (06:11)
[2022-10-17] MEDS: HYDROCORTISONE 1% TOPICAL CREAM 30 GM TUBE TP SCH (09:50)
[2022-10-17] MEDS: PRENATAL VITAMINS W/ FOLIC ACID TABLET (FP) PO SCH (09:50)
[2022-10-17] MEDS: LIDOCAINE 5% TOPICAL PATCH TP SCH ×2 (09:51)
[2022-10-17] MEDS: amLODIPine BESYLATE 10 MG TABLET (FP) PO SCH (09:52)
[2022-10-17] MEDS: MELOXICAM 15 MG TABLET PO SCH (09:52)
[2022-10-17 10:09] VITALS: BP 137/84; PULSE 90; RESP 18
== END 2022-10-17 10:56 | disposition home or self-care (01) | DRG 897 ==
LOC: YASAS 21:26 → Y6N 22:21
PROVIDERS: ADMIT Allergy & Immunology; ATTEND Allergy & Immunology
PROC: HZ2ZZZZ Detoxification Services for Substance Abuse Treatment (ICD-10-PCS; principal; 2022-10-12)
DX: F10.230 Alcohol dependence with withdrawal, uncomplicated (principal); F25.9 Schizoaffective disorder, unspecified; F10.280 Alcohol dependence with alcohol-induced anxiety disorder; F10.282 Alcohol dependence with alcohol-induced sleep disorder; F10.24 Alcohol dependence with alcohol-induced mood disorder; F31.9 Bipolar disorder, unspecified; G62.9 Polyneuropathy, unspecified; I10 Essential (primary) hypertension; J45.909 Unspecified asthma, uncomplicated; K21.9 Gastro-esophageal reflux disease without esophagitis; M17.0 Bilateral primary osteoarthritis of knee; Z87.891 Personal history of nicotine dependence; Z88.0 Allergy status to penicillin; Z88.8 Allergy status to other drugs, medicaments and biological substances
CPT/HCPCS: 36415; 80053; 85027; 86780; 87635; 87811

== ENCOUNTER 2023-01-24 01:17 | Inpatient (IN) | payer OTHER ==
[2023-01-24 01:30] VITALS: BMI 33.3
[2023-01-24] MEDS ORDERED: guaiFENesin 600 MG TABLET.ER (FP) PO PRN (02:10)
[2023-01-24] MEDS ORDERED: ACETAMINOPHEN 325 MG TABLET (FP) PO PRN (02:10)
[2023-01-24] MEDS ORDERED: ONDANSETRON *ODT* 4 MG TABLET SL PRN (02:10)
[2023-01-24] MEDS ORDERED: BENZONATATE 200 MG CAPSULE PO PRN (02:10)
[2023-01-24] MEDS ORDERED: NALOXONE HCL 0.4 MG/ML VIAL IM PRN (02:10)
[2023-01-24] MEDS ORDERED: IBUPROFEN 600 MG TABLET (FP) PO PRN (02:10)
[2023-01-24] MEDS ORDERED: POLYETHYLENE GLYCOL (HEALTHYLAX) 3350 17 GM PACKET PO PRN (02:10)
[2023-01-24] MEDS ORDERED: MAG HYDROX/AL HYDROX/SIMETH 30 ML UNIT-DOSE CUP PO PRN (02:10)
[2023-01-24] MEDS ORDERED: NALOXONE HCL (KLOXXADO) 8 MG SPRAY NS PRN (02:10)
[2023-01-24] MEDS ORDERED: IBUPROFEN 400 MG TABLET (FP) PO PRN (02:10)
[2023-01-24] MEDS ORDERED: BISMUTH SUBSALICYLATE 524 MG/30 ML PO PRN (02:10)
[2023-01-24] MEDS ORDERED: MAGNESIUM HYDROX 2400MG/30ML ORAL SUSPENSION 30 ML CUP PO PRN (02:10)
[2023-01-24] MEDS ORDERED: LOPERAMIDE HCL 2 MG CAPSULE PO PRN (02:10)
[2023-01-24] MEDS ORDERED: BENZOCAINE/MENTHOL (CHLORASEPTIC ) LOZENGE MM PRN (02:10)
[2023-01-24] MEDS ORDERED: MELATONIN 5 MG TABLETS PO ONE ×2 (02:24)
[2023-01-24] MEDS ORDERED: LORazepam 1 MG TABLET PO PRN (10:08)
[2023-01-24] MEDS: PRENATAL VITAMINS W/ FOLIC ACID TABLET (FP) PO SCH (10:45)
[2023-01-24] MEDS: amLODIPine BESYLATE 10 MG TABLET (FP) PO SCH (10:45)
[2023-01-24] MEDS ORDERED: LORazepam 2 MG TABLET PO SCH (11:00)
[2023-01-24] MEDS: LORazepam 1 MG TABLET PO SCH ×3 (11:03→22:56)
[2023-01-24] MEDS ORDERED: hydrOXYzine PAMOATE 25 MG CAPSULE (FP) PO PRN (14:21)
[2023-01-24] MEDS ORDERED: MELATONIN 5 MG TABLETS PO SCH (22:00)
[2023-01-24] MEDS: THIAMINE HCL 100 MG TABLET (FP) PO SCH (22:56)
[2023-01-24] MEDS: ATORVASTATIN CA 10 MG TABLET (FP) PO SCH (22:56)
[2023-01-24] MEDS: hydrOXYzine PAMOATE 25 MG CAPSULE (FP) PO SCH (22:56)
[2023-01-24] MEDS: MIRTAZAPINE 15 MG TABLET (FP) PO SCH (22:57)
[2023-01-25] MEDS: LORazepam 1 MG TABLET PO SCH ×4 (05:18→22:24)
[2023-01-25] MEDS: PRENATAL VITAMINS W/ FOLIC ACID TABLET (FP) PO SCH (10:02)
[2023-01-25] MEDS: amLODIPine BESYLATE 10 MG TABLET (FP) PO SCH (10:02)
[2023-01-25 15:30] LABS: HEMATOCRIT 42.3 % (35.4-49); HEMOGLOBIN 13.3 GM/dL (11.7-16.9); MCH 21.5 pg (25.7-33.7); MCHC 31.5 g/dl (32.0-35.9); MEAN CELL VOLUME 68.2 fl (80-96); MEAN PLT VOLUME 8.7 fl (7.5-11.1); PLATELET COUNT 271 10^3/uL (134-434); RDW 16.3 % (11.9-15.9); WHITE BLOOD COUNT 5.2 K/mm3 (4.0-10.0)
[2023-01-25 15:37] LABS: POTASSIUM 4.1 mmol/L (3.5-5.1)
[2023-01-25 15:43] LABS: ALBUMIN 3.6 g/dl (3.4-5.0); BLOOD UREA NITROGEN 10.2 mg/dL (7-18); CALCIUM 8.9 mg/dL (8.5-10.1)
[2023-01-25 15:48] LABS: BILIRUBIN,TOTAL 0.7 mg/dL (0.2-1); TOT PROT 7.4 g/dl (6.4-8.2)
[2023-01-25] MEDS: THIAMINE HCL 100 MG TABLET (FP) PO SCH (22:23)
[2023-01-25] MEDS: ATORVASTATIN CA 10 MG TABLET (FP) PO SCH (22:23)
[2023-01-25] MEDS: hydrOXYzine PAMOATE 25 MG CAPSULE (FP) PO SCH (22:23)
[2023-01-25] MEDS: MIRTAZAPINE 15 MG TABLET (FP) PO SCH (22:23)
[2023-01-26] MEDS ORDERED: LORazepam 0.5 MG TABLET PO PRN
[2023-01-26] MEDS: LORazepam 0.5 MG TABLET PO SCH ×4 (06:00→22:43)
[2023-01-26] MEDS: amLODIPine BESYLATE 10 MG TABLET (FP) PO SCH (10:33)
[2023-01-26] MEDS: PRENATAL VITAMINS W/ FOLIC ACID TABLET (FP) PO SCH (10:33)
[2023-01-26] MEDS: METHYL SALICYLATE/MENTHOL OINT 30 GM TUBE TP SCH ×2 (10:38→22:43)
[2023-01-26 10:59] LABS: CHOLESTEROL 146 mg/dL (50-200)
[2023-01-26 11:00] LABS: LDL CHOLESTEROL (ONLY SJRH) 62 mg/dL (5-100)
[2023-01-26 11:03] LABS: HDL CHOLESTEROL 76 mg/dL (40-60)
[2023-01-26] MEDS ORDERED: SUVOREXANT 10 MG TABLET PO PRN (22:00)
[2023-01-26] MEDS: ATORVASTATIN CA 10 MG TABLET (FP) PO SCH (22:42)
[2023-01-26] MEDS: THIAMINE HCL 100 MG TABLET (FP) PO SCH (22:42)
[2023-01-26] MEDS: hydrOXYzine PAMOATE 25 MG CAPSULE (FP) PO SCH (22:42)
[2023-01-26] MEDS: MIRTAZAPINE 15 MG TABLET (FP) PO SCH (22:43)
[2023-01-27] MEDS ORDERED: LORazepam 0.5 MG TABLET PO ONE (05:00)
[2023-01-27 09:14] VITALS: BP 129/82; PULSE 100; RESP 16; TEMP 98.1
[2023-01-27] MEDS: PRENATAL VITAMINS W/ FOLIC ACID TABLET (FP) PO SCH (10:09)
[2023-01-27] MEDS: METHYL SALICYLATE/MENTHOL OINT 30 GM TUBE TP SCH (10:09)
[2023-01-27] MEDS: amLODIPine BESYLATE 10 MG TABLET (FP) PO SCH (10:09)
== END 2023-01-27 11:28 | disposition home or self-care (01) | DRG 897 ==
LOC: YASAS 01:17 → Y6N 02:39
PROVIDERS: ADMIT Allergy & Immunology; ATTEND Surgery
PROC: HZ2ZZZZ Detoxification Services for Substance Abuse Treatment (ICD-10-PCS; principal; 2023-01-24)
DX: F10.230 Alcohol dependence with withdrawal, uncomplicated (principal); F19.282 Other psychoactive substance dependence with psychoactive substance-induced sleep disorder; F25.9 Schizoaffective disorder, unspecified; F32.A Depression, unspecified; I10 Essential (primary) hypertension; J45.20 Mild intermittent asthma, uncomplicated; M15.9 Polyosteoarthritis, unspecified; M17.0 Bilateral primary osteoarthritis of knee; Z99.89 Dependence on other enabling machines and devices; Z87.891 Personal history of nicotine dependence; Z28.310 Unvaccinated for COVID-19; Z28.9 Immunization not carried out for unspecified reason; Z88.0 Allergy status to penicillin; Z88.8 Allergy status to other drugs, medicaments and biological substances
CPT/HCPCS: 36415; 80053; 80061; 80307; 85027; 86780; 87635; 87811; 93005; 93010